=== PATIENT | male | born 1935 | race Caucasian/White ===

== ENCOUNTER → 2016-07-06 | Outpatient (CLI) | payer BC ==
[~2016-07-06] MED LIST: ANT25 PO; ASCA500 PO; ASCO500T16 PO; ASPEC81 PO; ASPI81TA28 PO; BUME1TAB PO; BUME2TAB3 PO; CALC-354 PO; CHOL400C7 PO; CHOL400T PO; CHOLTAB3 PO; CLTP PO; Cholecalciferol PO; FRS/40 PO; FURO40TA3 PO; GLUCTAB18 PO; ISOS30TA3 PO; LSX40 PO; MCRK20 PO; METO5TAB25 PO; NTRGSL/4 UT; OXYC1TAB3 PO; POTA10CA28 PO; REDCAP2 PO; TELM40TA11 PO; TRIA0.1C20 TOP; WARF-283 PO; WARF4TAB PO; WARF5TAB7 PO; WARF5TAB90 PO
[2016-07-06 10:19] LABS: BASO % 0.9 %; BASO ABS # 0.05 K/uL (0-0.2); COMPLETE YES; EOS % 4.7 %; HEMATOCRIT 38.6 % (42-52); IG% 0.2 %; LYMPH % 16.2 %; MEAN CELL VOLUME 91.9 fL (80-100); MEAN CORPUSCULAR HEMOGLOBIN 31.4 pg (25-34); MEAN CORPUSCULAR HGB CONC 34.2 g/dl (32-36); MEAN PLATELET VOLUME 10.9 fL (7.4-10.4); MONO % 15.5 %; NEUT % 62.5 %; PLATELET COUNT 141 K/uL (130-400); WHITE BLOOD COUNT 5.55 K/uL (4.8-10.8)
[2016-07-06 10:39] LABS: ESTIMATED AVERAGE GLUCOSE 131 mg/dl; HA1C FLAG Normal (Normal)
[2016-07-06 10:46] LABS: ALT/SGPT 30 U/L (12-78); BLOOD UREA NITROGEN 30 mg/dl (7-18); BUN/CREATININE RATIO 26.9 (10-20); CALCIUM 9.2 mg/dl (8.5-10.1); CARBON DIOXIDE 30 mmol/L (21-32); CHLORIDE 102 mmol/L (98-107); CHOLESTEROL 187 mg/dl (0-200); GLUCOSE 104 mg/dl (70-99); SODIUM 141 mmol/L (136-145)
[2016-07-06 10:49] LABS: ALKALINE PHOSPHATASE 152 U/L (45-117); AST/SGOT 33 U/L (15-37); CHOLESTEROL/HDL RATIO 1.9; HDL CHOLESTEROL 99 mg/dl; LDL CHOLESTEROL CALCULATED 78 mg/dl; TRIGLYCERIDES 49 mg/dl (0-150); VERY LOW DENSITY LIPOPROT CALC 10 mg/dl
== END | disposition home or self-care (01) ==
LOC: C.LAB 09:08
PROVIDERS: ATTEND Internal Medicine
DX: E11.9 Type 2 diabetes mellitus without complications (principal); Z51.81 Encounter for therapeutic drug level monitoring; Z79.01 Long term (current) use of anticoagulants; Z95.2 Presence of prosthetic heart valve

== ENCOUNTER 2016-09-27 09:58 | Inpatient (IN) | payer BC, OTHER ==
[~2016-09-27] VITALS: Ht 180.3 cm; Wt 91.7 kg
[~2016-09-27 09:58] MED LIST changes: -ASCO500T16 PO; -ASPI81TA28 PO; -BUME1TAB PO; -CALC-354 PO; -CHOL400C7 PO; -CHOL400T PO; -Cholecalciferol PO; -FRS/40 PO; -FURO40TA3 PO; -LSX40 PO; -MCRK20 PO; -OXYC1TAB3 PO; -POTA10CA28 PO; -WARF-283 PO; -WARF5TAB7 PO
[2016-09-27] MEDS ORDERED: ASPI81TA28 PO (10:37)
[2016-09-27] MEDS ORDERED: ASCO500T16 PO (10:37)
[2016-09-27] MEDS ORDERED: CALC-354 PO (10:39)
[2016-09-27] MEDS ORDERED: CHOL400T PO (10:39)
[2016-09-27 10:42] LABS: BASO % 0.5 %; BASO ABS # 0.04 K/uL (0-0.2); COMPLETE YES; EOS % 2.5 %; HEMATOCRIT 35.8 % (42-52); IG% 0.1 %; LYMPH % 12.9 %; LYMPH ABS # 0.98 K/uL (1.2-3.4); MEAN CORPUSCULAR HEMOGLOBIN 31.2 pg (25-34); MEAN CORPUSCULAR HGB CONC 33.5 g/dl (32-36); MEAN PLATELET VOLUME 10.1 fL (7.4-10.4); MONO % 14.8 %; NEUT % 69.2 %; PLATELET COUNT 189 K/uL (130-400); RED BLOOD COUNT 3.85 M/uL (4.7-6.1); WHITE BLOOD COUNT 7.61 K/uL (4.8-10.8)
[2016-09-27 10:44] LABS: POINT OF CARE TROPONIN I 0.04 ng/ml (0-0.045)
--- NOTE | 2016-09-27 10:46 | DIAGNOSTIC IMAGING REPORT ---
CHEST ONE VIEW PORTABLE CLINICAL HISTORY: shortness of breath, edema COMPARISON STUDY: 04/21/2015 FINDINGS: There are postsurgical changes of a midline sternotomy. The heart remains enlarged. There is a left subclavian single chamber central venous pacemaker. There is no overt failure. There are no pleural effusions. There is mild interstitial thickening. No definite Aurelio B lines are evident.[ IMPRESSION: 1. Persistent cardiomegaly. No evidence of focal pulmonary consolidation. No evidence of overt edema. Electronically signed by: Godwin Masters M.D. 09/27/2016 10:45 AM Dictated Date/Time: 09/27/2016 10:44 AM
[2016-09-27 10:50] LABS: INR 2.1 (0.9-1.1); PARTIAL THROMBOPLASTIN RATIO 1.5; PROTHROMBIN TIME (PATIENT) 23.1 SECONDS (9.0-12.0)
[2016-09-27 11:02] LABS: CALCIUM 9.7 mg/dl (8.5-10.1)
[2016-09-27 11:04] LABS: BUN/CREATININE RATIO 24.2 (10-20); CREATININE 1.9 mg/dl (0.60-1.40); POTASSIUM 3.4 mmol/L (3.5-5.1)
[2016-09-27 11:07] LABS: ALB/GLOB RATIO 0.9 (0.9-2)
[2016-09-27 12:00] VITALS: O2SAT 96; Ht 180.3 cm; Wt 91.7 kg
[2016-09-27] MEDS ORDERED: FUROSEMIDE 40 MG/4 ML VIAL IV STA (12:23)
--- NOTE | 2016-09-27 12:25 | History and Physical ---
History & Physical Date & Time of Service: September 27, 2016 at 12:14 Chief Complaint: Referral For Cardiac Issue Primary Care Physician: Rafita Arguello M.D. History of Present Illness Source: patient, clinic records, hospital records This patient is a pleasant 81-year-old male that presents emergency department complaining of an approximately 25 pound weight gain over the last several days and dyspnea with exertion. The patient has a history of CHF, A. fib status post a mechanical AVR and pacemaker. Initially, the patient was treated with Lasix. He says that this no longer works well for him. He was then started on Bumex 4 mg daily, which did control his symptoms for some time. He went back to the traffic investigator earlier this month. His Bumex was increased to 4 mg daily. He was also started on Metolazone twice weekly. He still is unfortunately gaining weight. He denies any anginal symptoms such as chest pain or pressure. No dizziness. Denies any nausea or clamminess. He is otherwise been healthy recently. Past Medical/Surgical History Medical Problems: (1) Atrial fibrillation Status: Chronic (2) CAD (coronary artery disease) Status: Chronic (3) Colon cancer Status: Chronic (4) DM2 (diabetes mellitus, type 2) Status: Chronic (5) Dyslipidemia Status: Chronic (6) Mitral stenosis Status: Chronic (7) Pacemaker Status: Chronic (8) Prostate cancer Status: Chronic (9) Pulmonary hypertension Status: Chronic History of rheumatic fever History of colon cancer status post resection in 2012 Surgical Problems: (1) Aortic valve replaced Status: Resolved (2) Hx of CABG Status: Resolved Family History Cancer Diabetes mellitus Social History Smoking Status: Former Smoker Alcohol Use: none Drug Use: none Marital Status: Housing status: lives alone Occupational Status: retired Immunizations History of Influenza Vaccine: Yes History of Tetanus Vaccine?: Yes History of Pneumococcal: Yes History of Hepatitis B Vaccine: No Multi-Drug Resistant Organisms History of MDRO: No Allergies Coded Allergies: SUSAN Inhibitors (Verified Adverse Reaction, Intermediate, cough, 02/11/16) Statins (Verified Adverse Reaction, Intermediate, myalgia, 02/11/16) Home Medications Scheduled Ascorbic Acid (Ascorbic Acid), 500 MG PO DAILY Aspirin (Aspirin Ec), 81 MG PO DAILY Bumetanide (Bumex), 3 MG PO DAILY Calcium Carbonate-Cholecalcife (Caltrate 600+D), 1 TAB PO BID Cholecalciferol (Vitamin D), 1 TAB PO DAILY Glucosamine-Chondroitin (Osteo Bi-Flex Regular Str), 1 TAB PO QAM Isosorbide Mononitrate Ext Rel (Imdur Ext Rel), 30 MG PO QAM Nitroglycerin (Nitrostat), 0.4 MG UT PRN Red Yeast Rice Extract (Red Yeast Rice), 1,200 MG PO QAM Telmisartan (Micardis), 40 MG PO QPM Warfarin Sodium (Coumadin), 4 MG PO 4XWK Warfarin Sodium (Coumadin), 5 MG PO 3XWK Scheduled PRN Meclizine HCl (Meclizine HCl), 25 MG PO TID PRN for Dizziness or Vertigo Metolazone (Zaroxolyn), 5 MG PO UD PRN for edema Review of Systems 10 system review performed and negative unless noted in HPI or below Physical Exam Vital Signs Date Time Temp Pulse Resp B/P Pulse Ox O2 Delivery O2 Flow Rate FiO2 09/27/16 10:32 64 09/27/16 10:15 96 Room Air 09/27/16 10:15 99 Room Air 09/27/16 10:12 96 Room Air 09/27/16 10:08 36.6 73 18 119/68 96 Room Air General Appearance: no apparent distress Head: normocephalic Eyes: EOMI Neck: no JVD Respiratory/Chest: lungs clear Cardiovascular: regular rate, rhythm, + systolic murmur Abdomen/GI: normal bowel sounds, non tender, soft, + pertinent finding ( slightly distended.) Extremities/Musculoskelatal: + pertinent finding (+2 pitting edema in the lower extremities without any erythema, tenderness or warmth appreciated bilaterally.) Neurologic/Psych: no motor/sensory deficits, oriented x 3 Skin: warm/dry Diagnostics Laboratory Results Results Past 24 Hours Test 09/27/16 10:18 09/27/16 10:24 Range/Units White Blood Count 7.61 4.8-10.8 K/uL Red Blood Count 3.85 4.7-6.1 M/uL Hemoglobin 12.0 14.0-18.0 g/dL Hematocrit 35.8 42-52 % Mean Corpuscular Volume 93.0 80-100 fL Mean Corpuscular Hemoglobin 31.2 25-34 pg Mean Corpuscular Hemoglobin Concent 33.5 32-36 g/dl Platelet Count 189 130-400 K/uL Mean Platelet Volume 10.1 7.4-10.4 fL Neutrophils (%) (Auto) 69.2 % Lymphocytes (%) (Auto) 12.9 % Monocytes (%) (Auto) 14.8 % Eosinophils (%) (Auto) 2.5 % Basophils (%) (Auto) 0.5 % Neutrophils # (Auto) 5.26 1.4-6.5 K/uL Lymphocytes # (Auto) 0.98 1.2-3.4 K/uL Monocytes # (Auto) 1.13 0.11-0.59 K/uL Eosinophils # (Auto) 0.19 0-0.5 K/uL Basophils # (Auto) 0.04 0-0.2 K/uL RDW Standard Deviation 53.6 36.4-46.3 fL RDW Coefficient of Variation 15.9 11.5-14.5 % Immature Granulocyte % (Auto) 0.1 % Immature Granulocyte # (Auto) 0.01 0.00-0.02 K/uL Prothrombin Time 23.1 9.0-12.0 SECONDS Prothromb Time International Ratio 2.1 0.9-1.1 Activated Partial Thromboplast Time 39.6 21.0-31.0 SECONDS Partial Thromboplastin Ratio 1.5 Sodium Level 138 136-145 mmol/L Potassium Level 3.4 3.5-5.1 mmol/L Chloride Level 98 98-107 mmol/L Carbon Dioxide Level 32 21-32 mmol/L Anion Gap 8.0 3-11 mmol/L Blood Urea Nitrogen 46 7-18 mg/dl Creatinine 1.90 0.60-1.40 mg/dl Est Creatinine Clear Calc Drug Dose 37.7 ml/min Estimated GFR () 37.7 Estimated GFR (Non- 32.6 BUN/Creatinine Ratio 24.2 10-20 Random Glucose 97 70-99 mg/dl Calcium Level 9.7 8.5-10.1 mg/dl Total Bilirubin 2.1 0.2-1 mg/dl Aspartate Amino Transf (AST/SGOT) 45 15-37 U/L Alanine Aminotransferase (ALT/SGPT) 33 12-78 U/L Alkaline Phosphatase 163 45-117 U/L Total Protein 7.2 6.4-8.2 gm/dl Albumin 3.4 3.4-5.0 gm/dl Globulin 3.8 2.5-4.0 gm/dl Albumin/Globulin Ratio 0.9 0.9-2 Bedside Troponin I 0.040 0-0.045 ng/ml NI-Zmp-[id number]-Type Natriuretic Peptide 1508 0-1800 pg/ml Diagnostic Radiology Patient: NICK RUSSELL Address1: [address] [place] [address] Rec: [id number] Address2: [facility] [address] Acct ID: [id number] [facility] Zip: [place] [address] Date: 1935 Sex: M Room/Bed: Ref Phy: Rafita Arguello M.D. SC: DANIELLE Att Phy: Report #: [id number] [place] Phy: Rafita Arguello M.D. Test: [id number] Admit Phy: Thread Pulling Machine Attendant: JOHAN Interpreting Phy: Godwin Masters M.D. Diagnosis: REFERRAL FOR CARDIAC ISSUE Ordering Phy: ED, PROTOCOL Service Date: 09/27/16 Admit Date: 09/27/16 MNE: [id number] CONF: DICTATED BY: Godwin Masters M.D.]] CC: ED,PROTOCOL Rafita Arguello M.D. No Doctor, Assigned Endcc: [~ rep ct add3]] CHEST ONE VIEW PORTABLE CLINICAL HISTORY: shortness of breath, edema COMPARISON STUDY: 04/21/2015 FINDINGS: There are postsurgical changes of a midline sternotomy. The heart remains enlarged. There is a left subclavian single chamber central venous pacemaker. There is no overt failure. There are no pleural effusions. There is mild interstitial thickening. No definite Aurelio B lines are evident.[ IMPRESSION: 1. Persistent cardiomegaly. No evidence of focal pulmonary consolidation. No evidence of overt edema. Electronically signed by: Godwin Masters M.D. 09/27/2016 10:45 AM Dictated Date/Time: 09/27/2016 10:44 AM The status of this report is Signed. Draft = Not yet reviewed or approved by Radiologist. Signed = Reviewed and approved by Radiologist. <AttendingPhy></AttendingPhy> <FamilyPhy>Rafita Arguello M.D.</FamilyPhy> < PrimaryPhy>Rafita Arguello M.D.</PrimaryPhy> <UnitNumber>[id number]</UnitNumber> <V EKG Ventricular paced rhythm 87 bpm Impression Assessment and Plan 81-year-old male with a history of coronary artery disease, A. fib, CABG, AVR and pacemaker placement presents to the emergency department with a 25 pound weight gain over the last several days and lower extremity edema. Failed outpatient therapy with oral diuretics Acute congestive heart failure -Admit to telemetry -Begin Lasix 80 mg IV BID -Hold Bumex (home dose 4 mg daily) -Hold metolazone for now -Check echo -Strict I's and O's -Daily weights with standing scale -Cardiology consult Acute renal failure-Baseline creatinine~0.9-1.2. Today creatinine is elevated at 1.9 likely secondary to diuretics -Unfortunately, the patient does need aggressive diuresis. Avoid nephrotoxic agents. -Holding metolazone History of A. fib/AVR with a mechanical valve -Continue Coumadin 5 mg Tuesday, Tuesday, Tuesday and 4 mg on Tuesday, , Tuesday and Tuesday -Daily INR History of coronary artery disease status post CABG -Continue aspirin 81 mg daily, Imdur extended release 30 mg daily, telmisartan 40 mg daily diabetes mellitus -not on meds at home? diet controlled -follow BSGs AC, HS and with meals -insulin sliding scale -check HgbA1C DVT prophylaxis -Coumadin -Teds, SCDs CODE STATUS -LEVEL I FULL CODE i personally examined pt and verified all arguelles points w A Urban PAC despite increasing and altering doses of diuretics - ongoing worsening swelling , weight gain, KESSLER. ros otherwise negative except for as above o: vitals noted, see EMR. questionable faint basilar rales no rhonchi no wheeze, ~3-4+ edema b/l LE no erythema no tenderness CHF - appearing acute on chronic valvular. main ddx is L sided w mitral stenosis vs R sided w TR and ?pulm HTN as "[place]" ---IV diuretics - poor response or poor response and worsening Cr would plead towards R sided pathology ---repeat echo ---cardiology input anticoagulation for DVT proph Level of Care Telemetry Resuscitation Status FULL RESUSCITATION VTE Prophylaxis VTE Risk Assessment Done? Y/N: Yes Risk Level: Low Given or contraindicated: Warfarin (Coumadin), T.EVin Campos, SCD's
[2016-09-27] MEDS ORDERED: ACETAMINOPHEN 325 MG TAB PO PRN (12:30)
[2016-09-27] MEDS ORDERED: ALUMINUM/MAGNESIUM/SIMETH (MAALOX MAX) 30 ML UDC PO PRN (12:30)
[2016-09-27] MEDS ORDERED: POLYETHYLENE (MIRALAX) 17 GM PACK PO PRN (12:30)
[2016-09-27] MEDS ORDERED: ONDANSETRON INJ 2 MG/ML 2 ML VIAL IV PRN (12:30)
[2016-09-27] MEDS ORDERED: MAGNESIUM HYDROXIDE SUSP 30 ML UDC PO PRN (12:30)
--- NOTE | 2016-09-27 12:56 | EMERGENCY ROOM VISIT NOTE ---
History Report prepared by Kayla: Nathan Collins Under the Supervision of: Dr. Randy Moura D.O. First contact with patient: 11:11 Chief Complaint: CARDIAC ASSESSMENT Stated Complaint: REFERRAL FOR CARDIAC ISSUE Nursing Triage Summary: Patient reports history of congestive heart failure, valve replacment, pateint also has pacemaker. Patient has been retaining fluid for the past few days and feeling increasingly short of breath. History of Present Illness The patient is a 81 year old male who presents to the Emergency Room with complaints of persistent urinary retention starting a few days ago. He has not been urinating as frequently as normal. The patient has gained at least 6 pounds in a day. He also reports abdominal distention and worse than normal bilateral lower extremity swelling. He has been taking a diuretic as prescribed without relief. The patient was referred to the Emergency Room by Dr. Samaniego's office. The patient has a history of congestive heart failure, and aortic valve replacement. The patient has a pacemaker in place. The patient denies chest pain , shortness of breath, abdominal pain, or any other complaints. Source of History: patient Onset: a few days ago Position: other (global) Quality: other (urinary retention) Timing: other (persistent) Modifying Factors (Relieving): other (diuretic as prescribed without relief) Associated Symptoms: No SOB, No abdominal pain, No chest pain Review of Systems See HPI for pertinent positives & negatives. A total of 10 systems reviewed and were otherwise negative. Past Medical & Surgical Medical Problems: (1) Atrial fibrillation (2) CAD (coronary artery disease) (3) CHF (congestive heart failure) (4) Colon cancer (5) DM2 (diabetes mellitus, type 2) (6) Dyslipidemia (7) Mitral stenosis (8) Pacemaker (9) Prostate cancer (10) Pulmonary hypertension Surgical Problems: (1) Aortic valve replaced (2) Hx of CABG Family History Cancer Diabetes mellitus Social History Smoking Status: Former Smoker Alcohol Use: other Drug Use: none Marital Status: Occupation Status: retired Current/Historical Medications Scheduled Ascorbic Acid (Ascorbic Acid), 500 MG PO DAILY Aspirin (Aspirin Ec), 81 MG PO DAILY Bumetanide (Bumex), 3 MG PO DAILY Calcium Carbonate-Cholecalcife (Caltrate 600+D), 1 TAB PO BID Cholecalciferol (Vitamin D), 1 TAB PO DAILY Glucosamine-Chondroitin (Osteo Bi-Flex Regular Str), 1 TAB PO QAM Isosorbide Mononitrate Ext Rel (Imdur Ext Rel), 30 MG PO QAM Nitroglycerin (Nitrostat), 0.4 MG UT PRN Red Yeast Rice Extract (Red Yeast Rice), 1,200 MG PO QAM Telmisartan (Micardis), 40 MG PO QPM Warfarin Sodium (Coumadin), 4 MG PO 4XWK Warfarin Sodium (Coumadin), 5 MG PO 3XWK Scheduled PRN Meclizine HCl (Meclizine HCl), 25 MG PO TID PRN for Dizziness or Vertigo Metolazone (Zaroxolyn), 5 MG PO UD PRN for edema Allergies Coded Allergies: SUSAN Inhibitors (Verified Adverse Reaction, Intermediate, cough, 02/11/16) Statins (Verified Adverse Reaction, Intermediate, myalgia, 02/11/16) Physical Exam Vital Signs Date Time Temp Pulse Resp B/P Pulse Ox O2 Delivery O2 Flow Rate FiO2 09/27/16 12:40 77 09/27/16 12:26 72 16 115/72 97 Room Air 09/27/16 12:00 96 Room Air 09/27/16 10:32 64 09/27/16 10:15 96 Room Air 09/27/16 10:15 99 Room Air 09/27/16 10:12 96 Room Air 09/27/16 10:08 36.6 73 18 119/68 96 Room Air Physical Exam CONSTITUTIONAL/VITAL SIGNS: Reviewed / noted above. GENERAL: Non-toxic in appearance. INTEGUMENTARY: Warm, dry, and [place]. HEAD: Normocephalic. EYES: without scleral icterus or trauma. ENT/OROPHARYNX: clear and moist. LYMPHADENOPATHY/NECK: Is supple without lymphadenopathy or meningismus. RESPIRATORY: Lungs clear and equal. CARDIOVASCULAR: Regular rate and rhythm. TANNA. GI/ABDOMEN: Soft and nontender. No organomegaly or pulsatile mass. No rebound or guarding. Normal bowel sounds. Distended abdomen. EXTREMITIES: Warm. Bilateral lower extremity edema. BACK: No CVA tenderness. NEUROLOGICAL: Intact without focal deficits. PSYCHIATRIC: normal affect. MUSCULOSKELETAL: Normally developed with good muscle tone. Medical Decision & Procedures ER Provider Diagnostic Interpretation: X ray results and stated below per my interpretation and radiology interpretation. CHEST ONE VIEW PORTABLE CLINICAL HISTORY: shortness of breath, edema COMPARISON STUDY: 04/21/2015 FINDINGS: There are postsurgical changes of a midline sternotomy. The heart remains enlarged. There is a left subclavian single chamber central venous pacemaker. There is no overt failure. There are no pleural effusions. There is mild interstitial thickening. No definite Aurelio B lines are evident.[ IMPRESSION: 1. Persistent cardiomegaly. No evidence of focal pulmonary consolidation. No evidence of overt edema. Electronically signed by: Godwin Masters M.D. 09/27/2016 10:45 AM Dictated Date/Time: 09/27/2016 10:44 AM Laboratory Results 09/27/16 10:18 Red Blood Count 3.85, Mean Corpuscular Volume 93.0, Mean Corpuscular Hemoglobin 31.2, Mean Corpuscular Hemoglobin Concent 33.5, Mean Platelet Volume 10.1, Neutrophils (%) (Auto) 69.2, Lymphocytes (%) (Auto) 12.9, Monocytes (%) (Auto) 14.8, Eosinophils (%) (Auto) 2.5, Basophils (%) (Auto) 0.5, Neutrophils # (Auto ) 5.26, Lymphocytes # (Auto) 0.98, Monocytes # (Auto) 1.13, Eosinophils # (Auto ) 0.19, Basophils # (Auto) 0.04 09/27/16 10:18 Test 09/27/16 10:18 09/27/16 10:24 White Blood Count 7.61 K/uL (4.8-10.8) Red Blood Count 3.85 M/uL (4.7-6.1) Hemoglobin 12.0 g/dL (14.0-18.0) Hematocrit 35.8 % (42-52) Mean Corpuscular Volume 93.0 fL (80-100) Mean Corpuscular Hemoglobin 31.2 pg (25-34) Mean Corpuscular Hemoglobin Concent 33.5 g/dl (32-36) Platelet Count 189 K/uL (130-400) Mean Platelet Volume 10.1 fL (7.4-10.4) Neutrophils (%) (Auto) 69.2 % Lymphocytes (%) (Auto) 12.9 % Monocytes (%) (Auto) 14.8 % Eosinophils (%) (Auto) 2.5 % Basophils (%) (Auto) 0.5 % Neutrophils # (Auto) 5.26 K/uL (1.4-6.5) Lymphocytes # (Auto) 0.98 K/uL (1.2-3.4) Monocytes # (Auto) 1.13 K/uL (0.11-0.59) Eosinophils # (Auto) 0.19 K/uL (0-0.5) Basophils # (Auto) 0.04 K/uL (0-0.2) RDW Standard Deviation 53.6 fL (36.4-46.3) RDW Coefficient of Variation 15.9 % (11.5-14.5) Immature Granulocyte % (Auto) 0.1 % Immature Granulocyte # (Auto) 0.01 K/uL (0.00-0.02) Prothrombin Time 23.1 SECONDS (9.0-12.0) Prothromb Time International Ratio 2.1 (0.9-1.1) Activated Partial Thromboplast Time 39.6 SECONDS (21.0-31.0) Partial Thromboplastin Ratio 1.5 Anion Gap 8.0 mmol/L (3-11) Est Creatinine Clear Calc Drug Dose 37.7 ml/min Estimated GFR () 37.7 Estimated GFR (Non- 32.6 BUN/Creatinine Ratio 24.2 (10-20) Calcium Level 9.7 mg/dl (8.5-10.1) Total Bilirubin 2.1 mg/dl (0.2-1) Aspartate Amino Transf (AST/SGOT) 45 U/L (15-37) Alanine Aminotransferase (ALT/SGPT) 33 U/L (12-78) Alkaline Phosphatase 163 U/L (45-117) Total Protein 7.2 gm/dl (6.4-8.2) Albumin 3.4 gm/dl (3.4-5.0) Globulin 3.8 gm/dl (2.5-4.0) Albumin/Globulin Ratio 0.9 (0.9-2) Bedside Troponin I 0.040 ng/ml (0-0.045) KR-Bre-V-Type Natriuretic Peptide 1508 pg/ml (0-1800) Laboratory results as stated above per my review. ECG Indication: other (Urinary retention; lower extremity edema) Rate (beats per minute): 87 Rhythm: other (Ventricular paced rhythm ) Findings: PVC, no acute ischemic change ED Course 1111: Previous medical records were reviewed. The patient was evaluated in room C10. A complete history and physical examination was performed. 1133: On reevaluation, the patient is resting comfortably. I discussed the results and findings with him. He verbalized agreement of the treatment plan. I spoke with Dr. Blunt of the [facility]. The patient will be evaluated for further management and care. Medical Decision Differential includes acute coronary syndrome, myocardial infarction, CVA, TIA, anemia, infection, pneumonia, UTI, pyelonephritis, poor nutrition, dehydration, electrolyte disturbance,hypoglycemia. This is an 81-year-old male who presents to the ED with a chief complaint that he was sent here by his longitudinal float operator for inpatient IV therapy for weight gain and edema that has not responded to outpatient therapies. The patient states that he has gained 6 pounds over the last few days and he has had some abdominal distention. He states that he does not seem to be diuresing. His vital signs are stable. He is in no distress. His exam reveals lower extremity edema that is symmetric and pitting. He also has some abdominal wall edema and abdominal distention. Lungs are mostly clear. Systolic ejection murmur and mechanical heart valve auscultated on exam. After speaking with the patient, he states that he is supposed to be admitted for couple of days of IV therapy. Test results include a chest x-ray that was negative for acute disease. CBC was unremarkable. The patient's INR is 2.1, he is on Coumadin. BUN is 46 and creatinine is 1.9. This creatinine is higher than his typical 1.2 from previous visits. Bilirubin is slightly elevated at 2.1. Troponin was negative. BNP is normal for his age. I spoke with the hospitalist, who will see the patient for further inpatient evaluation/treatment as per cardiology. Consults Time Called: 1130 Consulting Physician: Dr. Blunt of the [facility] Returned Call: [phone] Blunt of the [facility]. Impression Primary Impression: Acute renal insufficiency Additional Impression: CHF (congestive heart failure) Scribe Attestation The scribe's documentation has been prepared under my direction and personally reviewed by me in its entirety. I confirm that the note above accurately reflects all work, treatment, procedures, and medical decision making performed by me. Departure Information Dispostion Being Evaluated By Hospitalist Referrals Rafita Arguello M.D. (PCP) Patient Instructions My [facility] Problem Qualifiers
[2016-09-27 16:00] VITALS: O2SAT 97
--- NOTE | 2016-09-27 16:10 | ECHOCARDIOGRAM REPORT ---
*NOTICE TO RECEIVING CONSTITUTION PARTY AGENCY This information is strictly Confidential and protected under [place] law. [place] law prohibits you from making any further disclosure of this information unless further disclosure is expressly permitted by the written consent of the person to whom it pertains or is authorized by law. A general authorization for the release of medical or other information is not sufficient for this purpose. Hospital accepts no responsibility if the information is made available to any other person, INCLUDING THE PATIENT. Interpretation Summary * Name: NICK RUSSELL Study Date: 09/27/2016 01:40 PM BP: 115/72 mmHg * Patient Location: [facility] HR: 87 * : 1935 (M/d/yyyy) Gender: Male Height: 70 in * Age: 81 yrs Ethnicity: [place] Weight: 224 lb * Ordering Physician: Christine Crump * Referring Physician: Isidro Samaniego * Performed By: Daina Mclaughlin, physician/internist, and Ricarda Alvarez RDCS * * Reason For Study: Congestive heart failure * BSA: 2.2 m2 * -- Conclusions -- * Left ventricular systolic function is normal. * No regional wall motion abnormalities noted. * Ejection Fraction = 65-70%. * There is moderate mitral stenosis. * The left atrium is severely dilated. * Elevated doppler velocities across the bioprosthetic aortic valve. Procedure Details * A complete two-dimensional transthoracic echocardiogram was performed (2D, M-mode, Doppler and color flow Doppler). Left Ventricle * The left ventricular cavity is small. * There is mild concentric left ventricular hypertrophy. * Left ventricular systolic function is normal. * Ejection Fraction = 65-70%. * No regional wall motion abnormalities noted. * Flattened septum is consistent with RV volume overload. Right Ventricle * The right ventricular cavity size is enlarged (proximal parasternal long axis right ventricular outflow tract dimension >3.3 cm). * Right ventricular function cannot be assessed due to poor image quality. Atria * The left atrium is severely dilated. * The right atrium is moderately dilated. * There is no evidence of atrial septal defect, but resolution does not allow assessment for a patent foramen ovale. Mitral Valve * The mitral valve is not well visualized. * There is moderate mitral stenosis. * Mitral valve orifice area determined by pressure half-time measurement is 1.1 cm\S\2 * Significant mitral regurgitation is absent. Tricuspid Valve * The tricuspid valve is not well visualized, but is grossly normal. * There is mild tricuspid regurgitation. Aortic Valve * The prosthetic aortic valve is not well visualized. * The gradient is abnormal for this prosthetic aortic valve. Pulmonic Valve * The pulmonary valve is not well seen, but the Doppler examination is normal without significant regurgitation or stenosis. Great Vessels * The aortic root is normal size. * The pulmonary is not well visualized. Pericardium/Pleural * There is no pericardial effusion. Great Vessels * Dilated inferior vena cava with reduced collapsability with sniff indicates an elevated right atrial pressure of 15 mmHg MMode 2D Measurements and Calculations IVSd 1.8 cm IVSs 2.4 cm LVIDd 4.1 cm LVIDs 2.6 cm LVPWd 2.4 cm LVPWs 2.6 cm IVS/LVPW 0.77 FS 36.3 % EDV(Teich) 73.6 ml ESV(Teich) 24.6 ml EF(Teich) 66.5 % EDV(cubed) 68.2 ml ESV(cubed) 17.6 ml EF(cubed) 74.2 % % IVS thick 32.9 % % LVPW thick 9.7 % LV mass(C)d 413.4 grams LV mass(C)dI 188.7 grams/m\S\2 LV mass(C)s 352.1 grams LV mass(C)sI 160.8 grams/m\S\2 CO(Teich) 2.9 l/min CI(Teich) 1.3 l/min/m\S\2 SV(Teich) 49.0 ml SI(Teich) 22.4 ml/m\S\2 CO(cubed) 3.0 l/min CI(cubed) 1.4 l/min/m\S\2 SV(cubed) 50.6 ml SI(cubed) 23.1 ml/m\S\2 LA dimension 5.9 cm asc Aorta Diam 3.8 cm LVAd ap4 28.4 cm\S\2 LVLd ap4 8.0 cm EDV(MOD-sp4) 83.0 ml LVAs ap4 14.2 cm\S\2 LVLs ap4 6.4 cm ESV(MOD-sp4) 28.0 ml EF(MOD-sp4) 66.3 % LVAd ap2 32.9 cm\S\2 LVLd ap2 7.7 cm EDV(MOD-sp2) 116.0 ml LVAs ap2 16.7 cm\S\2 LVLs ap2 6.1 cm ESV(MOD-sp2) 38.0 ml EF(MOD-sp2) 67.2 % CO(MOD-sp4) 3.3 l/min CI(MOD-sp4) 1.5 l/min/m\S\2 SV(MOD-sp4) 55.0 ml SI(MOD-sp4) 25.1 ml/m\S\2 CO(MOD-sp2) 4.7 l/min CI(MOD-sp2) 2.1 l/min/m\S\2 SV(MOD-sp2) 78.0 ml SI(MOD-sp2) 35.6 ml/m\S\2 Doppler Measurements and Calculations MV E max jeri 235.0 cm/sec MV P1/2t max jeri 230.8 cm/sec MV P1/2t 191.5 msec MVA(P1/2t) 1.1 cm\S\2 MV dec slope 353.0 cm/sec\S\2 MV dec time 0.60 sec Ao V2 max 280.1 cm/sec Ao max PG 31.8 mmHg Ao max PG (full) 2.6 mmHg Ao V2 mean 175.0 cm/sec Ao mean PG 15.1 mmHg Ao V2 VTI 66.6 cm LV V1 max PG 29.2 mmHg LV V1 max 270.1 cm/sec PA V2 max 97.6 cm/sec PA max PG 3.8 mmHg PI max jeri 212.8 cm/sec PI max PG 18.1 mmHg PI dec slope 253.3 cm/sec\S\2 PI P1/2t 246.1 msec TR max jeri 233.3 cm/sec
[2016-09-27] MEDS: WARFARIN SOD 5 MG TAB PO SCH (16:45)
[2016-09-27 20:00] VITALS: O2SAT 97
[2016-09-27 20:25] VITALS: BP 125/66; PULSE 67; TEMP 36.5; O2SAT 97
[2016-09-27] MEDS: INSULIN ASPART 100 UNITS/ML 3 ML PEN SC SCH (21:00)
[2016-09-27] MEDS: FUROSEMIDE INJ 80 MG in SYRINGE 0 ML IV SCH (21:43)
[2016-09-27] MEDS: TELMISARTAN 40 MG TAB PO SCH (21:44)
[2016-09-27 23:42] VITALS: BP 116/70; PULSE 56; TEMP 36.7; O2SAT 96
[2016-09-28] VITALS (10 sets, daily range): BP systolic 92–116; BP diastolic 49–77; PULSE 59–105; TEMP 36.5–38.2; O2SAT 91–97
[2016-09-28 06:30] LABS: INR 2.2 (0.9-1.1)
[2016-09-28 06:58] LABS: BUN/CREATININE RATIO 24.6 (10-20); CREATININE 1.7 mg/dl (0.60-1.40); MAGNESIUM 2.3 mg/dl (1.8-2.4); POTASSIUM 3.3 mmol/L (3.5-5.1)
[2016-09-28] MEDS: INSULIN ASPART 100 UNITS/ML 3 ML PEN SC SCH ×4 (07:58→20:38)
[2016-09-28] MEDS: ISOSORBIDE MONONITRATE 30 MG TABCR PO SCH (08:00)
[2016-09-28] MEDS: ASPIRIN 81 MG ECTAB PO SCH (08:00)
[2016-09-28] MEDS: FUROSEMIDE INJ 80 MG in SYRINGE 0 ML IV SCH ×2 (08:00→17:33)
[2016-09-28] MEDS ORDERED: FUROSEMIDE INJ 40 MG in SYRINGE 0 ML IV SCH (09:00)
[2016-09-28] MEDS ORDERED: BUMETANIDE 1 MG TAB PO SCH (09:00)
--- NOTE | 2016-09-28 13:18 | Clinical Documentation Query ---
QUERY 1 OF [address] ABREU, In your clinical opinion is this patient being managed for: ( X ) Acute on chronic valvular heart failure with preserved EF ( ) Other explanation of clinical findings (Please Explain) ( ) Unable to determine (Please Define) ( ) Need to Discuss ( ) Not Agree The medical record reflects the following clinical findings, treatment, and risk factors. Clinical Indicators:81 yo male presenting with acute on chronic valvular CHF. ECHO performed showed EF 65-70%. Treatment: IV lasix, tele monitoring, I/O, daily wts, cardiology consult pending Risk Factors: age, CAD, A fib, DM, CKD QUERY 2 OF 2 In your clinical opinion is this patient being managed for: (X ) Chronic kidney disease, stage 2-3 ( ) Other explanation of clinical findings (Please Explain) ( ) Unable to determine (Please Define) ( ) Need to Discuss ( ) Not Agree The medical record reflects the following clinical findings, treatment, and risk factors. Clinical Indicators: Review of historical GFR showed range of 51.9-72.1 over the past year when not with SUPRIYA Treatment: monitor PRP's, avoid nephrotoxic agents, currently metolazone and bumex on hold Risk Factors: acute diastolic CHF with need for diuresis, CAD, DM, A fib Please clarify and document your clinical opinion in the progress notes and discharge summary. Terms such as "probable", "suspected", "likely", "questionable", "possible", or "still to be ruled out" are acceptable. IF IN AGREEMENT, YOU MUST DOCUMENT ABOVE DIAGNOSTIC STATEMENT IN DAILY PROGRESS NOTES AND DISCHARGE SUMMARY. This document is not part of the patient's record. Thank You, Harika Shetty, RN [phone]
--- NOTE | 2016-09-28 13:58 | Progress Note ---
Subjective Date of Service: September 28, 2016. Subjective Pt evaluation today including: conversation w/ patient, physical exam, chart review, lab review, review of studies, review of inpatient medication list Resting comfortably in bed Still states significant swelling in both legs No worsening shortness of breath No acute incidents overnight Problem List Medical Problems: (1) Acute renal insufficiency Status: Acute Review of Systems Constitutional: No chills, No fever Respiratory: No cough, No dyspnea on exertion, No shortness of breath, No sputum, No wheezing Cardiac: + edema, No chest pain, No orthopnea Abdomen: No constipation, No diarrhea, No nausea, No pain, No vomiting Musculoskeletal: No joint pain, No muscle pain Male : No dysuria, No urinary frequency Psychiatric: No anxiety, No depression symptoms Objective Vital Signs Date Time Temp Pulse Resp B/P Pulse Ox O2 Delivery O2 Flow Rate FiO2 09/28/16 12:00 Room Air 09/28/16 11:10 36.8 65 18 101/62 97 Room Air 09/28/16 08:00 Room Air 09/28/16 07:57 36.6 67 18 116/69 94 Room Air 09/28/16 05:15 36.6 69 16 108/62 09/28/16 05:06 38.2 105 18 94/59 93 09/28/16 04:00 Room Air 09/28/16 00:00 Room Air 09/27/16 23:42 36.7 56 20 116/70 96 Room Air 09/27/16 20:25 36.5 67 18 125/66 97 Room Air 09/27/16 20:00 97 Room Air 09/27/16 16:00 97 Room Air Physical Exam General Appearance: WD/WN, no apparent distress Eyes: normal inspection, EOMI Neck: supple, no adenopathy Respiratory/Chest: chest non-tender, normal breath sounds Cardiovascular: regular rate, rhythm, no gallop Abdomen: non tender, soft Extremities: non-tender, + pedal edema Neurologic/Psychiatric: alert, oriented x 3 Laboratory Results Last 24 Hours Test 09/27/16 16:14 09/27/16 20:52 09/28/16 05:30 09/28/16 07:46 Bedside Glucose 134 mg/dl 160 mg/dl 104 mg/dl Prothrombin Time 24.0 SECONDS Prothromb Time International Ratio 2.2 Sodium Level 140 mmol/L Potassium Level 3.3 mmol/L Chloride Level 99 mmol/L Carbon Dioxide Level 35 mmol/L Anion Gap 6.0 mmol/L Blood Urea Nitrogen 42 mg/dl Creatinine 1.70 mg/dl Est Creatinine Clear Calc Drug Dose 41.4 ml/min Estimated GFR () 43.2 Estimated GFR (Non- 37.3 BUN/Creatinine Ratio 24.6 Random Glucose 105 mg/dl Calcium Level 9.0 mg/dl Magnesium Level 2.3 mg/dl Test 09/28/16 11:27 Bedside Glucose 117 mg/dl Assessment and Plan 81-year-old male with a history of coronary artery disease, A. fib, CABG, AVR and pacemaker placement presents to the emergency department with a 25 pound weight gain over the last several days and lower extremity edema. Failed outpatient therapy with oral diuretics Acute on chronic valvular congestive heart failure -Admit to telemetry -Cont Lasix 80 mg IV BID -Hold Bumex (home dose 4 mg daily) -Hold metolazone for now -Check echo -Strict I's and O's -Daily weights with standing scale -Cardiology consulted Acute renal failure on CKD stage 2-3 -Baseline creatinine~0.9-1.2. Avoid nephrotoxic agents. -Holding metolazone History of A. fib/AVR with a mechanical valve -Continue Coumadin 5 mg Tuesday, Tuesday, Tuesday and 4 mg on Tuesday, , Tuesday and Tuesday -Daily INR History of coronary artery disease status post CABG -Continue aspirin 81 mg daily, Imdur extended release 30 mg daily, telmisartan 40 mg daily diabetes mellitus -not on meds at home? diet controlled -follow BSGs AC, HS and with meals -insulin sliding scale -check HgbA1C DVT prophylaxis -Coumadin -Teds, SCDs CODE STATUS -LEVEL I FULL CODE
[2016-09-28] MEDS: WARFARIN SOD 4 MG TAB PO SCH (15:59)
--- NOTE | 2016-09-28 16:39 | Cardiology Consultation ---
Cardiology Consultation Date of Consultation: September 28, 2016. Requesting Physician: Dr. Crump Reason for Consultation: Edema Pt evaluation today including: conversation w/ patient, physical exam, lab review, review of studies, review of inpatient medication list History of Present Illness This is a 80-year-old gentleman who is status post CABG and aortic valve replacement 1991. He has permanent atrial fibrillation and is on warfarin. He subsequently required single-chamber pacemaker placement in 2008. He had been followed for many years by Dr. Acuna at [facility], but more recently has established cardiology care locally. He has been having a lot of difficulty with fluid retention. An echocardiogram done 11/01/2014 showed normal left ventricular size and function with an ejection fraction of 50-55% and moderate LVH. He had a bioprosthetic aortic valve functioning normally, moderate mitral stenosis and mild mitral regurgitation. He also had severe pulmonary hypertension with a right ventricular systolic pressure 60 mmHg. There were findings of volume and pressure overload of the right ventricle at the time. He has been adjusting his diuretic to try to maintain a steady weight. That was working fairly well until recently when his weight began to steadily increase and increases in diuretic did not result in bringing his weight down. His Lasix therapy was switched to Bumex and subsequently that dose was increased and then Zaroxolyn was added. Despite this his edema continued. At the time of my evaluation he has been diuresed somewhat, he feels better but notes that he still has significant peripheral edema. He has not been having a lot of difficulty with shortness of breath, his fluid retention appears confined to his lower extremities. He is a little bit short of breath when he lays flat but not with exertion. He has no chest discomfort. Past Medical/Surgical History (1) DM2 (diabetes mellitus, type 2) (2) CAD (coronary artery disease) (3) Colon cancer (4) Prostate cancer (5) Dyslipidemia (6) Mitral stenosis (7) Atrial fibrillation (8) Pacemaker (9) Pulmonary hypertension Family History Cancer Diabetes mellitus Social History Smoking Status: Former Smoker History of Alcohol Use: Yes (WINE A GLASS A DAY) Review of Systems Constitutional: No fever, No weakness, No weight loss Respiratory: No cough, No dyspnea on exertion, No shortness of breath, No sputum, No wheezing Cardiac: + edema, + see HPI, No chest pain, No orthopnea Abdomen: No GI bleeding, No diarrhea, No nausea, No pain, No vomiting Male : No nocturia more than once/night, No sexual dysfunction, No slowing stream, No urinary frequency Neurologic: No balance problems, No numbness/tingling, No paralysis, No weakness Heme: No abnormal bleeding/bruising, No clotting problems Endo: No fatigue Skin: No problem reported All Other Systems: Reviewed and Negative Allergies Coded Allergies: SUSAN Inhibitors (Verified Adverse Reaction, Intermediate, cough, 02/11/16) Statins (Verified Adverse Reaction, Intermediate, myalgia, 02/11/16) Medications Current Inpatient Medications Medications (Trade) Dose Ordered Sig/Juanjo Route Start Time Stop Time Status Last Admin Dose Admin Acetaminophen (Tylenol Tab) 650 mg Q4H PRN PO 09/27/16 12:30 10/27/16 12:29 Al Hydrox/Mg Hydrox/Simethicone (Maalox Max Susp) 15 ml Q4H PRN PO 09/27/16 12:30 10/27/16 12:29 Magnesium Hydroxide (Milk Of Magnesia Susp) 30 ml Q12H PRN PO 09/27/16 12:30 10/27/16 12:29 Ondansetron HCl (Zofran Inj) 4 mg Q6H PRN IV 09/27/16 12:30 10/27/16 12:29 Polyethylene (Miralax Powder Packet) 17 gm DAILY PRN PO 09/27/16 12:30 10/27/16 12:29 Aspirin (Ecotrin Tab) 81 mg DAILY PO 09/28/16 09:00 10/28/16 08:59 09/28/16 08:00 81 MG Isosorbide Mononitrate (Imdur Ext Rel Tab) 30 mg QAM PO 09/28/16 09:00 10/28/16 08:59 09/28/16 08:00 30 MG Telmisartan (Micardis Tab) 40 mg QPM PO 09/27/16 21:00 10/27/16 20:59 09/27/16 21:44 40 MG Warfarin Sodium (Coumadin Tab) 4 mg SuTuThSa@1600 PO 09/28/16 16:00 10/28/16 15:59 09/28/16 15:59 4 MG Warfarin Sodium 5 mg 5 mg MoWeFr@1600 PO 09/27/16 16:00 10/27/16 15:59 5/1/17 16:45 5 MG Furosemide/Syringe (Lasix Inj/ Syringe) 8 ml @ 4 mls/min BID17 IV 09/27/16 21:00 10/27/16 20:59 09/28/16 08:00 4 MLS/MIN Insulin Aspart (novoLOG ASPART) SLIDING SCALE G... ACHS SC 09/27/16 21:00 10/27/16 20:59 Physical Exam Vital Signs Past 12 Hours Date Time Temp Pulse Resp B/P Pulse Ox O2 Delivery O2 Flow Rate FiO2 09/28/16 15:52 36.5 79 16 103/49 95 Room Air 09/28/16 12:00 Room Air 09/28/16 11:10 36.8 65 18 101/62 97 Room Air 09/28/16 08:00 Room Air 09/28/16 07:57 36.6 67 18 116/69 94 Room Air 09/28/16 05:15 36.6 69 16 108/62 09/28/16 05:06 38.2 105 18 94/59 93 Constitutional: General Apperance: heathly-appearing Level of Distress: NAD Psychiatric: Mental Status: active & alert Head: normocephalic Eyes: EOM: EOMI ENMT: normal ENT inspection, hearing grossly normal Neck: supple, no masses Lungs: Respiratory effort: no dyspnea, good air movement Auscultation: breath sounds normal, no wheezing Cardiovascular: Heart Auscultation: no murmurs, no rubs, no gallops, irregular rate rhythm Peripheral Pulses: Bruits: none appreciated Abdomen: Bowel Sounds: normal Inspection & Palpation: soft, no tenderness, guarding & rebound, no masses Musculoskeletal: normal strength (5/5 throughout) Extremities: edema (+3 bilateral pretibial and pedal) Neurologic: Cranial Nerves: grossly intact Sensation: grossly intact Data Laboratory Results: Last 24 Hours Test 09/27/16 20:52 09/28/16 05:30 09/28/16 07:46 09/28/16 11:27 Bedside Glucose 160 mg/dl 104 mg/dl 117 mg/dl Prothrombin Time 24.0 SECONDS Prothromb Time International Ratio 2.2 Sodium Level 140 mmol/L Potassium Level 3.3 mmol/L Chloride Level 99 mmol/L Carbon Dioxide Level 35 mmol/L Anion Gap 6.0 mmol/L Blood Urea Nitrogen 42 mg/dl Creatinine 1.70 mg/dl Est Creatinine Clear Calc Drug Dose 41.4 ml/min Estimated GFR () 43.2 Estimated GFR (Non- 37.3 BUN/Creatinine Ratio 24.6 Random Glucose 105 mg/dl Calcium Level 9.0 mg/dl Magnesium Level 2.3 mg/dl Test 09/28/16 16:09 Bedside Glucose 114 mg/dl Imaging: An echocardiogram done 09/27/2016 shows normal left ventricular systolic function with ejection fraction of 65-70%, moderate mitral stenosis and right ventricular enlargement. EKG: Underlying atrial fibrillation with predominantly ventricular pacing with a very wide complex, occasional conducted beats Telemetry reviewed: Underlying atrial fibrillation with intermittent ventricular pacing and intrinsic conduction appropriately. Assessment & Plan #1. Peripheral edema: Clearly fluid overloaded, secondary to right heart failure. His left ventricular ejection fraction is not reduced and he does not seem to be in left-sided congestive heart failure. #2. Right heart failure: He has long-standing elevated pulmonary pressures, he has had difficulty with fluid retention but is generally able to control it with diuretics and fluid restriction. Some of his right heart failure might be due to mitral stenosis although it is graded as moderate and further evaluation has been discussed with him and he prefers not. At this point I don't think there is much else we can do other than diuresis and continue fluid restriction. Hopefully we will able to maintain renal perfusion with further diuresis. #3. Aortic valve replacement: His aortic valve appears to be functioning well with no significant gradient. #4. Permanent atrial fibrillation: He is in permanent atrial fibrillation and is maintained on warfarin. This should be continued. #5. Single-chamber pacemaker: Working well clinically, intermittent pacing. No need for further evaluation at this time. Thank you for allowing me to participate in his care.
[2016-09-28] MEDS: TELMISARTAN 40 MG TAB PO SCH (21:35)
[2016-09-29 04:00] VITALS: O2SAT 95
[2016-09-29 05:26] VITALS: BP 100/61; PULSE 61; TEMP 36.5; O2SAT 93
[2016-09-29 06:12] LABS: INR 2.4 (0.9-1.1); PROTHROMBIN TIME (PATIENT) 26.5 SECONDS (9.0-12.0)
[2016-09-29 06:36] LABS: BUN/CREATININE RATIO 26.4 (10-20); CREATININE 1.5 mg/dl (0.60-1.40); POTASSIUM 3.4 mmol/L (3.5-5.1)
[2016-09-29 07:21] VITALS: BP 110/68; PULSE 79; TEMP 36.7; O2SAT 96
[2016-09-29] MEDS: INSULIN ASPART 100 UNITS/ML 3 ML PEN SC SCH ×4 (08:10→20:19)
[2016-09-29] MEDS: ASPIRIN 81 MG ECTAB PO SCH (08:11)
[2016-09-29] MEDS: FUROSEMIDE INJ 80 MG in SYRINGE 0 ML IV SCH ×2 (08:11→16:59)
[2016-09-29] MEDS: ISOSORBIDE MONONITRATE 30 MG TABCR PO SCH (08:12)
[2016-09-29] MEDS ORDERED: DEXTROSE 50% 50 ML SYR IV PRN (09:45)
[2016-09-29] MEDS ORDERED: GLUCAGON FOR INJ 1 MG VIAL SQ PRN (09:45)
[2016-09-29] MEDS ORDERED: GLUCOSE 40% GEL 15 GM TUBE PO PRN (09:45)
[2016-09-29] MEDS ORDERED: GLUCOSE 10 TABS/TUBE PO PRN (09:45)
[2016-09-29 12:16] VITALS: BP 103/62; PULSE 96; TEMP 36.5; O2SAT 93
--- NOTE | 2016-09-29 15:25 | Progress Note ---
Subjective Date of Service: September 29, 2016. Subjective Pt evaluation today including: conversation w/ patient, physical exam, chart review, lab review, review of studies, review of inpatient medication list Pt resting comfortably in bed No worsening cough, sob, or leg swelling Problem List Medical Problems: (1) Acute renal insufficiency Status: Acute Review of Systems Constitutional: No chills, No fever Respiratory: No cough, No dyspnea on exertion, No shortness of breath, No sputum, No wheezing Cardiac: + edema, No chest pain, No orthopnea Abdomen: No nausea, No pain Musculoskeletal: No joint pain, No muscle pain Male : No dysuria, No urinary frequency Objective Vital Signs Date Time Temp Pulse Resp B/P Pulse Ox O2 Delivery O2 Flow Rate FiO2 09/29/16 12:16 36.5 96 18 103/62 93 09/29/16 11:58 Room Air 09/29/16 08:00 Room Air 09/29/16 07:21 36.7 79 16 110/68 96 Room Air 09/29/16 05:26 36.5 61 20 100/61 93 Room Air 09/29/16 04:00 95 Room Air 09/28/16 23:59 Room Air 09/28/16 23:12 37.0 59 16 92/51 91 Room Air 09/28/16 20:00 95 Room Air 09/28/16 19:49 37.1 90 16 113/77 97 Room Air 09/28/16 17:35 64 107/59 09/28/16 16:00 95 Room Air 09/28/16 15:52 36.5 79 16 103/49 95 Room Air Physical Exam General Appearance: WD/WN, no apparent distress Neck: supple, no adenopathy Respiratory/Chest: lungs clear, normal breath sounds Cardiovascular: regular rate, rhythm, no gallop Abdomen: non tender, soft Extremities: non-tender, + pedal edema Neurologic/Psychiatric: alert, oriented x 3 Laboratory Results Last 24 Hours Test 09/28/16 16:09 09/28/16 20:04 09/29/16 05:43 09/29/16 07:34 Bedside Glucose 114 mg/dl 132 mg/dl 102 mg/dl Prothrombin Time 26.5 SECONDS Prothromb Time International Ratio 2.4 Sodium Level 140 mmol/L Potassium Level 3.4 mmol/L Chloride Level 98 mmol/L Carbon Dioxide Level 35 mmol/L Anion Gap 7.0 mmol/L Blood Urea Nitrogen 40 mg/dl Creatinine 1.50 mg/dl Est Creatinine Clear Calc Drug Dose 46.9 ml/min Estimated GFR () 50.2 Estimated GFR (Non- 43.3 BUN/Creatinine Ratio 26.4 Random Glucose 101 mg/dl Calcium Level 9.0 mg/dl Test 09/29/16 11:37 Bedside Glucose 123 mg/dl Assessment and Plan 81-year-old male with a history of coronary artery disease, A. fib, CABG, AVR and pacemaker placement presents to the emergency department with a 25 pound weight gain over the last several days and lower extremity edema. Failed outpatient therapy with oral diuretics Acute on chronic valvular congestive heart failure with preserved EF -Admit to telemetry -Cont Lasix 80 mg IV BID -Hold Bumex (home dose 4 mg daily) -Hold metolazone for now -Check echo - * Left ventricular systolic function is normal. * No regional wall motion abnormalities noted. * Ejection Fraction = 65-70%. -Strict I's and O's -Daily weights with standing scale -Cardiology consulted, appreciates recs on whether to switch back to lasix or resume on bumex Acute renal failure on CKD stage 2-3 -Baseline creatinine~0.9-1.2. Avoid nephrotoxic agents. -Holding metolazone History of A. fib/AVR with a mechanical valve -Continue Coumadin 5 mg Tuesday, Tuesday, Tuesday and 4 mg on Tuesday, , Tuesday and Tuesday -Daily INR History of coronary artery disease status post CABG -Continue aspirin 81 mg daily, Imdur extended release 30 mg daily, telmisartan 40 mg daily diabetes mellitus -not on meds at home? diet controlled -follow BSGs AC, HS and with meals -insulin sliding scale -check HgbA1C DVT prophylaxis -Coumadin -Teds, SCDs CODE STATUS -LEVEL I FULL CODE
[2016-09-29] MEDS: WARFARIN SOD 5 MG TAB PO SCH (15:47)
[2016-09-29 15:53] VITALS: BP 105/65; PULSE 60; TEMP 36.4; O2SAT 95
[2016-09-29 19:33] VITALS: BP 100/64; PULSE 61; TEMP 36.8; O2SAT 96
[2016-09-29] MEDS: TELMISARTAN 40 MG TAB PO SCH (20:21)
[2016-09-30] VITALS (8 sets, daily range): BP systolic 105–132; BP diastolic 58–82; PULSE 65–87; TEMP 36.4–36.9; O2SAT 90–97
[2016-09-30 06:18] LABS: INR 2.5 (0.9-1.1)
[2016-09-30] MEDS: INSULIN ASPART 100 UNITS/ML 3 ML PEN SC SCH ×4 (06:30→21:00)
[2016-09-30] MEDS: ASPIRIN 81 MG ECTAB PO SCH (08:05)
[2016-09-30] MEDS: FUROSEMIDE 80 MG TAB PO SCH ×2 (08:05→16:36)
[2016-09-30] MEDS: ISOSORBIDE MONONITRATE 30 MG TABCR PO SCH (08:06)
--- NOTE | 2016-09-30 10:10 | Cardiology Follow-Up ---
Subjective Date of Service: September 30, 2016. Pt evaluation today including: conversation w/ patient, physical exam, lab review, review of studies, review of inpatient medication list History of Present Illness Feels well today, considerable improvement in his peripheral edema. He notes however that it is still present. No other complaints, no palpitations and no chest discomfort or shortness of breath. Social History Smoking Status: Former Smoker History of Alcohol Use: Yes (WINE A GLASS A DAY) Review of Systems Respiratory: No cough, No dyspnea on exertion, No shortness of breath, No sputum, No wheezing Cardiac: + edema, No chest pain, No orthopnea Medications Cardiovascular: Item Value Date Time Furosemide 80 mg 09/30/16 0900 (Lasix Tab) BID17/PO 09/30/16 0805 Warfarin Sodium 4 mg 09/28/16 1600 (Coumadin Tab) SuTuThSa@1600/PO 09/28/16 1559 Aspirin 81 mg 09/28/16 0900 (Ecotrin Tab) DAILY/PO 09/30/16 0805 Isosorbide 30 mg 09/28/16 0900 Mononitrate QAM/PO 09/30/16 0806 (Imdur Ext Rel Tab) Telmisartan 40 mg 09/27/16 2100 (Micardis Tab) QPM/PO 09/29/16 2021 Warfarin Sodium 5 mg 09/27/16 1600 (Coumadin Tab) MoWeFr@1600/PO 09/29/16 1547 Objective Vital Signs Past 12 Hours Date Time Temp Pulse Resp B/P Pulse Ox O2 Delivery O2 Flow Rate FiO2 09/30/16 08:00 Room Air 09/30/16 07:02 36.8 72 20 107/62 93 Room Air 09/30/16 04:24 36.8 73 18 108/66 90 Room Air 09/30/16 04:00 Room Air 09/30/16 00:21 36.9 66 20 114/64 94 Room Air 09/29/16 23:59 Room Air Last Recorded Weight-Kilograms: 93.800 Intake & Output 8-Hour Column 09/29/16 09/30/16 09/30/16 16:00 00:00 08:00 Intake Total 885 ml 275 ml 120 ml Output Total 750 ml 1475 ml 950 ml Balance 135 ml -1200 ml -830 ml 24-Hour Column 09/30/16 08:00 Intake Total 1280 ml Output Total 3175 ml Balance -1895 ml Physical Exam Constitutional: Level of Distress: NAD Lungs: Auscultation: breath sounds normal Cardiovascular: Heart Auscultation: irregular rate rhythm Extremities: edema (+2 bilateral pedal and pretibial) Data Laboratory Results: Last 24 Hours Test 09/29/16 11:37 09/29/16 16:34 09/29/16 20:04 09/30/16 05:49 Bedside Glucose 123 mg/dl 103 mg/dl 119 mg/dl Prothrombin Time 28.0 SECONDS Prothromb Time International Ratio 2.5 Test 09/30/16 07:35 Bedside Glucose 101 mg/dl Telemetry reviewed: Atrial fibrillation with both AV conduction and ventricular pacing, appropriate function. One brief run of a wide complex rhythm several beats in duration overnight. Assessment and Plan #1. Peripheral edema: He has been diuresing well but he continues to have fluid overload, secondary to right heart failure. His left ventricular ejection fraction is not reduced and he does not seem to be in left-sided congestive heart failure. He has responded well to diuresis but still has fluid in his legs. His creatinine has not increased (as of yesterday) and has actually improved. I would like to see him close to euhydrated before he goes home to minimize the risk of readmission. #2. Right heart failure: He has long-standing elevated pulmonary pressures, he has had difficulty with fluid retention but is generally able to control it with diuretics and fluid restriction. Some of his right heart failure might be due to mitral stenosis although it is graded as moderate and further evaluation has been discussed with him and he prefers not. At this point I don't think there is much else we can do other than diuresis and continue fluid restriction. Hopefully we will able to maintain renal perfusion with further diuresis. His renal function has improved somewhat with diuresis consistent with cardiorenal syndrome and he may do well at home with the same fluid and diuretic management as he had before, once he is euhydrated. It may be prudent to do an echocardiogram when he is at baseline, his pulmonary pressures may be improved at that point. Thank you for allowing me to participate in his care.
--- NOTE | 2016-09-30 10:44 | Progress Note ---
Subjective Date of Service: September 30, 2016. Subjective Pt evaluation today including: conversation w/ patient, physical exam, chart review, lab review, review of studies, review of inpatient medication list Patient resting comfortably in bed Still leg swelling but reduced from initial presentation No shortness of breath noted No other complaints Problem List Medical Problems: (1) Acute renal insufficiency Status: Acute Review of Systems Constitutional: No chills, No fever Respiratory: No cough, No dyspnea on exertion, No sputum, No wheezing Cardiac: + edema, No chest pain, No orthopnea Abdomen: No diarrhea, No nausea, No pain, No vomiting Musculoskeletal: No joint pain, No muscle pain Male : No dysuria, No urinary frequency Neurologic: No memory loss, No paralysis Objective Vital Signs Date Time Temp Pulse Resp B/P Pulse Ox O2 Delivery O2 Flow Rate FiO2 09/30/16 08:00 Room Air 09/30/16 07:02 36.8 72 20 107/62 93 Room Air 09/30/16 04:24 36.8 73 18 108/66 90 Room Air 09/30/16 04:00 Room Air 09/30/16 00:21 36.9 66 20 114/64 94 Room Air 09/29/16 23:59 Room Air 09/29/16 21:00 Room Air 09/29/16 19:33 36.8 61 20 100/64 96 Room Air 09/29/16 16:10 Room Air 09/29/16 15:53 36.4 60 16 105/65 95 Room Air 09/29/16 12:16 36.5 96 18 103/62 93 09/29/16 11:58 Room Air Physical Exam General Appearance: WD/WN, no apparent distress Neck: supple, no adenopathy Respiratory/Chest: lungs clear, normal breath sounds Cardiovascular: regular rate, rhythm, no gallop Abdomen: non tender, soft Neurologic/Psychiatric: alert, oriented x 3 Laboratory Results Last 24 Hours Test 09/29/16 11:37 09/29/16 16:34 09/29/16 20:04 09/30/16 05:49 Bedside Glucose 123 mg/dl 103 mg/dl 119 mg/dl Prothrombin Time 28.0 SECONDS Prothromb Time International Ratio 2.5 Test 09/30/16 07:35 Bedside Glucose 101 mg/dl Assessment and Plan 81-year-old male with a history of coronary artery disease, A. fib, CABG, AVR and pacemaker placement presents to the emergency department with a 25 pound weight gain over the last several days and lower extremity edema. 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 * No regional wall motion abnormalities noted. * Ejection Fraction = 65-70%. 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 Avoid nephrotoxic agents. -Holding metolazone History of A. fib/AVR with a mechanical valve -Continue Coumadin 5 mg Tuesday, Tuesday, Tuesday and 4 mg on Tuesday, , Tuesday and Tuesday -Daily INR History of coronary artery disease status post CABG -Continue aspirin 81 mg daily, Imdur extended release 30 mg daily, telmisartan 40 mg daily diabetes mellitus -not on meds at home? diet controlled -follow BSGs AC, HS and with meals -insulin sliding scale -check HgbA1C DVT prophylaxis -Coumadin -Teds, SCDs CODE STATUS -LEVEL I FULL CODE
[2016-09-30] MEDS: WARFARIN SOD 4 MG TAB PO SCH (16:36)
[2016-09-30] MEDS: TELMISARTAN 40 MG TAB PO SCH (22:02)
[2016-10-01] VITALS (9 sets, daily range): BP systolic 85–121; BP diastolic 49–74; PULSE 59–80; TEMP 36–36.7; O2SAT 93–99
[2016-10-01] MEDS: INSULIN ASPART 100 UNITS/ML 3 ML PEN SC SCH ×4 (06:30→21:00)
[2016-10-01] MEDS: ISOSORBIDE MONONITRATE 30 MG TABCR PO SCH (07:58)
[2016-10-01] MEDS: FUROSEMIDE 80 MG TAB PO SCH (07:58)
[2016-10-01] MEDS: ASPIRIN 81 MG ECTAB PO SCH (07:59)
[2016-10-01 09:16] LABS: BUN/CREATININE RATIO 23.5 (10-20); CALCIUM 9.4 mg/dl (8.5-10.1); CREATININE 1.6 mg/dl (0.60-1.40); POTASSIUM 3.5 mmol/L (3.5-5.1)
--- NOTE | 2016-10-01 14:05 | Progress Note ---
Subjective Date of Service: October 01, 2016. Subjective Pt evaluation today including: conversation w/ patient, physical exam, chart review, lab review, review of studies, review of inpatient medication list Pt resting comfortably in bed Tolerating lasix States swelling reduced No shortness of breath Problem List Medical Problems: (1) Acute renal insufficiency Status: Acute Review of Systems Constitutional: No chills, No fever Respiratory: No cough, No dyspnea on exertion, No shortness of breath, No sputum, No wheezing Cardiac: + edema, No chest pain, No orthopnea Abdomen: No constipation, No diarrhea, No nausea, No pain, No vomiting Musculoskeletal: No joint pain, No muscle pain Male : No dysuria, No urinary frequency Objective Vital Signs Date Time Temp Pulse Resp B/P Pulse Ox O2 Delivery O2 Flow Rate FiO2 10/01/16 11:45 36.0 60 18 115/66 99 10/01/16 07:07 36.5 59 20 121/74 97 10/01/16 04:00 Room Air 10/01/16 03:35 36.4 80 18 103/58 93 Room Air 10/01/16 00:00 Room Air 09/30/16 23:05 36.9 71 20 107/61 94 Room Air 09/30/16 20:00 Room Air 09/30/16 19:20 36.5 65 18 105/64 96 Room Air 09/30/16 16:00 96 Room Air 09/30/16 15:17 36.4 87 18 132/82 96 Room Air Physical Exam General Appearance: WD/WN, no apparent distress Neck: supple, no adenopathy Respiratory/Chest: lungs clear, normal breath sounds Cardiovascular: no edema, no gallop, no JVD Abdomen: non tender, soft Extremities: non-tender, + pedal edema Neurologic/Psychiatric: alert, oriented x 3 Laboratory Results Last 24 Hours Test 09/30/16 16:27 09/30/16 20:31 10/01/16 07:30 10/01/16 08:35 Bedside Glucose 95 mg/dl 116 mg/dl 95 mg/dl Sodium Level 140 mmol/L Potassium Level 3.5 mmol/L Chloride Level 98 mmol/L Carbon Dioxide Level 36 mmol/L Anion Gap 6.0 mmol/L Blood Urea Nitrogen 38 mg/dl Creatinine 1.60 mg/dl Est Creatinine Clear Calc Drug Dose 42.9 ml/min Estimated GFR () 46.5 Estimated GFR (Non- 40.1 BUN/Creatinine Ratio 23.5 Random Glucose 108 mg/dl Calcium Level 9.4 mg/dl Test 10/01/16 11:04 Bedside Glucose 137 mg/dl Assessment and Plan 81-year-old male with a history of coronary artery disease, A. fib, CABG, AVR and pacemaker placement presents to the emergency department with a 25 pound weight gain over the last several days and lower extremity edema. 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 * No regional wall motion abnormalities noted. * Ejection Fraction = 65-70%. 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 Avoid nephrotoxic agents. -Holding metolazone History of A. fib/AVR with a mechanical valve -Continue Coumadin 5 mg Tuesday, Tuesday, Tuesday and 4 mg on Tuesday, , Tuesday and Tuesday -Daily INR therapeutic History of coronary artery disease status post CABG -Continue aspirin 81 mg daily, Imdur extended release 30 mg daily, telmisartan 40 mg daily diabetes mellitus -not on meds at home? diet controlled -follow BSGs AC, HS and with meals -insulin sliding scale -check HgbA1C DVT prophylaxis -Coumadin -Teds, SCDs CODE STATUS -LEVEL I FULL CODE
[2016-10-01] MEDS: WARFARIN SOD 5 MG TAB PO SCH (16:59)
[2016-10-01] MEDS: FUROSEMIDE 20 MG TAB PO SCH (17:00)
[2016-10-01] MEDS: TELMISARTAN 40 MG TAB PO SCH (21:51)
[2016-10-02 05:06] VITALS: BP 115/71; PULSE 71; TEMP 36.6; O2SAT 96
[2016-10-02 06:10] LABS: INR 2.7 (0.9-1.1); PROTHROMBIN TIME (PATIENT) 29.8 SECONDS (9.0-12.0)
[2016-10-02 07:45] VITALS: BP 114/82; PULSE 65; TEMP 36.4; O2SAT 97
[2016-10-02 08:00] VITALS: O2SAT 97
[2016-10-02] MEDS: ASPIRIN 81 MG ECTAB PO SCH (08:35)
[2016-10-02] MEDS: FUROSEMIDE 20 MG TAB PO SCH (08:36)
[2016-10-02] MEDS: INSULIN ASPART 100 UNITS/ML 3 ML PEN SC SCH (08:36)
[2016-10-02] MEDS: ISOSORBIDE MONONITRATE 30 MG TABCR PO SCH (08:39)
[2016-10-02] MEDS ORDERED: FURO40TA3 PO (11:31)
[2016-10-02] MEDS ORDERED: FRS/40 PO (11:34)
--- NOTE | 2016-10-02 11:35 | Discharge Instructions ---
Discharge Instructions Date of Service October 02, 2016. Admission Reason for Admission: Congestive Heart Failure Discharge Discharge Diagnosis / Problem: Acute chf exacerbation Discharge Goals Goal(s): Decrease discomfort, Improve function, Increase independence, Improve disease control, Learn about illness, Diagnostic testing, Therapeutic intervention, Prevent Disease Progression Activity Recommendations Activity Limitations: resume your previous activity Lifting Limitations: none . Instructions / Follow-Up Instructions / Follow-Up Patient to be discharged home Please stop taking bumex Prescription sent to pharmacy for lasix 40 mg tablet twice daily Please remember to check daily weights Can also take metalozone as needed once daily if weight gain of 2-3 pounds in one day Please follow up with Dr Arguello in 1-2 weeks Current Hospital Diet Patient's current hospital diet: Low Sodium Diet (2gm Na), Diabetes Type 2 Diet , AHA Diet (Heart Healthy) Discharge Diet Recommended Diet: AHA Diet (Heart Healthy), Low Sodium Diet (2gm Na), Diabetes Type 2 Diet Fluid Restriction: 1500 ml (6 cups) Pending Studies Studies pending at discharge: no Laboratory Results Hemoglobin A1c Test 07/06/16 09:25 Range/Units Estimated Average Glucose 131 mg/dl Hemoglobin A1c 6.2 H 4.5-5.6 % Lipid Panel Test 07/06/16 09:25 Range/Units Triglycerides Level 49 0-150 mg/dl Cholesterol Level 187 0-200 mg/dl HDL Cholesterol 99 mg/dl Cholesterol/HDL Ratio 1.9 LDL Cholesterol, Calculated 78 mg/dl Medical Emergencies . Who to Call and When: Medical Emergencies: If at any time you feel your situation is an emergency, please call 911 immediately. . Non-Emergent Contact Non-Emergency issues call your: Primary Care Provider Call Non-Emergent contact if: you have a fever, your pain is worsening . . "Provider Documentation" section prepared by Peter Adhikari. . VTE Core Measure Inpt VTE Proph given/why not?: Warfarin (Coumadin), THugh Campos, SCD's
[2016-10-02 11:42] VITALS: BP 114/82; PULSE 65; TEMP 36.4; O2SAT 97
--- NOTE | 2016-10-02 13:10 | Discharge Summary ---
Discharge Summary Date of Service October 02, 2016. Discharge Summary Admission Date: September 27, 2016 at 12:32 Discharge Date: October 02, 2016 Discharge Disposition: Home Principal Diagnosis: CHF exacerbation Immunizations: Have You Had Influenza Vaccine: Yes History of Tetanus Vaccine?: Yes History of Pneumococcal: Yes History of Hepatitis B Vaccine: No Consultations: Cardiology Medication Reconciliation New Medications: Furosemide (Lasix) 40 Mg Tab 40 MG PO BID for 90 Days, #180 TAB Continued Medications: Ascorbic Acid (Ascorbic Acid) 500 Mg Tab 500 MG PO DAILY Aspirin (Aspirin Ec) 81 Mg Tab 81 MG PO DAILY Calcium Carbonate-Cholecalcife (Caltrate 600+D) 1 Tab Tab 1 TAB PO BID Cholecalciferol (Vitamin D) Unknown Strength Tab 1 TAB PO DAILY Glucosamine-Chondroitin (Osteo Bi-Flex Regular Str) 1 Tab Tab 1 TAB PO QAM Isosorbide Mononitrate Ext Rel (Imdur Ext Rel) 30 Mg Ertab 30 MG PO QAM, TAB Meclizine HCl (Meclizine HCl) 25 Mg Tab 25 MG PO TID PRN for Dizziness or Vertigo Metolazone (Zaroxolyn) 5 Mg Tab 5 MG PO UD PRN for edema takes ~1 hour before Bumex, no more than 1x/wk Nitroglycerin (Nitrostat) 0.4 Mg Tab 0.4 MG UT PRN, 0 Refills Red Yeast Rice Extract (Red Yeast Rice) 600 Mg Cap 1200 MG PO QAM Telmisartan (Micardis) 40 Mg Tab 40 MG PO QPM, 0 Refills Warfarin Sodium (Coumadin) 4 Mg Tab 4 MG PO 4XWK, TAB Warfarin Sodium (Coumadin) 5 Mg Tab 5 MG PO 3XWK, TAB m/w/f Discontinued Medications: Bumetanide (Bumex) 2 Mg Tab 3 MG PO DAILY, TAB Discharge Exam Review of Systems: Constitutional: No chills, No fever Respiratory: No cough, No sputum Cardiovascular: No chest pain, No orthopnea Abdomen: No diarrhea, No nausea, No pain, No vomiting Musculoskeletal: No joint pain, No muscle pain Genitourinary - Male: No dysuria, No hematuria Physical Exam: General Appearance: WD/WN, no apparent distress Neck: supple, no adenopathy Cardiovascular: no edema, no gallop Abdomen / GI: non tender, soft Neurologic/Psychiatric: alert, oriented x 3 Hospital Course 81-year-old male with a history of coronary artery disease, A. fib, CABG, AVR and pacemaker placement presents to the emergency department with a 25 pound weight gain over the last several days and lower extremity edema. Failed outpatient therapy with oral diuretics Acute on chronic valvular congestive heart failure with preserved EF -Admit to telemetry -Improved with Lasix 80 mg IV BID, converted to PO on 10/01/15 -Hold Bumex (home dose 4 mg daily) -Cont metolazone on discharge -Echo - * Left ventricular systolic function is normal. * No regional wall motion abnormalities noted. * Ejection Fraction = 65-70%. 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 Avoid nephrotoxic agents. -Holding metolazone History of A. fib/AVR with a mechanical valve -Continue Coumadin 5 mg Tuesday, Tuesday, Tuesday and 4 mg on Tuesday, , Tuesday and Tuesday -Daily INR therapeutic History of coronary artery disease status post CABG -Continue aspirin 81 mg daily, Imdur extended release 30 mg daily, telmisartan 40 mg daily diabetes mellitus -not on meds at home? diet controlled -follow BSGs AC, HS and with meals -insulin sliding scale -check HgbA1C DVT prophylaxis -Coumadin -Teds, SCDs CODE STATUS -LEVEL I FULL CODE Total Time Spent: Greater than 30 minutes This includes examination of the patient, discharge planning, medication reconciliation, and communication with other providers. Discharge Instructions Please refer to the electronic Patient Visit Report (Discharge Instructions) for additional information. Additional Copies To Rafita Arguello M.D.
[2016-10-04] MEDS ORDERED: FRS/40 PO (08:22)
[2016-12-20] MEDS ORDERED: WARF5TAB7 PO (11:32)
[2017-01-17] MEDS ORDERED: Cholecalciferol PO (11:46)
[2017-01-17] MEDS ORDERED: CHOL400C7 PO (11:49)
[2017-02-03] MEDS ORDERED: MCRK20 PO (08:43)
[2017-02-03] MEDS ORDERED: METO5TAB25 PO (08:43)
[2017-02-04] MEDS ORDERED: POTA10CA28 PO (13:47)
[2017-02-04] MEDS ORDERED: METO5TAB25 PO (13:47)
[2017-03-07] MEDS ORDERED: FERR1TAB13 PO (09:27)
== END 2016-10-02 12:20 | disposition home or self-care (01) | DRG 292 ==
LOC: ENRESERVDT → ENRESERVTM → C.EDB 09:59 → C.MED 12:32
PROVIDERS: ADMIT Family Medicine; ATTEND Hospitalist
DX: I50.33 Acute on chronic diastolic (congestive) heart failure (principal); N17.9 Acute kidney failure, unspecified; I27.0 Primary pulmonary hypertension; N18.3 Chronic kidney disease, stage 3 (moderate); I48.2 Chronic atrial fibrillation; I25.10 Atherosclerotic heart disease of native coronary artery without angina pectoris; I08.1 Rheumatic disorders of both mitral and tricuspid valves; E11.22 Type 2 diabetes mellitus with diabetic chronic kidney disease; Z87.891 Personal history of nicotine dependence; Z95.0 Presence of cardiac pacemaker; Z95.2 Presence of prosthetic heart valve; Z95.1 Presence of aortocoronary bypass graft; Z85.038 Personal history of other malignant neoplasm of large intestine; Z85.46 Personal history of malignant neoplasm of prostate; Z79.82 Long term (current) use of aspirin; Z79.01 Long term (current) use of anticoagulants; Z79.899 Other long term (current) drug therapy; Z51.81 Encounter for therapeutic drug level monitoring

== ENCOUNTER → 2016-10-07 | Outpatient (CLI) | payer BC ==
[~2016-10-07] MED LIST changes: -ASCA500 PO; +ASCO500T16 PO; -ASPEC81 PO; +ASPI81TA28 PO; -BUME2TAB3 PO; +CALC-354 PO; +CHOL400C7 PO; +CHOL400T PO; -CHOLTAB3 PO; -CLTP PO; +Cholecalciferol PO; +FERR1TAB13 PO; +FRS/40 PO; +LSX40 PO; +MCRK20 PO; +OXYC1TAB3 PO; +POTA10CA28 PO; -TRIA0.1C20 TOP; +WARF-283 PO; +WARF5TAB7 PO
[2016-10-07 10:22] LABS: BASO % 0.8 %; BASO ABS # 0.06 K/uL (0-0.2); COMPLETE YES; EOS % 4.1 %; HEMATOCRIT 35.2 % (42-52); IG% 0.3 %; LYMPH % 14.1 %; LYMPH ABS # 1.03 K/uL (1.2-3.4); MEAN CELL VOLUME 93.1 fL (80-100); MEAN CORPUSCULAR HEMOGLOBIN 31.2 pg (25-34); MEAN CORPUSCULAR HGB CONC 33.5 g/dl (32-36); MEAN PLATELET VOLUME 10.6 fL (7.4-10.4); MONO % 13.3 %; NEUT % 67.4 %; PLATELET COUNT 168 K/uL (130-400); RED BLOOD COUNT 3.78 M/uL (4.7-6.1)
[2016-10-07 10:59] LABS: ALT/SGPT 28 U/L (12-78); AST/SGOT 31 U/L (15-37); BLOOD UREA NITROGEN 38 mg/dl (7-18); CALCIUM 9.3 mg/dl (8.5-10.1); CARBON DIOXIDE 33 mmol/L (21-32); CHLORIDE 100 mmol/L (98-107); GLUCOSE 159 mg/dl (70-99); POTASSIUM 3.9 mmol/L (3.5-5.1); SODIUM 138 mmol/L (136-145)
[2016-10-07 11:02] LABS: ALB/GLOB RATIO 0.9 (0.9-2); ALKALINE PHOSPHATASE 155 U/L (45-117); TOTAL IRON BINDING CAPACITY 439 mcg/dl (250-450)
== END | disposition home or self-care (01) ==
LOC: C.LAB 09:49
PROVIDERS: ATTEND Internal Medicine
DX: D64.9 Anemia, unspecified (principal)

== ENCOUNTER → 2016-10-11 | Outpatient (CLI) | payer BC ==
[2016-10-11 11:45] LABS: BASO % 0.8 %; BASO ABS # 0.06 K/uL (0-0.2); COMPLETE YES; EOS % 3.3 %; HEMATOCRIT 36.3 % (42-52); IG% 0.1 %; LYMPH % 15.3 %; LYMPH ABS # 1.12 K/uL (1.2-3.4); MEAN CELL VOLUME 93.8 fL (80-100); MEAN CORPUSCULAR HEMOGLOBIN 30.5 pg (25-34); MEAN CORPUSCULAR HGB CONC 32.5 g/dl (32-36); MEAN PLATELET VOLUME 10.6 fL (7.4-10.4); MONO % 13.1 %; NEUT % 67.4 %; PLATELET COUNT 193 K/uL (130-400); RED BLOOD COUNT 3.87 M/uL (4.7-6.1); WHITE BLOOD COUNT 7.34 K/uL (4.8-10.8)
[2016-10-11 12:17] LABS: BLOOD UREA NITROGEN 33 mg/dl (7-18); BUN/CREATININE RATIO 22.3 (10-20); CARBON DIOXIDE 32 mmol/L (21-32); CHLORIDE 103 mmol/L (98-107); GLUCOSE 149 mg/dl (70-99); POTASSIUM 4.4 mmol/L (3.5-5.1); SODIUM 140 mmol/L (136-145)
[2016-10-11 12:21] LABS: CALCIUM 9.5 mg/dl (8.5-10.1)
== END | disposition home or self-care (01) ==
LOC: C.LAB 10:54
PROVIDERS: ATTEND Internal Medicine
DX: E87.70 Fluid overload, unspecified (principal)

== ENCOUNTER → 2016-10-28 | Outpatient (CLI) | payer BC ==
[2016-10-28 13:00] LABS: BLOOD UREA NITROGEN 49 mg/dl (7-18); BUN/CREATININE RATIO 23.5 (10-20); CALCIUM 9.1 mg/dl (8.5-10.1); CARBON DIOXIDE 28 mmol/L (21-32); CHLORIDE 99 mmol/L (98-107); GLUCOSE 107 mg/dl (70-99); POTASSIUM 4.4 mmol/L (3.5-5.1); SODIUM 139 mmol/L (136-145)
== END | disposition home or self-care (01) ==
LOC: C.LAB 10:19
PROVIDERS: ATTEND Internal Medicine
DX: Z00.00 Encounter for general adult medical examination without abnormal findings (principal)

== ENCOUNTER → 2016-11-04 | Outpatient (CLI) | payer BC ==
[2016-11-04 17:00] LABS: BLOOD UREA NITROGEN 46 mg/dl (7-18); BUN/CREATININE RATIO 25.4 (10-20); CALCIUM 9.3 mg/dl (8.5-10.1); CARBON DIOXIDE 33 mmol/L (21-32); CHLORIDE 99 mmol/L (98-107); GLUCOSE 116 mg/dl (70-99); POTASSIUM 4.2 mmol/L (3.5-5.1); SODIUM 139 mmol/L (136-145)
== END | disposition home or self-care (01) ==
LOC: C.LABBC 13:00
PROVIDERS: ATTEND Internal Medicine
DX: N18.3 Chronic kidney disease, stage 3 (moderate) (principal)

== ENCOUNTER 2016-12-08 08:58 | Emergency (ER) | payer BC ==
[~2016-12-08] VITALS: Ht 180.3 cm; Wt 97.1 kg
[~2016-12-08 08:58] MED LIST changes: -CHOL400C7 PO; -Cholecalciferol PO; -FERR1TAB13 PO; -LSX40 PO; -MCRK20 PO; -OXYC1TAB3 PO; -POTA10CA28 PO; -WARF-283 PO; -WARF5TAB7 PO
[2016-12-08 09:07] VITALS: TEMP 36.5
[2016-12-08 09:20] VITALS: O2SAT 98
--- NOTE | 2016-12-08 09:37 | EMERGENCY ROOM VISIT NOTE ---
History Report prepared by Kayla: Delmar Hoyos Under the Supervision of: Dr. Elias Styles M.D. First contact with patient: 09:11 Chief Complaint: SHOULDER PAIN Stated Complaint: PAIN IN SHOULDER History of Present Illness The patient is a 81 year old male who presents to the Emergency Room with complaints of worsening right shoulder pain that started a week ago. He rates his pain as a 9/10 in severity. He reports that the pain radiates from the base of his skull down to 2 inches of upper arm. The patient states that his pain had gotten better until last night when he felt pain in his shoulder blades. He reports that the pain lasted 2-3 hours and he was concerned that it had to do with his heart, which caused him to take nitroglycerin. The patient reports that the nitroglycerin helped alleviate some pain. He also reports that he experienced shortness of breath yesterday into last night, but admits to chronic shortness of breath. The patient admits that he had injured his right shoulder in the past. He also admits to a history of cancer, a pacemaker, mechanical valve repair, and a bacterial infection in his heart. The patient states that he also has a history of edema in his lower extremities that he typically takes medication and elevates his lower extremities for. He states that he usually visits his family doctor, Dr. Arguello. The patient denies any chest pain, fevers, chills, or taking Coumadin. Source of History: patient Onset: a week ago Position: shoulder (right) Symptom Intensity: 9/10 Timing: worsening Associated Symptoms: + SOB, No fevers, No chills, No chest pain Review of Systems See HPI for pertinent positives & negatives. A total of 10 systems reviewed and were otherwise negative. Past Medical & Surgical Medical Problems: (1) Atrial fibrillation (2) CAD (coronary artery disease) (3) CHF (congestive heart failure) (4) Colon cancer (5) DM2 (diabetes mellitus, type 2) (6) DM2 (diabetes mellitus, type 2) (7) Dyslipidemia (8) Mitral stenosis (9) Pacemaker (10) Prostate cancer (11) Pulmonary hypertension Surgical Problems: (1) Aortic valve replaced (2) Hx of CABG Old medical records were reviewed. Nurse's notes were reviewed and I agree with. Family History Cancer Diabetes mellitus Social History Smoking Status: Never Smoker Alcohol Use: other Drug Use: none Marital Status: Occupation Status: retired Current/Historical Medications Scheduled Ascorbic Acid (Ascorbic Acid), 500 MG PO DAILY Aspirin (Aspirin Ec), 81 MG PO Q2D Calcium Carbonate-Cholecalcife (Caltrate 600+D), 1 TAB PO BID Cholecalciferol (Vitamin D), 1 TAB PO DAILY Furosemide (Furosemide), 1 TAB PO BID Glucosamine-Chondroitin (Osteo Bi-Flex Regular Str), 1 TAB PO QAM Isosorbide Mononitrate Ext Rel (Imdur Ext Rel), 30 MG PO QAM Nitroglycerin (Nitrostat), 0.4 MG UT PRN Red Yeast Rice Extract (Red Yeast Rice), 1,200 MG PO QAM Telmisartan (Micardis), 40 MG PO QPM Warfarin Sodium (Warfarin Sodium), 1 TAB PO QPM Scheduled PRN Meclizine HCl (Meclizine HCl), 25 MG PO TID PRN for Dizziness or Vertigo Metolazone (Zaroxolyn), 5 MG PO UD PRN for edema Oxycodone Immediate Rel Tab (Roxicodone Ir), 1 TAB PO Q6 PRN for Severe Pain Allergies Coded Allergies: SUSAN Inhibitors (Verified Adverse Reaction, Intermediate, cough, 12/08/16) Statins (Verified Adverse Reaction, Intermediate, myalgia, 12/08/16) Physical Exam Vital Signs Date Time Temp Pulse Resp B/P (MAP) Pulse Ox O2 Delivery O2 Flow Rate FiO2 12/08/16 14:04 63 20 126/74 93 Room Air 12/08/16 13:23 69 12/08/16 12:17 79 16 133/72 98 Room Air 12/08/16 11:47 99 Room Air 12/08/16 11:02 64 18 121/66 99 Room Air 12/08/16 09:20 98 Room Air 12/08/16 09:19 63 12/08/16 09:07 36.5 69 20 104/63 98 Room Air Physical Exam General: Well developed well nourished non ill appearing older male in no acute distress, breathing comfortably on room air. Normal speech HEENT: Normal cephalic atraumatic. Pupils are equal round and reactive to light. Extraocular movements are intact. Oropharynx is pink with moist mucous membranes. No swelling of the mouth lips or tongue. Neck: Supple with a midline trachea. No meningeal signs or stiffness, no JVD or bruits. No Stridor. Chest: Scar from previous thoracotomy. Clear to auscultation bilaterally. No wheezes or rhonchi. No increased work of breathing. Heart: regular rate and rhythm. Abdomen: Soft nontender, nondistended without rebound guarding or rigidity. Extremities: Shoulder pain exacerbated with right lateral neck movement to right shoulder. Not red or warm only mildly tender. 1+ lower edema to bilateral lower extremities. No cyanosis. No calf tenderness or assymetry Spine/Back. Non tender to palpation. No CVA tenderness Skin: Good turgor without rashes. Neurologic exam: Cranial nerves two through 12 are intact. Motor and sensation are intact and symmetrical throughout. Medical Decision & Procedures ER Provider Diagnostic Interpretation: Radiology results as stated below per my review and radiologist interpretation: RIGHT SHOULDER 3 VIEWS CLINICAL HISTORY: Right shoulder pain. No reported history of trauma. FINDINGS: 3 views of the right shoulder are compared to study dated 07/27/2006. The skeletal structures are osteopenic. There is chronic posttraumatic deformity of the right humeral neck. No acute fracture is seen. Mild degenerative change is seen at the acromioclavicular joint. The glenohumeral articulation is preserved. The overlying soft tissues are within normal limits. The visualized right lung parenchyma appears clear. The heart is enlarged and midline sternotomy wires are noted. IMPRESSION: 1. No acute fracture or dislocation is seen in the right shoulder. 2. Osteopenia with chronic posttraumatic deformity of the right humeral neck. Electronically signed by: Devante Haddad M.D. 12/08/2016 10:46 AM Dictated Date/Time: 12/08/2016 10:45 AM CHEST ONE VIEW PORTABLE HISTORY:81 yearsMaleCHEST PAIN COMPARISON: 09/27/2016. TECHNIQUE: Portable upright AP view of the chest. FINDINGS: Cardiac silhouette is again enlarged. Prior median sternotomy with surgical clips in the mediastinum. There is atherosclerosis of the aorta. Single lead left pectoral pacer appears unchanged with lead intact. There is no pneumothorax. Mild pulmonary edema pattern has slightly progressed from comparison. There is mild blunting of the costophrenic angles with hazy bibasilar opacities suggesting atelectasis. The bones are grossly intact. IMPRESSION: Cardiomegaly with mild pulmonary edema pattern, trace pleural effusions and bibasilar atelectasis. The above report was generated using voice recognition software. It may contain grammatical, syntax or spelling errors. Electronically signed by: Mak Brice M.D. 12/08/2016 10:44 AM Dictated Date/Time: 12/08/2016 10:[address] SCAN OF THE CERVICAL SPINE CLINICAL HISTORY: Neck pain radiating into the right arm. COMPARISON STUDY: No priors. TECHNIQUE: CT scan of the cervical spine is performed from the skull base to the upper thoracic spine. Images are reviewed in the axial, sagittal, and coronal planes. IV contrast was not administered for this examination. CT DOSE: 486.53 mGycm FINDINGS: Skeletal structures: The skeletal structures are osteopenic. There is no evidence of fracture or subluxation involving the cervical spine. Vertebral body height and alignment are maintained. The odontoid process and lateral masses are intact. The atlantoaxial articulation is preserved noting mild productive degenerative change. The spinous processes appear intact. Small anterior osteophytes are seen throughout. There is mild multilevel cervical spondylosis. Facet arthropathy seen at several levels. Bilateral neural foraminal stenosis is seen at C3-C4, C4-C5, an C5-C6. Intervertebral discs: Moderate disc space narrowing is seen at C3-C4, C4-C5, and C5-C6. Central canal: Small posterior disc osteophyte complexes at C3-C4, C4-C5, and C5-C6 may contribute to minimal acquired compromise of the central canal. Soft tissues: The prevertebral and paraspinous soft tissues are within normal limits. There is atherosclerotic calcification of the carotid bulbs. Pacemaker leads are noted in the left axilla. Calvarium: The visualized calvarium at the skull base appears intact. Brain parenchyma: Partially visualized brain parenchyma the skull base is within normal limits noting age-related involutional change. Sinuses and mastoids: The visualized paranasal sinuses are clear. The mastoid air cells are well pneumatized. Lung apices: Clear as visualized. IMPRESSION: 1. There is no evidence of fracture or subluxation involving the cervical spine. 2. Osteopenia and cervical spondylosis as above. Electronically signed by: Devante Haddad M.D. 12/08/2016 10:08 AM Dictated Date/Time: 12/08/2016 10:05 AM Laboratory Results 12/08/16 09:20 Red Blood Count 3.65, Mean Corpuscular Volume 89.9, Mean Corpuscular Hemoglobin 30.1, Mean Corpuscular Hemoglobin Concent 33.5, Mean Platelet Volume 10.3, Neutrophils (%) (Auto) 64.5, Lymphocytes (%) (Auto) 16.0, Monocytes (%) (Auto) 15.2, Eosinophils (%) (Auto) 3.2, Basophils (%) (Auto) 1.0, Neutrophils # (Auto ) 4.67, Lymphocytes # (Auto) 1.16, Monocytes # (Auto) 1.10, Eosinophils # (Auto ) 0.23, Basophils # (Auto) 0.07 12/08/16 09:20 Test 12/08/16 09:20 12/08/16 09:31 White Blood Count 7.24 K/uL (4.8-10.8) Red Blood Count 3.65 M/uL (4.7-6.1) Hemoglobin 11.0 g/dL (14.0-18.0) Hematocrit 32.8 % (42-52) Mean Corpuscular Volume 89.9 fL (80-100) Mean Corpuscular Hemoglobin 30.1 pg (25-34) Mean Corpuscular Hemoglobin Concent 33.5 g/dl (32-36) Platelet Count 178 K/uL (130-400) Mean Platelet Volume 10.3 fL (7.4-10.4) Neutrophils (%) (Auto) 64.5 % Lymphocytes (%) (Auto) 16.0 % Monocytes (%) (Auto) 15.2 % Eosinophils (%) (Auto) 3.2 % Basophils (%) (Auto) 1.0 % Neutrophils # (Auto) 4.67 K/uL (1.4-6.5) Lymphocytes # (Auto) 1.16 K/uL (1.2-3.4) Monocytes # (Auto) 1.10 K/uL (0.11-0.59) Eosinophils # (Auto) 0.23 K/uL (0-0.5) Basophils # (Auto) 0.07 K/uL (0-0.2) RDW Standard Deviation 56.2 fL (36.4-46.3) RDW Coefficient of Variation 17.1 % (11.5-14.5) Immature Granulocyte % (Auto) 0.1 % Immature Granulocyte # (Auto) 0.01 K/uL (0.00-0.02) Erythrocyte Sedimentation Rate 23 mm/hr (0-14) Prothrombin Time 34.7 SECONDS (9.0-12.0) Prothromb Time International Ratio 3.1 (0.9-1.1) Activated Partial Thromboplast Time 46.2 SECONDS (21.0-31.0) Partial Thromboplastin Ratio 1.8 Anion Gap 7.0 mmol/L (3-11) Est Creatinine Clear Calc Drug Dose 38.9 ml/min Estimated GFR () 40.3 Estimated GFR (Non- 34.8 BUN/Creatinine Ratio 25.1 (10-20) Calcium Level 9.1 mg/dl (8.5-10.1) Total Bilirubin 1.7 mg/dl (0.2-1) Direct Bilirubin 0.7 mg/dl (0-0.2) Aspartate Amino Transf (AST/SGOT) 35 U/L (15-37) Alanine Aminotransferase (ALT/SGPT) 28 U/L (12-78) Alkaline Phosphatase 158 U/L (45-117) Total Creatine Kinase 228 U/L (39-308) Creatine Kinase MB 2.4 ng/ml (0.5-3.6) Creatine Kinase MB Ratio 1.1 (0-3.0) Pro-B-Type Natriuretic Peptide 1190 pg/ml (0-1800) Total Protein 6.9 gm/dl (6.4-8.2) Albumin 3.3 gm/dl (3.4-5.0) Lipase 195 U/L (73-393) Bedside Troponin I < 0.030 ng/ml (0-0.045) Laboratory studies as stated above per my review. Medications Administered Medications (Trade) Dose Ordered Sig/Juanjo Route Start Time Stop Time Status Last Admin Dose Admin Prednisone (PredniSONE TAB) 60 mg NOW STAT PO 12/08/16 13:26 12/08/16 13:28 DC 12/08/16 14:11 60 MG ED Course 0920: Past medical records reviewed. The patient was evaluated in room A09, and a complete history and physical examination were performed. 1030: I reevaluated the patient and he is resting comfortably. I discussed his results and treatment plan. He agrees to admission. The patient will be further evaluated. 1100: I discussed the patient's case with Dr. Cesar, [facility] Hospitalist. He understands the patient's condition and agrees to accept the patient. The patient will be further evaluated. 1115: I will try to rule out a cardiac event. 1320: I discussed the patients case with Dr. Cesar. He feels the patient is stable and able to go home. I reevaluated the patient and he is resting comfortably. He understands the treatment plan and results. The patient was discharged home. Medical Decision Differentials include, but are not limited to; acute coronary syndrome, arrhythmia, cervical disc disease, arthritis, infection, electrolyte abnormality , metabolic abnormality. Medication Reconciliation: I attest that I have personally reviewed the patient' s current medication list. Blood pressure Screening: Patient was found to have normal blood pressure on screening and does not require follow-up. This patient comes in as described above. He has right shoulder pain. He had no chest pain. It was pretty severe last night and it seems to be worse when he turns his neck to the right. He does have a history cardiac disease and other medical problems. EKG does not show any definite ischemic changes. Initial troponin is negative. I did a CAT scan of his neck as well as a chest x -ray and multiple blood testing. He is also on Coumadin. His cardiac enzymes are within normal limits. Chest x-ray does suggest some mild CHF however he has no shortness of breath. He does have some lower extremity edema, he did not take his Lasix last night as he did not feel well. His symptoms are definitely appreciable with movement. I did have Dr. Kline see him who feels he can go home. He wanted me to add a sedimentation rate which I ordered and start him on prednisone for a week. He was given prednisone 60 mg here as well as a taper over the next 6 days. The patient does desire to go home. He was given a small prescription for OxyIR 5 mg that he can take every 6 hours if needed and was warned that this could make him drowsy do not take before drinking, driving, working. He was also told to take his Lasix when he gets home and then take it in the evening is again. He should return if: Worsening of symptoms, fever chills, chest pain, any new problems or concerns. Consults Time Called: 1100 Consulting Physician: Dr. Cesar, [facility] Hospitalist Returned Call: 1100 I discussed the patient's case with Dr. Cesar [facility] Hospitalist. HE understands the patient's condition and agrees to accept the patient. The patient will be further evaluated. Impression Primary Impression: Neck pain on right side Additional Impression: Right shoulder pain Scribe Attestation The scribe's documentation has been prepared under my direction and personally reviewed by me in its entirety. I confirm that the note above accurately reflects all work, treatment, procedures, and medical decision making performed by me. Departure Information Dispostion Home / Self-Care Prescriptions Oxycodone Immediate Rel Tab (ROXICODONE IR) 5 Mg Tab 1 TAB PO Q6 Y for Severe Pain, #10 TAB Prov: Elias Styles M.D. 12/08/16 Referrals Rafita Arguello M.D. (PCP) Forms HOME CARE DOCUMENTATION FORM, IMPORTANT VISIT INFORMATION Patient Instructions My [facility] Additional Instructions Rest. Drink plenty of fluids. Use prednisone taper as directed 60 mg once a day for 2 days then 40 mg once a day for 2 days and 20 mg once a day for 2 days and stop May use Tylenol/Acetaminophen a maximum of 650 mg every 6 hours. Do not take with any other medications that contain acetaminophen/Tylenol For more severe pain may use OxyIR 5 mg, 1 pill every 6 hours as needed OxyIR may make you drowsy do not take before drinking, driving, working Take your evening Lasix dose that you missed when you get home and take your dose again this evening so he have 1 extra dose today Follow-up with your doctor in 1-2 days recheck Return if: Worsening symptoms, shortness of breath, chest pain, any new problems or concerns Problem Qualifiers
[2016-12-08 09:54] LABS: BASO ABS # 0.07 K/uL (0-0.2); COMPLETE YES; EOS % 3.2 %; HEMATOCRIT 32.8 % (42-52); IG% 0.1 %; LYMPH ABS # 1.16 K/uL (1.2-3.4); MEAN CELL VOLUME 89.9 fL (80-100); MEAN CORPUSCULAR HEMOGLOBIN 30.1 pg (25-34); MEAN CORPUSCULAR HGB CONC 33.5 g/dl (32-36); MEAN PLATELET VOLUME 10.3 fL (7.4-10.4); MONO % 15.2 %; NEUT % 64.5 %; PLATELET COUNT 178 K/uL (130-400); RED BLOOD COUNT 3.65 M/uL (4.7-6.1); WHITE BLOOD COUNT 7.24 K/uL (4.8-10.8)
[2016-12-08 10:10] LABS: INR 3.1 (0.9-1.1); PARTIAL THROMBOPLASTIN RATIO 1.8; PROTHROMBIN TIME (PATIENT) 34.7 SECONDS (9.0-12.0)
--- NOTE | 2016-12-08 10:14 | DIAGNOSTIC IMAGING REPORT ---
CT SCAN OF THE CERVICAL SPINE CLINICAL HISTORY: Neck pain radiating into the right arm. COMPARISON STUDY: No priors. TECHNIQUE: CT scan of the cervical spine is performed from the skull base to the upper thoracic spine. Images are reviewed in the axial, sagittal, and coronal planes. IV contrast was not administered for this examination. CT DOSE: 486.53 mGycm FINDINGS: Skeletal structures: The skeletal structures are osteopenic. There is no evidence of fracture or subluxation involving the cervical spine. Vertebral body height and alignment are maintained. The odontoid process and lateral masses are intact. The atlantoaxial articulation is preserved noting mild productive degenerative change. The spinous processes appear intact. Small anterior osteophytes are seen throughout. There is mild multilevel cervical spondylosis. Facet arthropathy seen at several levels. Bilateral neural foraminal stenosis is seen at C3-C4, C4-C5, an C5-C6. Intervertebral discs: Moderate disc space narrowing is seen at C3-C4, C4-C5, and C5-C6. Central canal: Small posterior disc osteophyte complexes at C3-C4, C4-C5, and C5-C6 may contribute to minimal acquired compromise of the central canal. Soft tissues: The prevertebral and paraspinous soft tissues are within normal limits. There is atherosclerotic calcification of the carotid bulbs. Pacemaker leads are noted in the left axilla. Calvarium: The visualized calvarium at the skull base appears intact. Brain parenchyma: Partially visualized brain parenchyma the skull base is within normal limits noting age-related involutional change. Sinuses and mastoids: The visualized paranasal sinuses are clear. The mastoid air cells are well pneumatized. Lung apices: Clear as visualized. IMPRESSION: 1. There is no evidence of fracture or subluxation involving the cervical spine. 2. Osteopenia and cervical spondylosis as above. Electronically signed by: Devante Haddad M.D. 12/08/2016 10:08 AM Dictated Date/Time: 12/08/2016 10:05 AM
[2016-12-08 10:20] LABS: BUN/CREATININE RATIO 25.1 (10-20); CALCIUM 9.1 mg/dl (8.5-10.1); CREATININE 1.8 mg/dl (0.60-1.40); POTASSIUM 4.1 mmol/L (3.5-5.1)
[2016-12-08 10:31] LABS: CKMB/CK RATIO 1.1 (0-3.0)
[2016-12-08] MEDS ORDERED: LSX40 PO (10:33)
[2016-12-08] MEDS ORDERED: WARF-283 PO (10:43)
--- NOTE | 2016-12-08 10:45 | DIAGNOSTIC IMAGING REPORT ---
CHEST ONE VIEW PORTABLE HISTORY:81 yearsMaleCHEST PAIN COMPARISON: 09/27/2016. TECHNIQUE: Portable upright AP view of the chest. FINDINGS: Cardiac silhouette is again enlarged. Prior median sternotomy with surgical clips in the mediastinum. There is atherosclerosis of the aorta. Single lead left pectoral pacer appears unchanged with lead intact. There is no pneumothorax. Mild pulmonary edema pattern has slightly progressed from comparison. There is mild blunting of the costophrenic angles with hazy bibasilar opacities suggesting atelectasis. The bones are grossly intact. IMPRESSION: Cardiomegaly with mild pulmonary edema pattern, trace pleural effusions and bibasilar atelectasis. The above report was generated using voice recognition software. It may contain grammatical, syntax or spelling errors. Electronically signed by: Mak Brice M.D. 12/08/2016 10:44 AM Dictated Date/Time: 12/08/2016 10:43 AM
--- NOTE | 2016-12-08 10:47 | DIAGNOSTIC IMAGING REPORT ---
RIGHT SHOULDER 3 VIEWS CLINICAL HISTORY: Right shoulder pain. No reported history of trauma. FINDINGS: 3 views of the right shoulder are compared to study dated 07/27/2006. The skeletal structures are osteopenic. There is chronic posttraumatic deformity of the right humeral neck. No acute fracture is seen. Mild degenerative change is seen at the acromioclavicular joint. The glenohumeral articulation is preserved. The overlying soft tissues are within normal limits. The visualized right lung parenchyma appears clear. The heart is enlarged and midline sternotomy wires are noted. IMPRESSION: 1. No acute fracture or dislocation is seen in the right shoulder. 2. Osteopenia with chronic posttraumatic deformity of the right humeral neck. Electronically signed by: Devante Haddad M.D. 12/08/2016 10:46 AM Dictated Date/Time: 12/08/2016 10:45 AM
[2016-12-08 11:47] VITALS: O2SAT 99; Ht 180.3 cm; Wt 97.1 kg
--- NOTE | 2016-12-08 13:11 | History and Physical ---
History & Physical Date & Time of Service: Dec 08, 2016 at 12:59 Chief Complaint: Pain In Shoulder Primary Care Physician: Rafita Arguello M.D. History of Present Illness Source: patient 81 y/o M Hx PAF, CAD, R CHF, CKD 3, mechanical aortic valve - presenting with R shoulder/neck pain which he thought might be an anginal equivalent. The pain has persisted since the prior evening and was slightly relieved by a dose of NTG. He denies SOB above baseline, denies N/V, diaphoresis, chest pain or light -headedness. He has full ROM of his R arm. Rotation of his neck elicits pain in both the arm and neck. Past Medical/Surgical History (1) Atrial fibrillation - on Coumadin (2) CAD (3) CHF - R heart - preserved EF - echo 10/13 (4) Colon cancer (6) Pulmonary hypertension (5) DM2 (7) Dyslipidemia (8) Mitral stenosis (9) Pacemaker (10) Prostate cancer (11) CKD 3 - baseline creatinine 1.7-2.0 Surgical Problems: (1) Aortic valve replaced - mechanical (2) Hx of CABG Family History Cancer Diabetes mellitus Social History Smoking Status: Former Smoker Drug Use: none Marital Status: Housing status: lives alone Occupational Status: retired Immunizations History of Influenza Vaccine: Yes History of Tetanus Vaccine?: Yes History of Pneumococcal: Yes History of Hepatitis B Vaccine: No Multi-Drug Resistant Organisms History of MDRO: No Allergies Coded Allergies: SUSAN Inhibitors (Verified Adverse Reaction, Intermediate, cough, 12/08/16) Statins (Verified Adverse Reaction, Intermediate, myalgia, 12/08/16) Home Medications Scheduled Ascorbic Acid (Ascorbic Acid), 500 MG PO DAILY Aspirin (Aspirin Ec), 81 MG PO Q2D Calcium Carbonate-Cholecalcife (Caltrate 600+D), 1 TAB PO BID Cholecalciferol (Vitamin D), 1 TAB PO DAILY Furosemide (Furosemide), 1 TAB PO BID Glucosamine-Chondroitin (Osteo Bi-Flex Regular Str), 1 TAB PO QAM Isosorbide Mononitrate Ext Rel (Imdur Ext Rel), 30 MG PO QAM Nitroglycerin (Nitrostat), 0.4 MG UT PRN Red Yeast Rice Extract (Red Yeast Rice), 1,200 MG PO QAM Telmisartan (Micardis), 40 MG PO QPM Warfarin Sodium (Warfarin Sodium), 1 TAB PO QPM Scheduled PRN Meclizine HCl (Meclizine HCl), 25 MG PO TID PRN for Dizziness or Vertigo Metolazone (Zaroxolyn), 5 MG PO UD PRN for edema Review of Systems Constitutional: No fever, No chills, No sweats Eyes: No worsening of vision ENT: No hearing loss, No unusual epistaxis, No nasal symptoms Respiratory: No cough, No sputum, No wheezing Cardiovascular: No chest pain, No orthopnea, No PND Abdomen: No pain, No nausea, No vomiting Musculoskeletal: + joint pain (R shoulder and neck as above), + muscle pain Genitourinary - Male: No hematuria, No dysuria Neurologic: No memory loss, No paralysis, No weakness Psychiatric: No depression symptoms Endocrine: No fatigue Hematologic / Lymphatic: No abnormal bleeding/bruising Integumentary: No rash Allergic / Immunologic: No environmental allergies Physical Exam Vital Signs Date Time Temp Pulse Resp B/P (MAP) Pulse Ox O2 Delivery O2 Flow Rate FiO2 12/08/16 12:17 79 16 133/72 98 Room Air 12/08/16 11:47 99 Room Air 12/08/16 11:02 64 18 121/66 99 Room Air 12/08/16 09:20 98 Room Air 12/08/16 09:19 63 12/08/16 09:07 36.5 69 20 104/63 98 Room Air General Appearance: WD/WN, no apparent distress Head: normocephalic ENT: normal ENT inspection, pharynx normal Neck: supple, thyroid normal Respiratory/Chest: chest non-tender, lungs clear, normal breath sounds Cardiovascular: regular rate, rhythm, no edema, no gallop Abdomen/GI: normal bowel sounds, non tender, soft Back: normal inspection, no CVA tenderness, no muscle spasm, normal range of motion Extremities/Musculoskelatal: normal inspection, no calf tenderness, normal capillary refill 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, no motor/sensory deficits, alert, normal mood/affect, normal reflexes, oriented x 3 Skin: normal color, warm/dry, no rash Diagnostics Laboratory Results Results Past 24 Hours Test 12/08/16 09:20 12/08/16 09:31 Range/Units White Blood Count 7.24 4.8-10.8 K/uL Red Blood Count 3.65 4.7-6.1 M/uL Hemoglobin 11.0 14.0-18.0 g/dL Hematocrit 32.8 42-52 % Mean Corpuscular Volume 89.9 80-100 fL Mean Corpuscular Hemoglobin 30.1 25-34 pg Mean Corpuscular Hemoglobin Concent 33.5 32-36 g/dl Platelet Count 178 130-400 K/uL Mean Platelet Volume 10.3 7.4-10.4 fL Neutrophils (%) (Auto) 64.5 % Lymphocytes (%) (Auto) 16.0 % Monocytes (%) (Auto) 15.2 % Eosinophils (%) (Auto) 3.2 % Basophils (%) (Auto) 1.0 % Neutrophils # (Auto) 4.67 1.4-6.5 K/uL Lymphocytes # (Auto) 1.16 1.2-3.4 K/uL Monocytes # (Auto) 1.10 0.11-0.59 K/uL Eosinophils # (Auto) 0.23 0-0.5 K/uL Basophils # (Auto) 0.07 0-0.2 K/uL RDW Standard Deviation 56.2 36.4-46.3 fL RDW Coefficient of Variation 17.1 11.5-14.5 % Immature Granulocyte % (Auto) 0.1 % Immature Granulocyte # (Auto) 0.01 0.00-0.02 K/uL Prothrombin Time 34.7 9.0-12.0 SECONDS Prothromb Time International Ratio 3.1 0.9-1.1 Activated Partial Thromboplast Time 46.2 21.0-31.0 SECONDS Partial Thromboplastin Ratio 1.8 Sodium Level 138 136-145 mmol/L Potassium Level 4.1 3.5-5.1 mmol/L Chloride Level 101 98-107 mmol/L Carbon Dioxide Level 30 21-32 mmol/L Anion Gap 7.0 3-11 mmol/L Blood Urea Nitrogen 45 7-18 mg/dl Creatinine 1.80 0.60-1.40 mg/dl Est Creatinine Clear Calc Drug Dose 38.9 ml/min Estimated GFR () 40.3 Estimated GFR (Non- 34.8 BUN/Creatinine Ratio 25.1 10-20 Random Glucose 80 70-99 mg/dl Calcium Level 9.1 8.5-10.1 mg/dl Total Bilirubin 1.7 0.2-1 mg/dl Direct Bilirubin 0.7 0-0.2 mg/dl Aspartate Amino Transf (AST/SGOT) 35 15-37 U/L Alanine Aminotransferase (ALT/SGPT) 28 12-78 U/L Alkaline Phosphatase 158 45-117 U/L Total Creatine Kinase 228 39-308 U/L Creatine Kinase MB 2.4 0.5-3.6 ng/ml Creatine Kinase MB Ratio 1.1 0-3.0 Pro-B-Type Natriuretic Peptide 1190 0-1800 pg/ml Total Protein 6.9 6.4-8.2 gm/dl Albumin 3.3 3.4-5.0 gm/dl Lipase 195 73-393 U/L Bedside Troponin I < 0.030 0-0.045 ng/ml Diagnostic Radiology CT cervical spine 1. There is no evidence of fracture or subluxation involving the cervical spine. 2. Osteopenia and cervical spondylosis are present. EKG Nondiagnostic - vetricular pacing Impression Assessment and Plan 81 y/o M Hx PAF, CAD, R CHF, CKD 3, mechanical aortic valve - presenting with R shoulder/neck pain which he thought might be an anginal equivalent. The pain has persisted since the prior evening and was slightly relieved by a dose of NTG. He denies SOB above baseline, denies N/V, diaphoresis, chest pain or light -headedness. He has full ROM of his R arm. Rotation of his neck elicits pain in both the arm and neck. 1) Neck / arm pain - I do not believe this is cardiac in nature - there is no troponin elevation despite persistence of the pain for over 12 hours. We will recommend an ESR and then a steroid taper as an anti-inflammatory since the pt has CKD 3. We would recommend a follow-up MRI if the pain does not resolve. 2) CAD - again we do not believe the issue is related - the pt is fully anticoagulated with Coumadin - cont Imdur, ASA 3) CHF - euvolemic at time of evaluation - Cont Lasix/Metolazone 4) CKD - renal function at baseline 5) Pt is anemic - this is chronic but may be gradually worsening - should f/u with his primary 6) PAF, mechanical aortic valve - paced rhythm - INR is therapeutic on Coumadin Above discussed with pt and ER attending - total time for this consult including review of labs, meds, EKG, previous records - 34 min Above billed as a consult - pt D/Cd from ER Advanced Directives Existing Living Will: Yes Existing Power of Support Services Tech: Yes (NANDO SON) Resuscitation Status FULL RESUSCITATION VTE Prophylaxis Given or contraindicated: Warfarin (Coumadin)
[2016-12-08] MEDS ORDERED: OXYC1TAB3 PO (13:34)
[2016-12-08 14:04] VITALS: BP 126/74; PULSE 63; O2SAT 93
[2016-12-20] MEDS ORDERED: WARF5TAB7 PO (11:32)
[2017-01-17] MEDS ORDERED: Cholecalciferol PO (11:46)
[2017-01-17] MEDS ORDERED: CHOL400C7 PO (11:49)
[2017-02-03] MEDS ORDERED: METO5TAB25 PO (08:43)
[2017-02-03] MEDS ORDERED: MCRK20 PO (08:43)
[2017-02-04] MEDS ORDERED: POTA10CA28 PO (13:47)
[2017-02-04] MEDS ORDERED: METO5TAB25 PO (13:47)
[2017-03-07] MEDS ORDERED: FERR1TAB13 PO (09:27)
== END 2016-12-08 14:20 | disposition home or self-care (01) ==
LOC: C.EDB 08:58 → C.EDA 14:20
DX: M25.511 Pain in right shoulder (principal); M54.2 Cervicalgia; Z85.038 Personal history of other malignant neoplasm of large intestine; I27.0 Primary pulmonary hypertension; I48.2 Chronic atrial fibrillation; I25.10 Atherosclerotic heart disease of native coronary artery without angina pectoris; Z95.0 Presence of cardiac pacemaker; Z95.2 Presence of prosthetic heart valve; Z95.1 Presence of aortocoronary bypass graft; Z85.46 Personal history of malignant neoplasm of prostate; Z79.82 Long term (current) use of aspirin; Z79.01 Long term (current) use of anticoagulants; Z79.899 Other long term (current) drug therapy; E78.5 Hyperlipidemia, unspecified; I05.0 Rheumatic mitral stenosis; Z80.9 Family history of malignant neoplasm, unspecified; Z83.3 Family history of diabetes mellitus; N18.3 Chronic kidney disease, stage 3 (moderate); Z87.891 Personal history of nicotine dependence; D64.9 Anemia, unspecified; I50.9 Heart failure, unspecified

== ENCOUNTER 2016-12-24 00:58 | Emergency (ER) | payer BC ==
[~2016-12-24] VITALS: Ht 180.3 cm; Wt 97.3 kg
[~2016-12-24 00:58] MED LIST changes: -FRS/40 PO; +LSX40 PO; +WARF-283 PO; -WARF4TAB PO; +WARF5TAB7 PO; -WARF5TAB90 PO
[2016-12-24 01:12] VITALS: TEMP 36.6
[2016-12-24 01:36] VITALS: Ht 180.3 cm; Wt 97.3 kg
[2016-12-24 02:12] LABS: MANUAL MICROSCOPIC REQUIRED? NO; REVIEW REQ? NO; URINE APPEARANCE CLEAR (CLEAR); URINE BILIRUBIN NEG (NEG); URINE COLOR YELLOW; URINE NITRITE NEG (NEG); URINE PH 5.5 (4.5-7.5); URINE SPECIFIC GRAVITY 1.016 (1.000-1.030); UROBILINOGEN NEG (NEG)
[2016-12-24 02:17] LABS: BASO % 0.6 %; BASO ABS # 0.05 K/uL (0-0.2); COMPLETE YES; EOS % 1.9 %; HEMATOCRIT 30.7 % (42-52); IG% 0.2 %; LYMPH % 12.7 %; MEAN CORPUSCULAR HEMOGLOBIN 30.1 pg (25-34); MEAN CORPUSCULAR HGB CONC 34.2 g/dl (32-36); MONO % 11.9 %; NEUT % 72.7 %; PLATELET COUNT 202 K/uL (130-400); RED BLOOD COUNT 3.49 M/uL (4.7-6.1); WHITE BLOOD COUNT 8.63 K/uL (4.8-10.8)
[2016-12-24 02:21] LABS: POINT OF CARE PRO-BNP 1286 pg/ml (0-1800); POINT OF CARE TROPONIN I < 0.030 ng/ml (0-0.045)
[2016-12-24 02:26] LABS: INR 2.5 (0.9-1.1); PROTHROMBIN TIME (PATIENT) 28.3 SECONDS (9.0-12.0)
[2016-12-24 02:37] LABS: BUN/CREATININE RATIO 25.4 (10-20); CREATININE 1.8 mg/dl (0.60-1.40); POTASSIUM 4.4 mmol/L (3.5-5.1)
[2016-12-24 02:40] LABS: ALB/GLOB RATIO 0.9 (0.9-2)
[2016-12-24 03:01] VITALS: BP 109/70
--- NOTE | 2016-12-24 03:05 | EMERGENCY ROOM VISIT NOTE ---
History Report prepared by Sherylibnayeli: Xavi Matthews Under the Supervision of: Leticia CooperO. First contact with patient: 01:19 Chief Complaint: URINARY SYMPTOMS Stated Complaint: BLOCKED BLADDER History of Present Illness The patient is a 81 year old male who presents to the Emergency Room with complaints of worsening abdominal and bilateral leg swelling beginning two days ago. He states that he has not urinated in over two days. He states that he has been having problems with fluid retention recently. The patient states" I have at least 8 pounds of fluid in me". He also complains of shortness of breath. Source of History: patient Onset: Two days ago Position: abdomen, leg (bilateral) Quality: other (swelling) Timing: worsening Associated Symptoms: + SOB, + urinary symptoms (inability to urinate for two days) Review of Systems See HPI for pertinent positives and negatives. A total of ten systems were reviewed and were otherwise negative. Past Medical & Surgical Medical Problems: (1) Atrial fibrillation (2) CAD (coronary artery disease) (3) CHF (congestive heart failure) (4) Colon cancer (5) DM2 (diabetes mellitus, type 2) (6) DM2 (diabetes mellitus, type 2) (7) Dyslipidemia (8) Mitral stenosis (9) Pacemaker (10) Prostate cancer (11) Pulmonary hypertension Surgical Problems: (1) Aortic valve replaced (2) Hx of CABG Family History Cancer Diabetes mellitus Social History Smoking Status: Former Smoker Alcohol Use: other Drug Use: none Marital Status: Occupation Status: retired Current/Historical Medications Scheduled Ascorbic Acid (Ascorbic Acid), 500 MG PO DAILY Aspirin (Aspirin Ec), 81 MG PO Q2D Calcium Carbonate-Cholecalcife (Caltrate 600+D), 1 TAB PO BID Cholecalciferol (Vitamin D), 1 TAB PO DAILY Furosemide (Furosemide), 1 TAB PO BID Glucosamine-Chondroitin (Osteo Bi-Flex Regular Str), 1 TAB PO QAM Isosorbide Mononitrate Ext Rel (Imdur Ext Rel), 30 MG PO QAM Nitroglycerin (Nitrostat), 0.4 MG UT PRN Red Yeast Rice Extract (Red Yeast Rice), 1,200 MG PO QAM Telmisartan (Micardis), 40 MG PO QPM Warfarin Sod (Jantoven), 5 MG PO WK Warfarin Sodium (Warfarin Sodium), 4 MG PO [id number] Scheduled PRN Meclizine HCl (Meclizine HCl), 25 MG PO TID PRN for Dizziness or Vertigo Metolazone (Zaroxolyn), 5 MG PO UD PRN for edema Allergies Coded Allergies: SUSAN Inhibitors (Verified Adverse Reaction, Intermediate, cough, 12/24/16) Statins (Verified Adverse Reaction, Intermediate, myalgia, 12/24/16) Physical Exam Vital Signs Date Time Temp Pulse Resp B/P (MAP) Pulse Ox O2 Delivery O2 Flow Rate FiO2 12/24/16 01:51 66 12/24/16 01:12 36.6 71 18 102/63 97 Room Air Physical Exam GENERAL: Awake, alert, well-appearing, in no distress HENT: Normocephalic, atraumatic. Oropharynx unremarkable. EYES: Normal conjunctiva. Sclera non-icteric. NECK: Supple. No nuchal rigidity. FROM. No JVD. RESPIRATORY: Clear to auscultation. CARDIAC: Regular rate, normal rhythm. AV valve click noted. Extremities warm and well perfused. Pulses equal. ABDOMEN: Soft, non-distended. No tenderness to palpation. No rebound or guarding. No masses. RECTAL: Deferred. MUSCULOSKELETAL: Chest examination reveals no tenderness. The back is symmetrical on inspection without obvious abnormality. There is no CVA tenderness to palpation. No joint edema. LOWER EXTREMITIES: Pitting edema bilaterally. NEURO: Normal sensorium. No sensory or motor deficits noted. SKIN: No rash or jaundice noted. Medical Decision & Procedures ER Provider Diagnostic Interpretation: One View Chest X-ray interpreted by me: cardiomegaly. Pacemaker in place. Slight increased pulmonary markings. Laboratory Results 12/24/16 01:50 Red Blood Count 3.49, Mean Corpuscular Volume 88.0, Mean Corpuscular Hemoglobin 30.1, Mean Corpuscular Hemoglobin Concent 34.2, Mean Platelet Volume 10.0, Neutrophils (%) (Auto) 72.7, Lymphocytes (%) (Auto) 12.7, Monocytes (%) (Auto) 11.9, Eosinophils (%) (Auto) 1.9, Basophils (%) (Auto) 0.6, Neutrophils # (Auto ) 6.27, Lymphocytes # (Auto) 1.10, Monocytes # (Auto) 1.03, Eosinophils # (Auto ) 0.16, Basophils # (Auto) 0.05 12/24/16 01:50 Test 12/24/16 01:42 12/24/16 01:50 12/24/16 02:02 Urine Color YELLOW Urine Appearance CLEAR (CLEAR) Urine pH 5.5 (4.5-7.5) Urine Specific [place] 1.016 (1.000-1.030) Urine Protein 2+ (NEG) Urine Glucose (UA) NEG (NEG) Urine Ketones NEG (NEG) Urine Occult Blood NEG (NEG) Urine Nitrite NEG (NEG) Urine Bilirubin NEG (NEG) Urine Urobilinogen NEG (NEG) Urine Leukocyte Esterase NEG (NEG) Urine WBC (Auto) 1-5 /hpf (0-5) Urine RBC (Auto) 0-4 /hpf (0-4) Urine Hyaline Casts (Auto) 1-5 /lpf (0-5) Urine Epithelial Cells (Auto) 10-20 /lpf (0-5) Urine Bacteria (Auto) NEG (NEG) White Blood Count 8.63 K/uL (4.8-10.8) Red Blood Count 3.49 M/uL (4.7-6.1) Hemoglobin 10.5 g/dL (14.0-18.0) Hematocrit 30.7 % (42-52) Mean Corpuscular Volume 88.0 fL (80-100) Mean Corpuscular Hemoglobin 30.1 pg (25-34) Mean Corpuscular Hemoglobin Concent 34.2 g/dl (32-36) Platelet Count 202 K/uL (130-400) Mean Platelet Volume 10.0 fL (7.4-10.4) Neutrophils (%) (Auto) 72.7 % Lymphocytes (%) (Auto) 12.7 % Monocytes (%) (Auto) 11.9 % Eosinophils (%) (Auto) 1.9 % Basophils (%) (Auto) 0.6 % Neutrophils # (Auto) 6.27 K/uL (1.4-6.5) Lymphocytes # (Auto) 1.10 K/uL (1.2-3.4) Monocytes # (Auto) 1.03 K/uL (0.11-0.59) Eosinophils # (Auto) 0.16 K/uL (0-0.5) Basophils # (Auto) 0.05 K/uL (0-0.2) RDW Standard Deviation 57.8 fL (36.4-46.3) RDW Coefficient of Variation 18.0 % (11.5-14.5) Immature Granulocyte % (Auto) 0.2 % Immature Granulocyte # (Auto) 0.02 K/uL (0.00-0.02) Prothrombin Time 28.3 SECONDS (9.0-12.0) Prothromb Time International Ratio 2.5 (0.9-1.1) Anion Gap 7.0 mmol/L (3-11) Est Creatinine Clear Calc Drug Dose 38.9 ml/min Estimated GFR () 40.3 Estimated GFR (Non- 34.8 BUN/Creatinine Ratio 25.4 (10-20) Calcium Level 9.0 mg/dl (8.5-10.1) Total Bilirubin 2.0 mg/dl (0.2-1) Aspartate Amino Transf (AST/SGOT) 34 U/L (15-37) Alanine Aminotransferase (ALT/SGPT) 31 U/L (12-78) Alkaline Phosphatase 193 U/L (45-117) Total Protein 6.9 gm/dl (6.4-8.2) Albumin 3.3 gm/dl (3.4-5.0) Globulin 3.6 gm/dl (2.5-4.0) Albumin/Globulin Ratio 0.9 (0.9-2) Bedside Troponin I < 0.030 ng/ml (0-0.045) [id number]-Type Natriuretic Peptide 1286 pg/ml (0-1800) Laboratory results reviewed by me ECG Indication: SOB/dyspnea Rate (beats per minute): 89 Rhythm: other (paced rhythm) ED Course 0127: The patient was evaluated in room B7. A complete history and physical exam was performed. Bladder scan reveals 247 cc of urine. 0305: I reevaluated the patient. Discussed results and discharge instructions: he verbalized understanding and agreement. The patient is ready for discharge. Medical Decision Differential diagnoses include but are not limited to; CHF, renal failure, metabolic derangement, and urinary retention. Patient felt much better after a Guzman catheter was placed. Patient only had 250 ML's of urine. I do not suspect urinary retention. Patient has no current evidence of congestive heart failure and is in no distress on reexamination. Patient is to follow-up with his primary care physician and continue his Lasix and to return for any worsening symptoms Impression Primary Impression: Bilateral lower extremity edema Additional Impression: Dysuria Scribe Attestation The scribe's documentation has been prepared under my direction and personally reviewed by me in its entirety. I confirm that the note above accurately reflects all work, treatment, procedures, and medical decision making performed by me. Departure Information Dispostion Home / Self-Care Referrals Rafita Arguello M.D. (PCP) Patient Instructions ED Leg Swelling Bilateral, ED Retention Urinary Male, My [facility] Problem Qualifiers
[2016-12-24 03:06] VITALS: PULSE 66; O2SAT 96
--- NOTE | 2016-12-24 07:05 | DIAGNOSTIC IMAGING REPORT ---
CHEST ONE VIEW PORTABLE CLINICAL HISTORY: Shortness of breath. COMPARISON STUDY: Chest radiograph December 08, 2016. FINDINGS: A left subclavian pacemaker, median sternotomy wires and mediastinal surgical clips are noted. There is no pneumothorax or pleural effusion. Cardiomegaly is unchanged. There is mitral annular calcification. Pulmonary edema has improved since exam of December 08, 2016. Linear right basilar opacity is suggestive of atelectasis or scarring. IMPRESSION: 1. Interval resolution of pulmonary edema since prior exam. 2. Stable cardiomegaly. 3. No consolidation to suggest pneumonia. Electronically signed by: Monico Zuniga M.D. 12/24/2016 7:03 AM Dictated Date/Time: 12/24/2016 7:02 AM
[2017-01-17] MEDS ORDERED: Cholecalciferol PO (11:46)
[2017-01-17] MEDS ORDERED: CHOL400C7 PO (11:49)
[2017-02-03] MEDS ORDERED: METO5TAB25 PO (08:43)
[2017-02-03] MEDS ORDERED: MCRK20 PO (08:43)
[2017-02-04] MEDS ORDERED: POTA10CA28 PO (13:47)
[2017-02-04] MEDS ORDERED: METO5TAB25 PO (13:47)
[2017-03-07] MEDS ORDERED: FERR1TAB13 PO (09:27)
== END 2016-12-24 03:20 | disposition home or self-care (01) ==
LOC: C.EDB 00:59
DX: R60.0 Localized edema (principal); R30.0 Dysuria; R34 Anuria and oliguria; R06.02 Shortness of breath; I48.91 Unspecified atrial fibrillation; I25.10 Atherosclerotic heart disease of native coronary artery without angina pectoris; I50.9 Heart failure, unspecified; E11.9 Type 2 diabetes mellitus without complications; E78.5 Hyperlipidemia, unspecified; I05.0 Rheumatic mitral stenosis; I51.7 Cardiomegaly; I27.2 Other secondary pulmonary hypertension; Z95.0 Presence of cardiac pacemaker; Z79.82 Long term (current) use of aspirin; Z79.01 Long term (current) use of anticoagulants; Z87.891 Personal history of nicotine dependence; Z85.038 Personal history of other malignant neoplasm of large intestine; Z85.46 Personal history of malignant neoplasm of prostate; Z95.2 Presence of prosthetic heart valve; Z95.1 Presence of aortocoronary bypass graft; Z83.3 Family history of diabetes mellitus

== ENCOUNTER → 2017-01-19 | Outpatient (CLI) | payer BC ==
[~2017-01-19] MED LIST changes: +CHOL400C7 PO; -CHOL400T PO; +FERR1TAB13 PO; +MCRK20 PO; +POTA10CA28 PO
[2017-01-19 17:27] LABS: URINE APPEARANCE CLEAR (CLEAR); URINE BILIRUBIN NEG (NEG); URINE COLOR YELLOW; URINE EPITHELIAL CELL AUTO 0-5 /lpf (0-5); URINE NITRITE NEG (NEG); URINE PH 5.5 (4.5-7.5); URINE SPECIFIC GRAVITY 1.016 (1.000-1.030); UROBILINOGEN NEG (NEG)
[2017-01-19 17:36] LABS: MANUAL MICROSCOPIC REQUIRED? NO; REVIEW REQ? NO
== END | disposition home or self-care (01) ==
LOC: C.LABBC 13:48
PROVIDERS: ATTEND Internal Medicine
DX: R33.9 Retention of urine, unspecified (principal)

== ENCOUNTER 2017-01-27 15:09 | Inpatient (IN) | payer BC, OTHER ==
[~2017-01-27] VITALS: Ht 180.3 cm; Wt 95.8 kg
[~2017-01-27 15:09] MED LIST changes: -FERR1TAB13 PO; -MCRK20 PO; -POTA10CA28 PO
--- NOTE | 2017-01-27 16:15 | DIAGNOSTIC IMAGING REPORT ---
CHEST ONE VIEW PORTABLE HISTORY: 81 years-old Male CHEST PAIN COMPARISON: Portable chest radiograph 12/24/2016 TECHNIQUE: Portable upright AP view of the chest FINDINGS: Cardiac silhouette is again markedly enlarged. Prior median sternotomy. There is atherosclerosis of the aorta. Left subclavian pacer device is noted with single lead intact. There is no pneumothorax, pleural effusion, focal airspace consolidation or overt pulmonary edema. There is improved aeration of the right lung base from comparison. The bones are mildly demineralized appear grossly intact with degenerative changes present throughout the spine and shoulders. IMPRESSION: Cardiomegaly without acute cardiopulmonary process. The above report was generated using voice recognition software. It may contain grammatical, syntax or spelling errors. Electronically signed by: Mak Brice M.D. 01/27/2017 4:14 PM Dictated Date/Time: 01/27/2017 4:12 PM
[2017-01-27 16:18] LABS: BASO % 0.5 %; BASO ABS # 0.03 K/uL (0-0.2); EOS % 2.3 %; HEMATOCRIT 24.9 % (42-52); IG% 0.2 %; MEAN CELL VOLUME 83.3 fL (80-100); MEAN CORPUSCULAR HEMOGLOBIN 28.4 pg (25-34); MEAN CORPUSCULAR HGB CONC 34.1 g/dl (32-36); MEAN PLATELET VOLUME 9.5 fL (7.4-10.4); PLATELET COUNT 227 K/uL (130-400); RED BLOOD COUNT 2.99 M/uL (4.7-6.1); WHITE BLOOD COUNT 6.45 K/uL (4.8-10.8)
[2017-01-27 16:28] LABS: INR 2.8 (0.9-1.1)
[2017-01-27 16:41] LABS: BUN/CREATININE RATIO 26.6 (10-20); CALCIUM 9.5 mg/dl (8.5-10.1); POTASSIUM 3.5 mmol/L (3.5-5.1)
[2017-01-27 16:47] LABS: COMPLETE YES; SCHISTOCYTES 1+
[2017-01-27] MEDS ORDERED: ACETAMINOPHEN 325 MG TAB PO PRN (17:15)
[2017-01-27] MEDS ORDERED: POLYETHYLENE (MIRALAX) 17 GM PACK PO PRN (17:15)
[2017-01-27] MEDS ORDERED: ALUMINUM/MAGNESIUM/SIMETH (MAALOX MAX) 30 ML UDC PO PRN (17:15)
[2017-01-27] MEDS ORDERED: MAGNESIUM HYDROXIDE SUSP 30 ML UDC PO PRN (17:15)
[2017-01-27] MEDS ORDERED: ONDANSETRON INJ 2 MG/ML 2 ML VIAL IV PRN (17:15)
--- NOTE | 2017-01-27 17:16 | EMERGENCY ROOM VISIT NOTE ---
History Report prepared by Kayla: Jonah Ware Under the Supervision of: Dr. Santiago Beverly M.D. First contact with patient: 15:39 Chief Complaint: SHORTNESS OF BREATH Stated Complaint: FLUID RETENTION, SOB History of Present Illness The patient is a 81 year old male who presents to the Emergency Room with complaints of worsening shortness of breath for the past few weeks. The patient is additionally complaining of fluid retention. He states that he was recently put on pills by his urologist, though he is unsure what they are called. He states that he was allergic to them, so he stopped taking them, and his normal Lasix is not working. He states that his last dose of Lasix was last night, and he takes 8mg once per day. He is currently denying fever, chills, nausea, vomiting, diarrhea, urinary symptoms, and cough. Source of History: patient Onset: past few weeks Position: other (shortness of breath) Quality: other (shortness of breath) Timing: worsening Associated Symptoms: No fevers, No chills, No cough, No nausea, No vomiting , No diarrhea Note: Associated symptoms: Fluid retention Review of Systems See HPI for pertinent positives and negatives. A total of ten systems were reviewed and were otherwise negative. Past Medical & Surgical Medical Problems: (1) Anasarca (2) Atrial fibrillation (3) CAD (coronary artery disease) (4) CHF (congestive heart failure) (5) CHF exacerbation (6) Colon cancer (7) DM2 (diabetes mellitus, type 2) (8) DM2 (diabetes mellitus, type 2) (9) Dyslipidemia (10) Mitral stenosis (11) Pacemaker (12) Prostate cancer (13) Pulmonary hypertension Surgical Problems: (1) Aortic valve replaced (2) Hx of CABG Family History Cancer Diabetes mellitus Social History Smoking Status: Former Smoker Alcohol Use: other Drug Use: none Marital Status: Occupation Status: retired Current/Historical Medications Scheduled Ascorbic Acid (Ascorbic Acid), 500 MG PO QAM Aspirin (Aspirin Ec), 81 MG PO Q2D Calcium Carbonate-Cholecalcife (Caltrate 600+D), 1 TAB PO QAM Cholecalciferol (Vitamin D 400 Iu), 400 INTER.UNIT PO QAM Furosemide (Furosemide), 1 TAB PO BID Glucosamine-Chondroitin (Osteo Bi-Flex Regular Str), 1 TAB PO QAM Isosorbide Mononitrate Ext Rel (Imdur Ext Rel), 30 MG PO QAM Red Yeast Rice Extract (Red Yeast Rice), 1,200 MG PO QAM Telmisartan (Micardis), 40 MG PO QPM Warfarin Sod (Jantoven), 2.5 MG PO 4XWK Warfarin Sodium (Warfarin Sodium), 4 MG PO 3XWK Scheduled PRN Meclizine HCl (Meclizine HCl), 25 MG PO TID PRN for Dizziness or Vertigo Metolazone (Zaroxolyn), 5 MG PO UD PRN for edema Nitroglycerin (Nitrostat), 0.4 MG UT PRN PRN for Chest Pain Allergies Coded Allergies: Alfuzosin (Verified Allergy, Unknown, FLUID RETENTION AND JOINT PAINS, ) SUSAN Inhibitors (Verified Adverse Reaction, Intermediate, cough, 01/27/17) Statins (Verified Adverse Reaction, Intermediate, myalgia, 01/27/17) Physical Exam Vital Signs Date Time Temp Pulse Resp B/P (MAP) Pulse Ox O2 Delivery O2 Flow Rate FiO2 01/27/17 15:49 99 Room Air 01/27/17 15:46 71 01/27/17 15:18 98 Room Air 01/27/17 15:12 36.3 88 20 98/68 97 Physical Exam GENERAL: Awake, alert, well-appearing, in no distress HENT: Dry Mucous membranes. Normocephalic, atraumatic. Oropharynx unremarkable. EYES: Normal conjunctiva. Sclera non-icteric. NECK: Mild JVD. Supple. No nuchal rigidity. FROM. RESPIRATORY: Lung sounds diminished at the bases CARDIAC: Regular rate, normal rhythm. Extremities warm and well perfused. Pulses equal. ABDOMEN: Distended abdomen and soft consistent with ascites. No tenderness to palpation. No rebound or guarding. No masses. RECTAL: Deferred. MUSCULOSKELETAL: Chest examination reveals no tenderness. The back is symmetrical on inspection without obvious abnormality. There is no CVA tenderness to palpation. No joint edema. LOWER EXTREMITIES: 4+ bilateral pitting edema. Calves are equal size bilaterally and non-tender. No discoloration. NEURO: Normal sensorium. No sensory or motor deficits noted. SKIN: No rash or jaundice noted. Medical Decision & Procedures ER Provider Diagnostic Interpretation: Radiology results as stated below per my review and radiologist interpretation: CHEST ONE VIEW PORTABLE HISTORY: 81 years-old Male CHEST PAIN COMPARISON: Portable chest radiograph 12/24/2016 TECHNIQUE: Portable upright AP view of the chest FINDINGS: Cardiac silhouette is again markedly enlarged. Prior median sternotomy. There is atherosclerosis of the aorta. Left subclavian pacer device is noted with single lead intact. There is no pneumothorax, pleural effusion, focal airspace consolidation or overt pulmonary edema. There is improved aeration of the right lung base from comparison. The bones are mildly demineralized appear grossly intact with degenerative changes present throughout the spine and shoulders. IMPRESSION: Cardiomegaly without acute cardiopulmonary process. The above report was generated using voice recognition software. It may contain grammatical, syntax or spelling errors. Electronically signed by: Mak Brice M.D. 01/27/2017 4:14 PM Dictated Date/Time: 01/27/2017 4:12 PM Laboratory Results Test 01/27/17 16:00 Immature Granulocyte % (Auto) 0.2 % White Blood Count 6.45 K/uL (4.8-10.8) Red Blood Count 2.99 M/uL (4.7-6.1) Hemoglobin 8.5 g/dL (14.0-18.0) Hematocrit 24.9 % (42-52) Mean Corpuscular Volume 83.3 fL (80-100) Mean Corpuscular Hemoglobin 28.4 pg (25-34) Mean Corpuscular Hemoglobin Concent 34.1 g/dl (32-36) Platelet Count 227 K/uL (130-400) Mean Platelet Volume 9.5 fL (7.4-10.4) Neutrophils (%) (Auto) 72.0 % Lymphocytes (%) (Auto) 14.0 % Monocytes (%) (Auto) 11.0 % Eosinophils (%) (Auto) 2.3 % Basophils (%) (Auto) 0.5 % Neutrophils # (Auto) 4.65 K/uL (1.4-6.5) Lymphocytes # (Auto) 0.90 K/uL (1.2-3.4) Monocytes # (Auto) 0.71 K/uL (0.11-0.59) Eosinophils # (Auto) 0.15 K/uL (0-0.5) Basophils # (Auto) 0.03 K/uL (0-0.2) Immature Granulocyte # (Auto) 0.01 K/uL (0.00-0.02) Schistocytes 1+ Total Bilirubin 1.8 mg/dl (0.2-1) Direct Bilirubin 0.7 mg/dl (0-0.2) Aspartate Amino Transf (AST/SGOT) 30 U/L (15-37) Alanine Aminotransferase (ALT/SGPT) 24 U/L (12-78) Alkaline Phosphatase 133 U/L (45-117) Troponin I 0.040 ng/ml (0-0.045) Pro-B-Type Natriuretic Peptide 2119 pg/ml (0-1800) Total Protein 6.6 gm/dl (6.4-8.2) Albumin 3.1 gm/dl (3.4-5.0) Laboratory results reviewed by me ECG Indication: SOB/dyspnea Rate (beats per minute): 74 Rhythm: other (Ventricular paced) Findings: no acute ischemic change, paced rhythm, other (Prolonged QTC) Comparison ECG Date: 12/24/16 Change: no significant change ED Course 1539: The patient was evaluated in room A9. A complete history and physical exam was performed. 1616: Discussed the patient's case with Dr. Oliva. The patient will be evaluated for further treatment and disposition. Medical Decision I reviewed the patient's past medical history, medications, and the nursing notes as described above. The patient's presentation and history were concerning for CHF, ACS, renal failure, liver failure. Patient is an 81-year-old gentleman with a past medical history of CHF and hypertension who presents to emergency department with worsening shortness of breath and bilateral lower extremity edema per history of present illness. Arrival the patient is no acute distress, afebrile stable vital signs. Has 4+ bilateral pitting edema in the lower extremities and distended abdomen consistent with anasarca otherwise soft and nontender. Lungs are diminished at the bases but otherwise clear. EKG unremarkable. Troponin negative. BNP elevated from recent. Chest x-ray shows cardiomegaly but no significant venous congestion. Will need admission for diuresis. Given patient's significant Lasix home dose of 80 mg and current soft blood pressures with systolic in the 90s, will defer diuresis regimen to admitting team. Case was discussed with the medicine team who will admit the patient for further management. Medication Reconcilliation Current Medication List: was personally reviewed by me Blood Pressure Screening Patient's blood pressure: Low blood pressure Blood pressure disposition: Elevated BP felt to be situational Consults Time Called: 1609 Consulting Physician: Dr. Oliva Returned Call: 1616 Discussed the patient's case with Dr. Oliva. The patient will be evaluated for further treatment and disposition. Impression Primary Impression: CHF (congestive heart failure) Scribe Attestation The scribe's documentation has been prepared under my direction and personally reviewed by me in its entirety. I confirm that the note above accurately reflects all work, treatment, procedures, and medical decision making performed by me. Departure Information Dispostion Being Evaluated By Hospitalist Referrals Rafita Arguello M.D. (PCP) Patient Instructions My [facility]
[2017-01-27] MEDS ORDERED: MECLIZINE HCL 25 MG TAB PO PRN (17:30)
[2017-01-27] MEDS ORDERED: NITROGLYCERIN 0.4 MG SL PER TAB CHARGE UT PRN (17:30)
--- NOTE | 2017-01-27 17:36 | History and Physical ---
History & Physical Date & Time of Service: Jan 27, 2017 at 17:23 Chief Complaint: Fluid Retention, Sob Primary Care Physician: Rafita Arguello M.D. History of Present Illness Source: patient, family (son at bedside), clinic records, hospital records This is an 81 y/o male with a history of diastolic CHF, HTN, HLD, mechanical AVR , h/o a-fib, sick sinus syndrome, s/p pacemaker, CKD stage III, h/o prostate cancer s/p radiation, and h/o colon cancer s/p partial colectomy who presented to the ED on 01/27 with worsening shortness of breath, weight gain, and swelling. The patient has a history of CHF and states that his goal weight is around 200 pounds. He had been doing well until earlier this month when he went to see urology, who started him on alfuzosin. The patient states that after starting this, his Lasix "stopped working" and he was no longer having good urine output. He states that he is still urinating, but very little. He began to retain fluid despite taking Lasix everyday. He stopped the alfuzosin after 3 days. He states that he gained about 27 pounds a few days after starting alfuzosin. He tried taking his metolazone too without any change. He complains of worsening shortness of breath and dyspnea on exertion. The patient complains of a non-productive cough that he associates more with dryness in his throat. He complains of significant swelling in the legs. The patient denies fevers, chills, sweats, chest pain, palpitations, claudication, wheezing, nausea, vomiting, abdominal pain, dysuria, hematuria, paralysis, weakness, numbness and tingling. Past Medical/Surgical History Medical Problems: (1) Atrial fibrillation Status: Chronic (2) CAD (coronary artery disease) Status: Chronic (3) Colon cancer s/p partial colectomy 2012 Status: Chronic 4) Dyslipidemia Status: Chronic (5) Mitral stenosis Status: Chronic (6) Pacemaker Status: Chronic (7) Prostate cancer s/p radiation 1998 Status: Chronic (8) Pulmonary hypertension Status: Chronic Surgical Problems: (1) Aortic valve replaced, mechanical Status: Resolved (2) Hx of CABG x1 Status: Resolved Family History Cancer Coronary artery disease Diabetes mellitus Social History Smoking Status: Former Smoker (quit in 1966) Smokeless Tobacco Use: No Alcohol Use: socially (wine) Drug Use: none Marital Status: Housing status: lives alone Occupational Status: retired Immunizations History of Influenza Vaccine: Yes History of Tetanus Vaccine?: Yes History of Pneumococcal: Yes History of Hepatitis B Vaccine: No Multi-Drug Resistant Organisms History of MDRO: No Allergies Coded Allergies: Alfuzosin (Verified Allergy, Unknown, FLUID RETENTION AND JOINT PAINS, ) SUSAN Inhibitors (Verified Adverse Reaction, Intermediate, cough, 01/27/17) Statins (Verified Adverse Reaction, Intermediate, myalgia, 01/27/17) Home Medications Scheduled Ascorbic Acid (Ascorbic Acid), 500 MG PO QAM Aspirin (Aspirin Ec), 81 MG PO Q2D Calcium Carbonate-Cholecalcife (Caltrate 600+D), 1 TAB PO QAM Cholecalciferol (Vitamin D 400 Iu), 400 INTER.UNIT PO QAM Furosemide (Furosemide), 1 TAB PO BID Glucosamine-Chondroitin (Osteo Bi-Flex Regular Str), 1 TAB PO QAM Isosorbide Mononitrate Ext Rel (Imdur Ext Rel), 30 MG PO QAM Red Yeast Rice Extract (Red Yeast Rice), 1,200 MG PO QAM Telmisartan (Micardis), 40 MG PO QPM Warfarin Sod (Jantoven), 2.5 MG PO 4XWK Warfarin Sodium (Warfarin Sodium), 4 MG PO 3XWK Scheduled PRN Meclizine HCl (Meclizine HCl), 25 MG PO TID PRN for Dizziness or Vertigo Metolazone (Zaroxolyn), 5 MG PO UD PRN for edema Nitroglycerin (Nitrostat), 0.4 MG UT PRN PRN for Chest Pain Review of Systems Constitutional: No fever, No chills, No sweats Eyes: No worsening of vision, No eye pain, No diplopia ENT: No hearing loss, No sore throat, No trouble swallowing Respiratory: + cough, + shortness of breath, + dyspnea on exertion, No sputum, No wheezing Cardiovascular: No chest pain, No claudication, No palpitations Abdomen: No pain, No nausea, No vomiting Musculoskeletal: + swelling, No joint pain, No muscle pain, No calf pain Genitourinary - Male: + urinary retention, No hematuria, No dysuria Neurologic: No paralysis, No weakness, No numbness/tingling Integumentary: No rash, No itch, No color change Physical Exam Vital Signs Date Time Temp Pulse Resp B/P (MAP) Pulse Ox O2 Delivery O2 Flow Rate FiO2 01/27/17 15:49 99 Room Air 01/27/17 15:46 71 01/27/17 15:18 98 Room Air 01/27/17 15:12 36.3 88 20 98/68 97 General appearance: +Obese. Well-developed, well-nourished, no apparent distress Head: Normocephalic, atraumatic Eyes: Normal inspection, PERRL, EOMI ENT: Normal ENT inspection, hearing grossly normal, pharynx normal Neck: Supple, no JVD, trachea midline Respiratory/Chest: +Slight crackles left base. Diminished breath sounds in bases bilaterally. No respiratory distress Cardiovascular: +Irregular rhythm. Regular rate, no gallop, no murmur Abdomen/GI: Normal bowel sounds, non-tender, soft Extremities/Musculoskeletal: +4+ pitting edema in lower extremities bilaterally. Pitting extends up legs to the abdomen. Unable to palpate pedal pulses due to edema. Normal inspection, no calf tenderness Neurological/Psych: Alert, normal mood/affect, oriented x 3 Skin: Normal color, warm/dry, no rash Diagnostics Laboratory Results Results Past 24 Hours Test 01/27/17 16:00 Range/Units White Blood Count 6.45 4.8-10.8 K/uL Red Blood Count 2.99 4.7-6.1 M/uL Hemoglobin 8.5 14.0-18.0 g/dL Hematocrit 24.9 42-52 % Mean Corpuscular Volume 83.3 80-100 fL Mean Corpuscular Hemoglobin 28.4 25-34 pg Mean Corpuscular Hemoglobin Concent 34.1 32-36 g/dl Platelet Count 227 130-400 K/uL Mean Platelet Volume 9.5 7.4-10.4 fL Neutrophils (%) (Auto) 72.0 % Lymphocytes (%) (Auto) 14.0 % Monocytes (%) (Auto) 11.0 % Eosinophils (%) (Auto) 2.3 % Basophils (%) (Auto) 0.5 % Neutrophils # (Auto) 4.65 1.4-6.5 K/uL Lymphocytes # (Auto) 0.90 1.2-3.4 K/uL Monocytes # (Auto) 0.71 0.11-0.59 K/uL Eosinophils # (Auto) 0.15 0-0.5 K/uL Basophils # (Auto) 0.03 0-0.2 K/uL RDW Standard Deviation 51.3 36.4-46.3 fL RDW Coefficient of Variation 16.8 11.5-14.5 % Immature Granulocyte % (Auto) 0.2 % Immature Granulocyte # (Auto) 0.01 0.00-0.02 K/uL Schistocytes 1+ Prothrombin Time 31.0 9.0-12.0 SECONDS Prothromb Time International Ratio 2.8 0.9-1.1 Sodium Level 137 136-145 mmol/L Potassium Level 3.5 3.5-5.1 mmol/L Chloride Level 97 98-107 mmol/L Carbon Dioxide Level 32 21-32 mmol/L Anion Gap 8.0 3-11 mmol/L Blood Urea Nitrogen 80 7-18 mg/dl Creatinine 3.00 0.60-1.40 mg/dl Est Creatinine Clear Calc Drug Dose 24.0 ml/min Estimated GFR () 21.7 Estimated GFR (Non- 18.8 BUN/Creatinine Ratio 26.6 10-20 Random Glucose 109 70-99 mg/dl Calcium Level 9.5 8.5-10.1 mg/dl Total Bilirubin 1.8 0.2-1 mg/dl Direct Bilirubin 0.7 0-0.2 mg/dl Aspartate Amino Transf (AST/SGOT) 30 15-37 U/L Alanine Aminotransferase (ALT/SGPT) 24 12-78 U/L Alkaline Phosphatase 133 45-117 U/L Troponin I 0.040 0-0.045 ng/ml Pro-B-Type Natriuretic Peptide 2119 0-1800 pg/ml Total Protein 6.6 6.4-8.2 gm/dl Albumin 3.1 3.4-5.0 gm/dl Diagnostic Radiology Reviewed the following studies and agree with interpretation as follows: Patient Name: NICK RUSSELL Unit Number: [id number] Dictated: 01/27/171611 Transcribed: 01/27/171611 LUDIVINA Printed Date/Time: [~ rep prt dt]/[~ rep prt tm] [~ rep ct labl] - [~ rep ct ivnm] [facility] [place] [address] Dictated: 01/27/171611 Transcribed: 01/27/171611 JRB Printed Date/Time: [~ rep prt dt]/[~ rep prt tm] [~ rep ct labl] - [~ rep ct ivnm] Patient: NICK RUSSELL Address1: [address] [place] [address] Rec: [id number] Address2: [place] [address] Acct ID: [id number] [facility] Zip: [place] [address] Date: 1935 Sex: M Room/Bed: Ref Phy: Isidro Samaniego M.D. SC: JENNIE Att Phy: Report #: [id number] [place] Phy: Rafita Arguello M.D. Test: CXR1P Admit Phy: Acting Teacher: SHITAL Interpreting Phy: Adithya Brice D.O. Diagnosis: FLUID RETENTION, SOB Ordering Phy: Santiago Beverly M.D. Service Date: 01/27/17 Admit Date: 01/27/17 MNE: [id number] CONF: DICTATED BY: Adithya Brice D.O.]] CC: Isidro Samaniego M.D. Cross, Roderick E., M.D. Guillard, Paul, M.D. Endcc: [~ rep ct add3]] CHEST ONE VIEW PORTABLE HISTORY: 81 years-old Male CHEST PAIN COMPARISON: Portable chest radiograph 12/24/2016 TECHNIQUE: Portable upright AP view of the chest FINDINGS: Cardiac silhouette is again markedly enlarged. Prior median sternotomy. There is atherosclerosis of the aorta. Left subclavian pacer device is noted with single lead intact. There is no pneumothorax, pleural effusion, focal airspace consolidation or overt pulmonary edema. There is improved aeration of the right lung base from comparison. The bones are mildly demineralized appear grossly intact with degenerative changes present throughout the spine and shoulders. IMPRESSION: Cardiomegaly without acute cardiopulmonary process. The above report was generated using voice recognition software. It may contain grammatical, syntax or spelling errors. Electronically signed by: Mak Brice M.D. 01/27/2017 4:14 PM Dictated Date/Time: 01/27/2017 4:12 PM The status of this report is Signed. Draft = Not yet reviewed or approved by Radiologist. Signed = Reviewed and approved by Radiologist. <AttendingPhy></AttendingPhy> <FamilyPhy>Isidro Samaniego M.D.</FamilyPhy> < PrimaryPhy>Rafita Arguello M.D.</PrimaryPhy> <UnitNumber>[id number]</UnitNumber> <VisitNumber>[id number]</VisitNumber> <PatientName>NICK RUSSELL</PatientName> <DateOfBirth>1935</DateOfBirth> <Location>[facility]</Location> <ServiceDate></ServiceDate> <MNE>ESINDI</MNE> <OrderingPhy>Santiago Beverly M.D.</ OrderingPhy> <OrderingPhyMNE>f rep ord dr engle</OrderingPhyMNE> <DictatingPhyMNE> f rep dict dr engle</DictatingPhyMNE> <CCListMNE>f rep ct kadie</CCListMNE> < AdmittingPhyMNE>f pt admit dr egnle</AdmittingPhyMNE> <AttendingPhyMNE>f pt attend dr engle</AttendingPhyMNE> <ConsultingPhyMNE>f pt consult dr engle</ConsultingPhyMNE> <FamilyPhyMNE>f pt fam dr engle</FamilyPhyMNE> <OtherPhyMNE>f pt other dr engle</OtherPhyMNE> < PrimaryPhyMNE>f pt prim care dr engle</PrimaryPhyMNE> <ReferringPhyMNE>f pt referring dr engle</ReferringPhyMNE> EKG Reviewed EKG and agree with interpretation as follows: 74 bpm, ventricular paced rhythm with occasional AV dual paced complexes and occasional PVCs Impression Assessment and Plan 81 y/o male with a history of diastolic CHF, CAD s/p CABG x1, HTN, HLD, mechanical AVR, h/o a-fib, sick sinus syndrome, s/p pacemaker, CKD stage III, h/ o prostate cancer s/p radiation, and h/o colon cancer s/p partial colectomy who presented to the ED on 01/27 with worsening shortness of breath, weight gain, and swelling. Pt hypotensive on arrival with BP of 98/68, otherwise VSS and afebrile. CXR did not show overt pulmonary edema. EKG shows no ischemic changes. Troponin negative. Hgb 8.5. Creatinine elevated above baseline at 3.00. BNP elevated at 2119. Acute on chronic diastolic CHF, anasarca -Admit to telemetry -Last echo September 2016 showed LVEF of 65-70%, severe dilation of left atrium, and no wall motion abnormalities -Albumin low at 3.1 -Albumin 25% with Lasix 40 mg IV x 1 -Lasix 40 mg IV BID17 -Hold home Lasix and metolazone -Daily weights, low sodium diet -Strict I's & O's SUPRIYA on CKD stage III--baseline creatinine 1.5 -1.8 -Creatinine 3.00 on admission -Hold metolazone and telmisartan -Lasix as above due to significant fluid overload, but monitor renal function carefully Acute on chronic anemia--likely dilutional from fluid overload, pt denies any bernard bleeding -Baseline hemoglobin around 11 -Hgb 8.5 on admission -Recheck at 2200 -Continue to monitor CAD s/p CABG, HTN--stable. Pt hypotensive on arrival but repeat BP improved, WNL -Hold telmisartan due to SPURIYA -Continue Imdur 30 mg PO qd and ASA Mechanical AVR -INR therapeutic at 2.8 on admission -Continue warfarin 2.5 mg PO 4x/week and 4 mg PO 3x/week -Continue to monitor PT/INR DVT prophylaxis -Warfarin therapeutic -SCDs Code Status -Level III, FULL NO MECHANICAL VENTILATION Attending Addendum: I have physically seen and examined this patient, have directed the physician assistants medical activities, and agree with the H&P as noted above with the following exceptions as noted. The patient is awake, alert and oriented 3, normocephalic and atraumatic, grossly with anasarca, lying in bed and in no acute distress. HEENT--PERRL, EOMI, mucous membranes and oropharynx dry. Neck--supple, no JVD or bruits, thyroid normal, trachea midline, no adenopathy. Heart--normal S1 and S2, no extra beats, no murmurs, rubs or gallops. Lungs--decreased breath sounds throughout, few crackles left base, no respiratory distress, no accessory muscle use. Abdomen--normal bowel sounds and soft, nontender and nondistended, no hernias or masses, no organomegaly. Extremities--no cyanosis, clubbing. There is bilaterally pretibial 4+ pitting edema extending to abdomen. Dermatologic--normal skin turgor, normal color, warm and dry, no abnormal lymph nodes, no rash. Neurologic--cranial nerves II through XII grossly intact. Rheumatologic--limited range of motion due to fluid retention. Psychiatric--normal affect. Assessment and Plan: 1. Acute on chronic diastolic CHF/anasarca/acute on chronic kidney disease/CAD/ status post CABG/hypertension/mechanical AVR-- The patient will be admitted to telemetry for serial cardiac enzymes, cardiac rhythm monitoring and a 2-D echocardiogram with Dopplers. Albumin 25 g with Lasix 40 mg IV 1 tonight. Lasix 40 mg IV twice a day starting tomorrow. Hold metolazone and telmisartan. Continue Imdur 30 mg by mouth daily. Continue aspirin 81 mg by mouth daily. Continue current dosing of warfarin. Hemoglobin 8.5 upon admission, with no signs of active bleeding, likely a function of worsening kidney disease. Follow serial CBC with differential, BMP, magnesium and PT/INR. Level of Care Telemetry Advanced Directives Existing Advance Directive: Yes Existing Living Will: Yes Existing Power of Sales Process Manager: Yes Resuscitation Status [facility] Prophylaxis VTE Risk Assessment Done? Y/N: Yes Risk Level: Moderate Given or contraindicated: Warfarin (Coumadin), SCD's
[2017-01-27 18:45] VITALS: BP 109/68; PULSE 83; TEMP 36.4; O2SAT 98; BMI 31.1
[2017-01-27] MEDS ORDERED: ALBUMIN 25% 50 ML with FUROSEMIDE INJ 40 MG IV ONE ×2 (19:30)
[2017-01-27 22:26] LABS: HEMATOCRIT 25.7 % (42-52)
[2017-01-28] VITALS (9 sets, daily range): BP systolic 95–114; BP diastolic 56–68; PULSE 59–79; TEMP 36.5–37; O2SAT 92–98; Ht 180.3 cm; Wt 95.8 kg
[2017-01-28 06:20] LABS: INR 2.5 (0.9-1.1)
[2017-01-28 06:38] LABS: HEMATOCRIT 24.1 % (42-52); MEAN CELL VOLUME 82.8 fL (80-100); MEAN CORPUSCULAR HEMOGLOBIN 27.8 pg (25-34); MEAN CORPUSCULAR HGB CONC 33.6 g/dl (32-36); MEAN PLATELET VOLUME 9.7 fL (7.4-10.4); PLATELET COUNT 212 K/uL (130-400); RED BLOOD COUNT 2.91 M/uL (4.7-6.1); WHITE BLOOD COUNT 6.57 K/uL (4.8-10.8)
[2017-01-28 06:42] LABS: BUN/CREATININE RATIO 27.9 (10-20); CALCIUM 9.2 mg/dl (8.5-10.1); CREATININE 2.9 mg/dl (0.60-1.40); POTASSIUM 3.7 mmol/L (3.5-5.1)
[2017-01-28] MEDS: ASCORBIC ACID 500 MG TAB PO SCH (07:57)
[2017-01-28] MEDS: FUROSEMIDE INJ 40 MG in SYRINGE 0 ML IV SCH ×2 (07:57→18:32)
[2017-01-28] MEDS: ISOSORBIDE MONONITRATE 30 MG TABCR PO SCH (07:57)
[2017-01-28] MEDS: CHOLECALCIFEROL 400 INTER.UNIT TAB PO SCH (07:58)
--- NOTE | 2017-01-28 10:18 | Hospitalist Progress Note ---
Hospitalist Progress Note Date of Service Jan 28, 2017. Subjective Pt evaluation today including: conversation w/ patient, physical exam, chart review, lab review, review of inpatient medication list Pain: None PO Intake: Tolerating PO diet Voiding: no voiding problems Patient reports feeling better. He states that he still feels somewhat short of breath but that this is improved from yesterday. He still complains of dyspnea on exertion and a chronic non-productive cough. He states he has not had any trouble urinating. The patient denies fevers, chills, sweats, chest pain, palpitations, claudication, wheezing, nausea, vomiting, abdominal pain, dysuria, hematuria, urinary retention, paralysis, weakness, numbness and tingling. Additional Comments: See HPI for pertinent positives and negatives. All other systems reviewed and negative. Objective Vital Signs Date Time Temp Pulse Resp B/P (MAP) Pulse Ox O2 Delivery O2 Flow Rate FiO2 01/28/17 07:34 36.5 70 19 106/67 (80) 98 Room Air 01/28/17 04:37 37.0 59 18 96/58 (71) 98 Room Air 01/28/17 04:00 Room Air 01/28/17 00:11 36.6 75 16 97/62 (74) 95 Room Air 01/28/17 00:00 Room Air 01/27/17 18:45 36.4 83 20 109/68 98 Room Air 01/27/17 17:49 74 18 116/65 98 Room Air 01/27/17 15:49 99 Room Air 01/27/17 15:46 71 01/27/17 15:18 98 Room Air 01/27/17 15:12 36.3 88 20 98/68 97 Physical Exam Notes: General appearance: +Obese. Well-developed, well-nourished, no apparent distress Head: Normocephalic, atraumatic Eyes: Normal inspection, PERRL, EOMI ENT: Normal ENT inspection, hearing grossly normal, pharynx normal Neck: Supple, no JVD, trachea midline Respiratory/Chest: +Diminished breath sounds in bases bilaterally. No respiratory distress Cardiovascular: Regular rate & rhythm, no gallop, no murmur Abdomen/GI: Normal bowel sounds, non-tender, soft Extremities/Musculoskeletal: +4+ pitting edema in lower extremities bilaterally. Pitting extends up legs to the abdomen. Unable to palpate pedal pulses due to edema. Normal inspection, no calf tenderness Neurological/Psych: Alert, normal mood/affect, oriented x 3 Skin: Normal color, warm/dry, no rash Laboratory Results Last 24 Hours Test 01/27/17 16:00 01/27/17 22:05 01/28/17 05:49 White Blood Count 6.45 K/uL 6.57 K/uL Red Blood Count 2.99 M/uL 2.91 M/uL Hemoglobin 8.5 g/dL 8.5 g/dL 8.1 g/dL Hematocrit 24.9 % 25.7 % 24.1 % Mean Corpuscular Volume 83.3 fL 82.8 fL Mean Corpuscular Hemoglobin 28.4 pg 27.8 pg Mean Corpuscular Hemoglobin Concent 34.1 g/dl 33.6 g/dl Platelet Count 227 K/uL 212 K/uL Mean Platelet Volume 9.5 fL 9.7 fL Neutrophils (%) (Auto) 72.0 % Lymphocytes (%) (Auto) 14.0 % Monocytes (%) (Auto) 11.0 % Eosinophils (%) (Auto) 2.3 % Basophils (%) (Auto) 0.5 % Neutrophils # (Auto) 4.65 K/uL Lymphocytes # (Auto) 0.90 K/uL Monocytes # (Auto) 0.71 K/uL Eosinophils # (Auto) 0.15 K/uL Basophils # (Auto) 0.03 K/uL RDW Standard Deviation 51.3 fL 50.6 fL RDW Coefficient of Variation 16.8 % 16.7 % Immature Granulocyte % (Auto) 0.2 % Immature Granulocyte # (Auto) 0.01 K/uL Schistocytes 1+ Prothrombin Time 31.0 SECONDS 28.0 SECONDS Prothromb Time International Ratio 2.8 2.5 Sodium Level 137 mmol/L 138 mmol/L Potassium Level 3.5 mmol/L 3.7 mmol/L Chloride Level 97 mmol/L 98 mmol/L Carbon Dioxide Level 32 mmol/L 33 mmol/L Anion Gap 8.0 mmol/L 7.0 mmol/L Blood Urea Nitrogen 80 mg/dl 81 mg/dl Creatinine 3.00 mg/dl 2.90 mg/dl Est Creatinine Clear Calc Drug Dose 24.0 ml/min 24.6 ml/min Estimated GFR () 21.7 22.6 Estimated GFR (Non- 18.8 19.5 BUN/Creatinine Ratio 26.6 27.9 Random Glucose 109 mg/dl 114 mg/dl Calcium Level 9.5 mg/dl 9.2 mg/dl Total Bilirubin 1.8 mg/dl Direct Bilirubin 0.7 mg/dl Aspartate Amino Transf (AST/SGOT) 30 U/L Alanine Aminotransferase (ALT/SGPT) 24 U/L Alkaline Phosphatase 133 U/L Troponin I 0.040 ng/ml Pro-B-Type Natriuretic Peptide 2119 pg/ml Total Protein 6.6 gm/dl Albumin 3.1 gm/dl Assessment and Plan 81 y/o male with a history of diastolic CHF, CAD s/p CABG x1, HTN, HLD, mechanical AVR, h/o a-fib, sick sinus syndrome, s/p pacemaker, CKD stage III, h/ o prostate cancer s/p radiation, and h/o colon cancer s/p partial colectomy who presented to the ED on 01/27 with worsening shortness of breath, weight gain, and swelling. Pt hypotensive on arrival with BP of 98/68, otherwise VSS and afebrile. CXR did not show overt pulmonary edema. EKG shows no ischemic changes. Troponin negative. Hgb 8.5. Creatinine elevated above baseline at 3.00. BNP elevated at 2119. Acute on chronic diastolic CHF, anasarca--improving. SOB improved -Admit to telemetry. No acute events overnight. Pt in paced rhythm with PVCs, HR in 60s-80s -Last echo September 2016 showed LVEF of 65-70%, severe dilation of left atrium, and no wall motion abnormalities -Albumin low at 3.1 -Albumin 25% with Lasix 40 mg IV x 1 on 01/27 -Lasix 40 mg IV BID17 -Pt 101.8 on standing scale today, had been 103.1 prior to arrival per pt report -Hold home Lasix and metolazone -Daily weights, low sodium diet -Strict I's & O's SUPRIYA on CKD stage III--improving -Baseline creatinine 1.5 -1.8 -Creatinine 3.00 on admission -Hold metolazone and telmisartan -Lasix as above due to significant fluid overload, but monitor renal function carefully -Creatinine 2.9 on 01/28 Acute on chronic anemia--likely dilutional from fluid overload, pt denies any bernard bleeding -Baseline hemoglobin around 11 -Hgb 8.5 on admission -Continue to monitor -Hgb 8.1 on 01/28, recheck at 1200 CAD s/p CABG, HTN--stable. Pt remains hypotensive/low normal -Hold telmisartan due to SUPRIYA -Continue Imdur 30 mg PO qd and ASA Mechanical AVR -INR therapeutic at 2.8 on admission -Continue warfarin 2.5 mg PO 4x/week and 4 mg PO 3x/week -INR 2.5 on 01/28 -Continue to monitor PT/INR DVT prophylaxis -Warfarin therapeutic -SCDs Code Status -Level III, FULL NO MECHANICAL VENTILATION Dispo -Pt from home -municipal services manager consulted, pt 81 years old and lives alone -PT/OT evaluate and treat
[2017-01-28 12:50] LABS: HEMATOCRIT 25.7 % (42-52)
[2017-01-28 13:23] LABS: FERRITIN 19.8 ng/ml (8.0-388.0)
[2017-01-28] MEDS: WARFARIN SOD 2.5 MG TAB PO SCH (18:32)
[2017-01-29 03:45] VITALS: BP 105/71; PULSE 59; TEMP 36.7; O2SAT 93
[2017-01-29 06:23] LABS: HEMATOCRIT 25.4 % (42-52); MEAN CELL VOLUME 82.5 fL (80-100); MEAN CORPUSCULAR HEMOGLOBIN 27.3 pg (25-34); MEAN CORPUSCULAR HGB CONC 33.1 g/dl (32-36); MEAN PLATELET VOLUME 9.5 fL (7.4-10.4); PLATELET COUNT 213 K/uL (130-400); RED BLOOD COUNT 3.08 M/uL (4.7-6.1); WHITE BLOOD COUNT 6.48 K/uL (4.8-10.8)
[2017-01-29 06:29] LABS: INR 2.2 (0.9-1.1); PROTHROMBIN TIME (PATIENT) 24.1 SECONDS (9.0-12.0)
[2017-01-29 06:49] LABS: CALCIUM 9.4 mg/dl (8.5-10.1); CREATININE 2.4 mg/dl (0.60-1.40); POTASSIUM 3.4 mmol/L (3.5-5.1)
[2017-01-29 07:17] LABS: MAGNESIUM 2.5 mg/dl (1.8-2.4); THYROID STIMULATING HORMONE 2.16 uIu/ml (0.300-4.500)
[2017-01-29] MEDS: ASCORBIC ACID 500 MG TAB PO SCH (07:49)
[2017-01-29] MEDS: CHOLECALCIFEROL 400 INTER.UNIT TAB PO SCH (07:49)
[2017-01-29] MEDS: ASPIRIN 81 MG ECTAB PO SCH (07:49)
[2017-01-29] MEDS: ISOSORBIDE MONONITRATE 30 MG TABCR PO SCH (07:49)
[2017-01-29] MEDS: FUROSEMIDE INJ 40 MG in SYRINGE 0 ML IV SCH ×2 (08:33→16:33)
[2017-01-29 08:45] VITALS: BP 116/69; PULSE 62; TEMP 36.4; O2SAT 98
[2017-01-29] MEDS ORDERED: NURSING VERBAL MED ORDER ONE (11:30)
[2017-01-29] MEDS ORDERED: POTASSIUM CHLORIDE 20 MEQ TABCR PO ONE (12:00)
[2017-01-29 12:47] VITALS: BP 101/69; PULSE 99; TEMP 36.4; O2SAT 99
[2017-01-29 15:54] VITALS: BP 113/71; PULSE 63; TEMP 36.7; O2SAT 97
[2017-01-29] MEDS: WARFARIN SOD 4 MG TAB PO SCH (16:34)
[2017-01-29] MEDS ORDERED: METOLAZONE 5 MG TAB PO PRN (17:00)
--- NOTE | 2017-01-29 17:03 | Progress Note ---
Subjective Date of Service: Jan 29, 2017. Subjective Pt evaluation today including: conversation w/ patient, conversation w/ family , chart review, lab review, review of studies, conversation w/ client care consultant, review of inpatient medication list Generally feeling better, however billy lower extremity still has 2-3+ edema Problem List Medical Problems: (1) Acute renal insufficiency Status: Acute (2) Bilateral lower extremity edema Status: Acute (3) Dysuria Status: Acute (4) Neck pain on right side Status: Acute (5) Right shoulder pain Status: Acute (6) Shoulder pain Status: Acute Review of Systems Constitutional: + fatigue, No fever, No chills, No sweats, No weight loss, No weakness, No problem reported Eyes: No worsening of vision, No eye pain, No redness, No discharge, No diplopia ENT: No hearing loss, No unusual epistaxis, No nasal symptoms, No sore throat, No tinnitus, No dental problems, No trouble swallowing Respiratory: No cough, No sputum, No wheezing, No shortness of breath, No dyspnea on exertion, No dyspnea at rest, No hemoptysis Cardiac: + edema, No chest pain, No orthopnea, No PND, No claudication, No palpitations Abdomen: No pain, No nausea, No vomiting, No diarrhea, No constipation Musculoskeletal: No joint pain, No muscle pain, No swelling, No calf pain Male : No dysuria, No urinary frequency, No incontinence, No nocturia more than once/night, No slowing stream, No hematuria Neurologic: No memory loss, No paralysis, No weakness, No numbness/tingling, No vertigo, No balance problems Psychiatric: No depression symptoms, No anhedonism, No anxiety, No insomnia, No substance abuse Heme: No abnormal bleeding/bruising, No clotting problems, No swollen lymph nodes, No night sweats Endo: No fatigue, No excessive thirst, No excessive urination Skin: No rash, No itch, No new/changing skin lesions, No color change, No bleeding Objective Vital Signs Date Time Temp Pulse Resp B/P (MAP) Pulse Ox O2 Delivery O2 Flow Rate FiO2 01/29/17 16:00 Room Air 01/29/17 15:54 36.7 63 18 113/71 (85) 97 Room Air 01/29/17 12:47 36.4 99 20 101/69 (80) 99 Room Air 01/29/17 12:00 Room Air 01/29/17 08:45 36.4 62 16 116/69 (85) 98 Room Air 01/29/17 08:00 Room Air 01/29/17 04:00 Room Air 01/29/17 03:45 36.7 59 18 105/71 (82) 93 Room Air 01/28/17 23:59 95 Room Air 01/28/17 23:32 36.9 65 16 112/68 (83) 95 Room Air 01/28/17 20:00 92 Room Air 01/28/17 19:45 36.5 79 18 103/65 (78) 92 Room Air Physical Exam General Appearance: WD/WN, no apparent distress Eyes: normal inspection, PERRL, EOMI, sclerae normal ENT: normal ENT inspection, hearing grossly normal, pharynx normal Neck: supple, no adenopathy, thyroid normal, no JVD, no carotid bruits, trachea midline Respiratory/Chest: chest non-tender, normal breath sounds, no respiratory distress, no accessory muscle use, + decreased breath sounds Cardiovascular: regular rate, rhythm, no gallop, no JVD, no murmur, + pertinent finding (2-3+ edema in lower extremity) Abdomen: normal bowel sounds, non tender, soft, no organomegaly, no pulsatile mass Extremities: normal range of motion, non-tender, normal inspection, no pedal edema, no calf tenderness, normal capillary refill, pelvis stable 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, no motor/sensory deficits, alert, normal mood/affect, oriented x 3 Skin: normal color, warm/dry, no rash Lymphatic: no adenopathy Laboratory Results Last 24 Hours Test 01/29/17 06:01 White Blood Count 6.48 K/uL Red Blood Count 3.08 M/uL Hemoglobin 8.4 g/dL Hematocrit 25.4 % Mean Corpuscular Volume 82.5 fL Mean Corpuscular Hemoglobin 27.3 pg Mean Corpuscular Hemoglobin Concent 33.1 g/dl RDW Standard Deviation 51.0 fL RDW Coefficient of Variation 16.7 % Platelet Count 213 K/uL Mean Platelet Volume 9.5 fL Prothrombin Time 24.1 SECONDS Prothromb Time International Ratio 2.2 Sodium Level 139 mmol/L Potassium Level 3.4 mmol/L Chloride Level 97 mmol/L Carbon Dioxide Level 34 mmol/L Anion Gap 8.0 mmol/L Blood Urea Nitrogen 77 mg/dl Creatinine 2.40 mg/dl Est Creatinine Clear Calc Drug Dose 29.9 ml/min Estimated GFR () 28.5 Estimated GFR (Non- 24.6 BUN/Creatinine Ratio 32.0 Random Glucose 120 mg/dl Calcium Level 9.4 mg/dl Magnesium Level 2.5 mg/dl Folate > 24.00 ng/mL Thyroid Stimulating Hormone (TSH) 2.160 uIu/ml Assessment and Plan 81 y/o male with admitted from ED on 01/27 with worsening shortness of breath, weight gain, and swelling. Past medical history of diastolic CHF, CAD s/p CABG x1, HTN, HLD, mechanical AVR , h/o a-fib, sick sinus syndrome, s/p pacemaker, CKD stage III, h/o prostate cancer s/p radiation, and h/o colon cancer s/p partial colectomy Per report during admission, he was hypotensive on arrival with BP of 98/68, otherwise VSS and afebrile. CXR did not show overt pulmonary edema. EKG shows no ischemic changes. Troponin negative. Hgb 8.5. Creatinine elevated above baseline at 3.00. BNP elevated at 2119. Acute on chronic diastolic CHF, anasarca--improving. Continue stable and improving Patient reported possible one new medication begin with M caused his significant fluid retention, w'll-defined medication with family, this medicine has been discontinued -Last echo September 2016 showed LVEF of 65-70%, severe dilation of left atrium, and no wall motion abnormalities -Albumin low at 3.1 -Albumin 25% with Lasix 40 mg IV x 1 on 01/27 -Continue Lasix 40 mg IV BID17 - Continue monitor weight -Daily weights, low sodium diet, at water restriction -Strict I's & O's Acute kidney failure on CKD stage III-- Which indicates kidney congestion from CHF , continue improve improving -Baseline creatinine 1.5 -1.8 -Creatinine 3.00 on admission -Hold metolazone and telmisartan -Lasix as above due to significant fluid overload, but monitor renal function carefully -Creatinine 2.4 from 2.9 on 01/28 Acute on chronic anemia--likely dilutional from fluid overload, pt denies any bernard bleeding -Baseline hemoglobin around 11 -Hgb 8.5 on admission -Continue to monitor -Hgb 8.1 on 01/28, recheck at 1200 - Patient is on Coumadin need to rule out GI bleeding, stool Hemoccult order, has ordered iron panel and vitamin B12 and folate acid to follow-up CAD s/p CABG, HTN--stable. Pt remains hypotensive/low normal -Hold telmisartan due to SUPRIYA -Continue Imdur 30 mg PO qd and ASA Mechanical AVR -INR therapeutic at 2.8 on admission -Continue warfarin 2.5 mg PO 4x/week and 4 mg PO 3x/week -INR 2.5 on 01/28, today's 2.2, will follow-up -Continue to monitor PT/INR Code Status -Level III, FULL NO MECHANICAL VENTILATION Discussed patient and son about her condition and care plan, answer all questions Continued [facility] stay due to: multiple IV medications needed Discharge planning: home
[2017-01-29 19:44] VITALS: BP 108/68; PULSE 69; TEMP 36.8; O2SAT 99
[2017-01-29 23:37] VITALS: BP 110/69; PULSE 65; TEMP 36.4; O2SAT 96
[2017-01-30 05:02] VITALS: BP 107/69; PULSE 61; TEMP 36.8; O2SAT 93
[2017-01-30 06:50] LABS: HEMATOCRIT 26.3 % (42-52); MEAN CORPUSCULAR HEMOGLOBIN 27.8 pg (25-34); MEAN CORPUSCULAR HGB CONC 33.5 g/dl (32-36); MEAN PLATELET VOLUME 9.8 fL (7.4-10.4); PLATELET COUNT 217 K/uL (130-400); RED BLOOD COUNT 3.17 M/uL (4.7-6.1); WHITE BLOOD COUNT 7.31 K/uL (4.8-10.8)
[2017-01-30 07:03] LABS: PROTHROMBIN TIME (PATIENT) 21.8 SECONDS (9.0-12.0)
[2017-01-30 07:25] LABS: BUN/CREATININE RATIO 31.9 (10-20); CALCIUM 9.5 mg/dl (8.5-10.1); CREATININE 2.1 mg/dl (0.60-1.40); POTASSIUM 3.4 mmol/L (3.5-5.1)
[2017-01-30 07:42] VITALS: BP 109/70; PULSE 73; TEMP 36.4; O2SAT 96
[2017-01-30] MEDS ORDERED: WARFARIN SOD 1 MG TAB PO ONE (08:00)
[2017-01-30] MEDS: FUROSEMIDE INJ 40 MG in SYRINGE 0 ML IV SCH ×2 (08:09→16:46)
[2017-01-30] MEDS: CALCIUM 600MG + VIT D 400 IU TAB PO SCH (08:10)
[2017-01-30] MEDS: CHOLECALCIFEROL 400 INTER.UNIT TAB PO SCH (08:10)
[2017-01-30] MEDS: ASCORBIC ACID 500 MG TAB PO SCH (08:10)
[2017-01-30] MEDS: ISOSORBIDE MONONITRATE 30 MG TABCR PO SCH (08:10)
[2017-01-30] MEDS ORDERED: WARFARIN TAB 1 MG, WARFARIN TAB 0.5 MG PO ONE (08:45)
[2017-01-30] MEDS ORDERED: NON-FORMULARY MEDICATION (Glucosamine-Chondroitin (Osteo Bi-Flex Regular Str) 1 TAB) PO SCH (09:00)
[2017-01-30] MEDS ORDERED: POTASSIUM CHLORIDE 10 MEQ TABCR PO STA (09:23)
--- NOTE | 2017-01-30 09:32 | Progress Note ---
Subjective Date of Service: Jan 30, 2017. Subjective Pt evaluation today including: conversation w/ patient, conversation w/ family , physical exam, chart review, lab review, review of studies, conversation w/ client experience consultant, review of inpatient medication list Continue to have good urine output, generally feeling good, lower extremity swelling continue improving, no other complaint Problem List Medical Problems: (1) Acute renal insufficiency Status: Acute (2) Bilateral lower extremity edema Status: Acute (3) Dysuria Status: Acute (4) Neck pain on right side Status: Acute (5) Right shoulder pain Status: Acute (6) Shoulder pain Status: Acute Review of Systems Constitutional: No fever, No chills, No sweats, No weight loss, No weakness, No fatigue, No problem reported Eyes: No worsening of vision, No eye pain, No redness, No discharge, No diplopia ENT: No hearing loss, No unusual epistaxis, No nasal symptoms, No sore throat, No tinnitus, No dental problems, No trouble swallowing Respiratory: No cough, No sputum, No wheezing, No shortness of breath, No dyspnea on exertion, No dyspnea at rest, No hemoptysis Cardiac: + edema (2-3+, is much better), No chest pain, No orthopnea, No PND, No claudication, No palpitations Abdomen: No pain, No nausea, No vomiting, No diarrhea, No constipation Musculoskeletal: No joint pain, No muscle pain, No swelling, No calf pain Male : No dysuria, No urinary frequency, No incontinence, No nocturia more than once/night, No slowing stream, No hematuria Neurologic: No memory loss, No paralysis, No weakness, No numbness/tingling, No vertigo, No balance problems Psychiatric: No depression symptoms, No anhedonism, No anxiety, No insomnia, No substance abuse Heme: No abnormal bleeding/bruising, No clotting problems, No swollen lymph nodes, No night sweats Endo: No fatigue, No excessive thirst, No excessive urination Skin: No rash, No itch, No new/changing skin lesions, No color change, No bleeding Objective Vital Signs Date Time Temp Pulse Resp B/P (MAP) Pulse Ox O2 Delivery O2 Flow Rate FiO2 01/30/17 07:42 36.4 73 16 109/70 (83) 96 Room Air 01/30/17 05:02 36.8 61 16 107/69 (82) 93 Room Air 01/30/17 04:00 Room Air 01/29/17 23:59 Room Air 01/29/17 23:37 36.4 65 16 110/69 (83) 96 Room Air 01/29/17 20:00 Room Air 01/29/17 19:44 36.8 69 18 108/68 (81) 99 Room Air 01/29/17 16:00 Room Air 01/29/17 15:54 36.7 63 18 113/71 (85) 97 Room Air 01/29/17 12:47 36.4 99 20 101/69 (80) 99 Room Air 01/29/17 12:00 Room Air Physical Exam General Appearance: WD/WN, no apparent distress, + pertinent finding (pleasant conversational) Eyes: normal inspection, PERRL, EOMI, sclerae normal ENT: normal ENT inspection, hearing grossly normal, pharynx normal Neck: supple, no adenopathy, thyroid normal, no JVD, no carotid bruits, trachea midline Respiratory/Chest: chest non-tender, normal breath sounds, no respiratory distress, no accessory muscle use, + decreased breath sounds Cardiovascular: regular rate, rhythm, no gallop, no JVD, no murmur, + pertinent finding (2-3+ edema is better than yesterday) Abdomen: normal bowel sounds, non tender, soft, no organomegaly, no pulsatile mass Extremities: normal range of motion, non-tender, normal inspection, no pedal edema, no calf tenderness, normal capillary refill, pelvis stable 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, no motor/sensory deficits, alert, normal mood/affect, oriented x 3 Skin: normal color, warm/dry, no rash Lymphatic: no adenopathy Laboratory Results Last 24 Hours Test 01/30/17 06:01 White Blood Count 7.31 K/uL Red Blood Count 3.17 M/uL Hemoglobin 8.8 g/dL Hematocrit 26.3 % Mean Corpuscular Volume 83.0 fL Mean Corpuscular Hemoglobin 27.8 pg Mean Corpuscular Hemoglobin Concent 33.5 g/dl RDW Standard Deviation 50.8 fL RDW Coefficient of Variation 16.7 % Platelet Count 217 K/uL Mean Platelet Volume 9.8 fL Prothrombin Time 21.8 SECONDS Prothromb Time International Ratio 2.0 Sodium Level 141 mmol/L Potassium Level 3.4 mmol/L Chloride Level 99 mmol/L Carbon Dioxide Level 33 mmol/L Anion Gap 9.0 mmol/L Blood Urea Nitrogen 67 mg/dl Creatinine 2.10 mg/dl Est Creatinine Clear Calc Drug Dose 34.2 ml/min Estimated GFR () 33.4 Estimated GFR (Non- 28.9 BUN/Creatinine Ratio 31.9 Random Glucose 113 mg/dl Calcium Level 9.5 mg/dl Assessment and Plan 81 y/o male with admitted from ED on 01/27 with worsening shortness of breath, weight gain, and swelling. Past medical history of diastolic CHF, CAD s/p CABG x1, HTN, HLD, mechanical AVR , h/o a-fib, sick sinus syndrome, s/p pacemaker, CKD stage III, h/o prostate cancer s/p radiation, and h/o colon cancer s/p partial colectomy Per report during admission, he was hypotensive on arrival with BP of 98/68, otherwise VSS and afebrile. CXR did not show overt pulmonary edema. EKG shows no ischemic changes. Troponin negative. Hgb 8.5. Creatinine elevated above baseline at 3.00. BNP elevated at 2119. Acute on chronic diastolic CHF, anasarca--improving. Continue stable and improving, fair negative output, and continue improving renal function Patient reported possible one new medication begin with M caused his significant fluid retention, w'll-defined medication with family, this medicine has been discontinued -Last echo September 2016 showed LVEF of 65-70%, severe dilation of left atrium, and no wall motion abnormalities -Albumin low at 3.1 -Albumin 25% with Lasix 40 mg IV x 1 on 01/27 -Continue Lasix 40 mg IV BID17 - Continue monitor weight -Daily weights, low sodium diet, at water restriction 1800 daily -Strict I's & O's, Acute kidney failure on CKD stage III-- Which indicates kidney congestion from CHF , continue improve -Baseline creatinine 1.5 -1.8 -Creatinine 3.00 on admission, today's 2.1 - Continue Hold metolazone and telmisartan, however may restart tomorrow -Lasix as above due to significant fluid overload, but monitor renal function carefully Acute on chronic anemia--likely dilutional from fluid overload, pt denies any bernard bleeding -Baseline hemoglobin around 11 -Hgb 8.5 on admission, today's 8.8 -Continue to monitor - Patient is on Coumadin need to rule out GI bleeding, stool Hemoccult order results is pending , also has ordered iron panel and vitamin B12 and folate acid , which were normal CAD s/p CABG, HTN--stable. Pt remains hypotensive/low normal -Hold telmisartan due to SUPRIYA, will restart soon -Continue Imdur 30 mg PO qd and ASA Mechanical AVR -INR therapeutic at 2.8 on admission -Continue warfarin 2.5 mg PO 4x/week and 4 mg PO 3x/week -INR 2.5 on 01/28, today's 2.0, and additional dose 1.5 mg Coumadin today , will follow-up - Because of patient's complex cardiac condition, has requested cardiology consult Code Status -Level III, FULL NO MECHANICAL VENTILATION Discussed patient and son about her condition and care plan, answer all questions Continued [facility] stay due to: multiple IV medications needed Discharge planning: home
[2017-01-30 12:10] VITALS: BP 110/67; PULSE 66; TEMP 36.3; O2SAT 96
[2017-01-30 16:16] VITALS: BP 123/76; PULSE 96; TEMP 36.4; O2SAT 97
--- NOTE | 2017-01-30 16:40 | CARDIOLOGY CONSULTATION ---
DATE OF CONSULTATION: 01/30/2017 PERTINENT HISTORY: Mr. Bradley is an 81-year-old white male admitted on January 27 with acute on chronic diastolic congestive heart failure. This consultation was ordered to assist in his management. The patient was in his usual state of health until approximately 1 month prior to his presentation. He was started on alfuzosin by his urologist and he immediately noted weight gain and an inability to urinate. The patient took a total of 3 doses of that medication, but continued to have progressive exertional dyspnea, weight gain, and an increase in his usual lower extremity edema. The patient does follow daily weights at home and notes his typical "dry weight" to be 200 pounds. The patient gained up to 227 pounds, then presented to the hospital for further care. On arrival here, the patient was found to have acute on chronic renal failure with a creatinine of 3.0 and anemia with a hemoglobin of 8.5. The patient was started on intravenous diuretics and has lost 3.5 kilograms since admission. The patient has a longstanding cardiac history. He underwent placement of a [employer] Brayden's mechanical aortic valve (23 mm) in 1991. At the same time he had a single-vessel bypass with a saphenous vein graft to an obtuse marginal branch. The patient does have a history of rheumatic heart disease and has moderate mitral stenosis with significant pulmonary hypertension, moderate to severe tricuspid regurgitation, and evidence of cor pulmonale. He chronically has lower extremity edema. The patient has a history of sick sinus syndrome and is now in permanent atrial fibrillation. He had a VVIR pacemaker placed in April 2009 for the tachycardia/bradycardia syndrome. He follows up with Dr. Mcdermott. The patient has noted some improvement in his lower extremity edema and exertional dyspnea since presenting to the hospital. Currently, he is resting comfortably in bed and without complaints. PAST MEDICAL HISTORY: 1. Coronary artery disease. 2. CABG x1 -- SVG to the OM -- 1991. 3. [employer] 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 4. Hypertension. 5. Statin intolerant hypercholesterolemia. 6. Chronic diastolic congestive heart failure. 7. Cor pulmonale. 8. Severe pulmonary hypertension. 9. Moderate to severe tricuspid regurgitation. 10. Moderate mitral stenosis. 11. Chronic lower extremity edema. 12. Permanent atrial fibrillation. 13. Tachycardia/bradycardia syndrome. 14. VVIR pacemaker - April 2009. 15. Chronic renal failure. 16. Diabetes mellitus. 17. Vitamin D deficiency. 18. 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 19. Right hemicolectomy -- February 2013. 20. Prostate carcinoma -- 1997 -- XRT and hormone therapy. 21. Tonsillectomy. 22. Appendectomy. MEDICATIONS: 1. Lasix 40 mg IV b.i.d. 2. Metolazone 5 mg daily p.r.n. edema. 3. Micardis 40 mg daily. 4. Imdur 30 mg per day. 5. Aspirin 81 mg per day. 6. Warfarin 4 mg Tuesday, , Tuesday, 2.5 mg Tuesday, Tuesday, Tuesday, Tuesday. 7. Vitamin C 500 mg daily. 8. Vitamin D 400 international units daily. ADVERSE DRUG REACTIONS: 1. SUSAN INHIBITOR. 2. STATINS. 3. ALFUZOSIN. SOCIAL HISTORY: The patient is a and lives alone. Stopped tobacco use in 1966. Alcohol use is social. FAMILY HISTORY: Noncontributory. REVIEW OF SYSTEMS: A 10-point review of systems was negative except for that described above. PHYSICAL EXAMINATION: GENERAL: This is a well-developed, well-nourished, white male lying supine in bed without complaints. VITAL SIGNS: Blood pressure is 110/70 with a regular pulse of 70. Respiratory rate is 16. The patient is afebrile at 36.4 degrees Celsius. Saturation is 96% on room air. HEENT: Negative. NECK: Supple with full carotid upstrokes. No obvious bruits. Jugular venous pressure is elevated to the angle of the jaw at 90 degrees. There is no thyromegaly. CARDIOVASCULAR: Reveals a regular rhythm with a 2/6 crescendo-decrescendo systolic murmur heard loudest at the bases. [place] mechanical valve sounds noted. No diastolic murmurs. LUNGS: Clear without rales, rhonchi, or wheezes. ABDOMEN: Obese without bruits. BACK: Notes pitting sacral edema. EXTREMITIES: Reveal intact radial artery pulses bilaterally. There is 3-4+ pitting edema of the lower extremities up to the hip bilaterally. DATA: CBC notes hemoglobin of 8.8, hematocrit 36.3, white count 7.3, platelet count 217,000. Electrolytes note a sodium of 141, potassium 3.4, chloride 99, bicarb 33, BUN 67, creatinine 2.1, glucose 113. Magnesium level is normal at 2.5. TSH is normal at 2.16. BNP is mildly elevated at 2119. INR is 2.0. Troponin I level is negative at 0.04. EKG notes ventricular pacing. Chest x-ray notes cardiomegaly but no failure. Echocardiogram performed during hospitalization in September of this year notes normal left ventricular systolic function with an ejection fraction of 65-70%. There is moderate mitral stenosis and severely dilated left atrium. There are elevated velocities across the prosthetic aortic valve and evidence of a dilated IVC. IMPRESSION: Mr. Bradley is admitted with acute on chronic diastolic congestive heart failure. As an outpatient and according to his report, his weight increased from 200 up to 227 pounds. We have discussed the continued use of daily weights and sliding scale diuretics when he is discharged. For now, agree with intravenous furosemide twice daily. The patient does have chronic lower extremity edema from his cor pulmonale and significant pulmonary hypertension. The patient has elevated velocities across his aortic valve prosthesis. This will be followed closely as an outpatient by Dr. Samaniego. PLAN: 1. Agree with intravenous diuretics twice daily. 2. Continue to follow renal function closely as you are. 3. Further recommendations depending on his clinical course.
[2017-01-30] MEDS: WARFARIN SOD 2.5 MG TAB PO SCH (16:46)
[2017-01-30 19:32] VITALS: BP 126/75; PULSE 63; TEMP 36.6; O2SAT 97
[2017-01-30] MEDS: TELMISARTAN 40 MG TAB PO SCH (20:36)
[2017-01-31] VITALS: BP 110/66; PULSE 70; TEMP 37.1; O2SAT 96
[2017-01-31 03:53] VITALS: BP 119/71; PULSE 76; TEMP 37; O2SAT 97
[2017-01-31 07:00] LABS: BASO % 0.6 %; BASO ABS # 0.04 K/uL (0-0.2); EOS % 3.6 %; HEMATOCRIT 24.9 % (42-52); IG% 0.3 %; LYMPH % 11.3 %; LYMPH ABS # 0.76 K/uL (1.2-3.4); MEAN CELL VOLUME 83.3 fL (80-100); MEAN CORPUSCULAR HEMOGLOBIN 26.8 pg (25-34); MEAN CORPUSCULAR HGB CONC 32.1 g/dl (32-36); MEAN PLATELET VOLUME 9.8 fL (7.4-10.4); NEUT % 70.2 %; PLATELET COUNT 208 K/uL (130-400); RED BLOOD COUNT 2.99 M/uL (4.7-6.1); WHITE BLOOD COUNT 6.72 K/uL (4.8-10.8)
[2017-01-31 07:36] LABS: BUN/CREATININE RATIO 29.8 (10-20); CALCIUM 8.9 mg/dl (8.5-10.1); MAGNESIUM 2.4 mg/dl (1.8-2.4); POTASSIUM 3.3 mmol/L (3.5-5.1)
[2017-01-31] MEDS: CALCIUM 600MG + VIT D 400 IU TAB PO SCH (07:55)
[2017-01-31] MEDS: [UNRECOGNIZED DRUG - OTHER] PO SCH (07:55)
[2017-01-31] MEDS: ASCORBIC ACID 500 MG TAB PO SCH (07:56)
[2017-01-31] MEDS: METOLAZONE 5 MG TAB PO SCH (07:56)
[2017-01-31] MEDS: ASPIRIN 81 MG ECTAB PO SCH (07:56)
[2017-01-31] MEDS: ISOSORBIDE MONONITRATE 30 MG TABCR PO SCH (07:57)
[2017-01-31] MEDS: CHOLECALCIFEROL 400 INTER.UNIT TAB PO SCH (07:57)
[2017-01-31 08:00] VITALS: BP 111/65; PULSE 98; TEMP 36.6; O2SAT 97
[2017-01-31 08:03] LABS: COMPLETE YES; POIKILOCYTOSIS PRESENT; SCHISTOCYTES OCCASIONAL; TARGET CELLS 1+
[2017-01-31] MEDS: FUROSEMIDE INJ 40 MG in SYRINGE 0 ML IV SCH ×2 (09:26→15:53)
[2017-01-31] MEDS: POTASSIUM CHLORIDE 20 MEQ TABCR PO SCH ×2 (10:11→15:57)
--- NOTE | 2017-01-31 10:41 | CARDIOLOGY PROGRESS NOTE ---
DATE: 01/31/2017 SUBJECTIVE: Mr. Bradley is resting comfortably in the bedside chair without complaints of chest pain or dyspnea. He was able to sleep last evening without difficulty. OBJECTIVE: VITAL SIGNS: Blood pressure 110/65 with irregular pulse of 80. Respiratory rate is 20 and the patient is afebrile at 36.6 degrees Celsius. Saturation is 97% on room air. NECK: Supple with full carotid upstrokes. No obvious bruits. Jugular venous pressure is 8 cm of water at 90 degrees. There is no thyromegaly. CARDIOVASCULAR: Reveals a regular rhythm with a 2/6 crescendo-decrescendo systolic murmur heard loudest at the base. [place] mechanical valve sounds noted. No diastolic murmurs. LUNGS: Clear without rales, rhonchi, or wheezes. ABDOMEN: Obese without bruits. EXTREMITIES: Reveal intact radial artery pulses bilaterally. 1-2+ pitting edema to the thighs bilaterally. LABORATORY DATA: CBC notes a hemoglobin of 8.0, hematocrit 24.9, white count 6.7, and platelet count 208,000. Electrolytes note a sodium of 142, potassium 3.3, chloride 102, bicarbonate 34, BUN 60, creatinine 2.0, and glucose 116. bus driver/monitor notes appropriate pacing. IMPRESSION AND PLAN: 1. Acute on chronic diastolic congestive heart failure - the patient is diuresing well. Metolazone added before the morning Lasix dose today. That should improve the diuresis. 2. Coronary artery disease -- status post coronary artery bypass grafting x1 in [address]. 3[address] Brayden's mechanical aortic valve replacement -- performed in 1991. Velocities across this prosthesis elevated at the time of an echocardiogram performed in September of this year. 4. Moderate mitral stenosis. 5. Cor pulmonale - with severe pulmonary hypertension. 6. Tachycardia/bradycardia syndrome -- now in permanent atrial fibrillation. VVI pacemaker placed in April 2009. 7. Chronic lower extremity edema. 8. Chronic renal failure. 9. Diabetes mellitus. 10. Anemia -- more pronounced then noted previously. There could be a component of hemodilution.
[2017-01-31 11:48] VITALS: BP 117/72; PULSE 73; TEMP 36.6; O2SAT 96
--- NOTE | 2017-01-31 12:48 | Progress Note ---
Subjective Date of Service: Jan 31, 2017. Subjective Pt evaluation today including: conversation w/ patient, physical exam, lab review, review of inpatient medication list Pain: no pain PO Intake: adequate Voiding: no voiding problems patient feeling better but still with a lot of swelling in legs he confirmed that he did indeed gain 27 pounds at home responded well to Zaroxolyn this AM, urinating a lot more reviewed labs and vitals discussed transfer to medical floor, will take time of discharge day by day Problem List Medical Problems: (1) Acute renal insufficiency Status: Acute (2) Bilateral lower extremity edema Status: Acute (3) Dysuria Status: Acute (4) Neck pain on right side Status: Acute (5) Right shoulder pain Status: Acute (6) Shoulder pain Status: Acute Review of Systems Constitutional: + weakness Respiratory: + dyspnea on exertion Cardiac: + edema All Other Systems: Reviewed and Negative Medications Current Inpatient Medications Medications (Trade) Dose Ordered Sig/Juanjo Route Start Time Stop Time Status Last Admin Dose Admin Acetaminophen (Tylenol Tab) 650 mg Q4H PRN PO 01/27/17 17:15 02/26/17 17:14 Al Hydrox/Mg Hydrox/Simethicone (Maalox Max Susp) 15 ml Q4H PRN PO 01/27/17 17:15 02/26/17 17:14 Magnesium Hydroxide (Milk Of Magnesia Susp) 30 ml Q12H PRN PO 01/27/17 17:15 02/26/17 17:14 Ondansetron HCl (Zofran Inj) 4 mg Q6H PRN IV 01/27/17 17:15 02/26/17 17:14 Polyethylene (Miralax Powder Packet) 17 gm DAILY PRN PO 01/27/17 17:15 02/26/17 17:14 Furosemide 40 mg/ Syringe 4 ml @ 4 mls/min BID17 IV 01/28/17 09:00 02/27/17 08:59 01/31/17 09:26 4 MLS/MIN Ascorbic Acid (Vitamin C Tab) 500 mg QAM PO 01/28/17 09:00 02/27/17 08:59 01/31/17 07:56 500 MG Aspirin (Ecotrin Tab) 81 mg Q2D@0900 PO 01/29/17 09:00 02/28/17 08:59 01/31/17 07:56 81 MG Cholecalciferol (Vitamin D Tab) 400 inter.unit QAM PO 01/28/17 09:00 02/27/17 08:59 01/31/17 07:57 400 INTER.UNIT Isosorbide Mononitrate (Imdur Ext Rel Tab) 30 mg QAM PO 01/28/17 09:00 02/27/17 08:59 01/31/17 07:57 30 MG Meclizine HCl (Antivert Tab) 25 mg TID PRN PO 01/27/17 17:30 02/26/17 17:29 Nitroglycerin (Nitrostat Tab) 0.4 mg PRN PRN UT 01/27/17 17:30 02/26/17 17:29 Warfarin Sodium (Coumadin Tab) 2.5 mg SuMoWeFr@1600 PO 01/28/17 16:00 02/27/17 15:59 01/30/17 16:46 2.5 MG Warfarin Sodium (Coumadin Tab) 4 mg TuThSa@1600 PO 01/29/17 16:00 02/28/17 15:59 01/29/17 16:34 4 MG Calcium/Vitamin D (Caltrate Plus Tab) 1 tab QAM PO 01/30/17 09:00 03/01/17 08:59 01/31/17 07:55 1 TAB Telmisartan (Micardis Tab) 40 mg QPM PO 01/30/17 21:00 03/01/17 20:59 01/30/17 20:36 40 MG Metolazone (Zaroxolyn Tab) 5 mg DAILY@0830 PO 01/31/17 08:30 03/02/17 08:29 01/31/17 07:56 5 MG Potassium Chloride (Klor-Con Tab) 20 meq BID17 PO 01/31/17 09:00 03/02/17 08:59 01/31/17 10:11 20 MEQ Objective Vital Signs Date Time Temp Pulse Resp B/P (MAP) Pulse Ox O2 Delivery O2 Flow Rate FiO2 01/31/17 11:48 36.6 73 18 117/72 (87) 96 Room Air 01/31/17 08:00 36.6 98 20 111/65 (80) 97 Room Air 01/31/17 08:00 Room Air 01/31/17 04:00 Room Air 01/31/17 03:53 37.0 76 18 119/71 (87) 97 Room Air 01/31/17 00:01 Room Air 01/31/17 00:00 37.1 70 18 110/66 (81) 96 Room Air 01/30/17 20:00 Room Air 01/30/17 19:32 36.6 63 18 126/75 (92) 97 Room Air 01/30/17 16:16 36.4 96 20 123/76 (92) 97 Room Air 01/30/17 16:00 Room Air Physical Exam General Appearance: WD/WN, no apparent distress Eyes: normal inspection, EOMI, sclerae normal Neck: supple, no adenopathy, no JVD, trachea midline Respiratory/Chest: chest non-tender, lungs clear, normal breath sounds, no respiratory distress, no accessory muscle use Cardiovascular: regular rate, rhythm, no gallop, no JVD, no murmur Abdomen: normal bowel sounds, non tender, soft, no organomegaly Extremities: normal range of motion, non-tender, normal inspection, no calf tenderness, + pedal edema (2+ pitting to the knees) 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, no motor/sensory deficits, alert, normal mood/affect, oriented x 3 Skin: normal color, warm/dry, no rash Lymphatic: no adenopathy Laboratory Results Last 24 Hours Test 01/31/17 00:00 01/31/17 06:25 Stool Occult Blood NEGATIVE White Blood Count 6.72 K/uL Red Blood Count 2.99 M/uL Hemoglobin 8.0 g/dL Hematocrit 24.9 % Mean Corpuscular Volume 83.3 fL Mean Corpuscular Hemoglobin 26.8 pg Mean Corpuscular Hemoglobin Concent 32.1 g/dl Platelet Count 208 K/uL Mean Platelet Volume 9.8 fL Neutrophils (%) (Auto) 70.2 % Lymphocytes (%) (Auto) 11.3 % Monocytes (%) (Auto) 14.0 % Eosinophils (%) (Auto) 3.6 % Basophils (%) (Auto) 0.6 % Neutrophils # (Auto) 4.72 K/uL Lymphocytes # (Auto) 0.76 K/uL Monocytes # (Auto) 0.94 K/uL Eosinophils # (Auto) 0.24 K/uL Basophils # (Auto) 0.04 K/uL RDW Standard Deviation 50.9 fL RDW Coefficient of Variation 16.7 % Immature Granulocyte % (Auto) 0.3 % Immature Granulocyte # (Auto) 0.02 K/uL Poikilocytosis PRESENT Target Cells 1+ Schistocytes OCCASIONAL Sodium Level 142 mmol/L Potassium Level 3.3 mmol/L Chloride Level 102 mmol/L Carbon Dioxide Level 34 mmol/L Anion Gap 6.0 mmol/L Blood Urea Nitrogen 60 mg/dl Creatinine 2.00 mg/dl Est Creatinine Clear Calc Drug Dose 35.5 ml/min Estimated GFR () 35.5 Estimated GFR (Non- 30.6 BUN/Creatinine Ratio 29.8 Random Glucose 116 mg/dl Calcium Level 8.9 mg/dl Magnesium Level 2.4 mg/dl Assessment and Plan 81 y/o male with admitted from ED on 01/27 with worsening shortness of breath, weight gain, and swelling. Past medical history of diastolic CHF, CAD s/p CABG x1, HTN, HLD, mechanical AVR , h/o a-fib, sick sinus syndrome, s/p pacemaker, CKD stage III, h/o prostate cancer s/p radiation, and h/o colon cancer s/p partial colectomy Per report during admission, he was hypotensive on arrival with BP of 98/68, otherwise VSS and afebrile. CXR did not show overt pulmonary edema. EKG shows no ischemic changes. Troponin negative. Hgb 8.5. Creatinine elevated above baseline at 3.00. BNP elevated at 2119. - Acute on chronic diastolic heart failure: likely due to interaction with alfuzosin and Lasix, decreasing effectiveness of Lasix continue Lasix 40mg IV BID, Cr actually improving Zaroxolyn started today, follow weights and I/O's prior Echo in September 2016 with EF 65% - SUPRIYA on CKD stage III: improving, Cr down to 2.0 today, continue to monitor while diuresing talmisartan resumed as well as Lasix and Zaroxolyn - Hypokalemia: K is 3.0, will start KCl 20mEq BID while using Lasix - Acute on chronic anemia: likely chronic disease Hb down to 8.0 today from 8.8, could be lab error, no signs of bleeding repeat H/H tomorrow - CAD s/p CABG, HTN--stable. Pt remains hypotensive/low normal continue Imdur, Talmisartan Mechanical AVR -INR therapeutic at 2.8 on admission -Continue warfarin 2.5 mg PO 4x/week and 4 mg PO 3x/week - INR therapeutic Code Status -Level III, FULL NO MECHANICAL VENTILATION Will transfer to medical, continue aggressive diuresis as renal function allows , still with a significant amount of edema Continued [facility] stay due to: multiple IV medications needed Discharge planning: home
[2017-01-31 15:16] VITALS: BP 113/69; PULSE 63; TEMP 36.3; O2SAT 100
[2017-01-31] MEDS: WARFARIN SOD 2.5 MG TAB PO SCH (15:53)
[2017-01-31] MEDS: TELMISARTAN 40 MG TAB PO SCH (20:43)
[2017-01-31 23:08] VITALS: BP 93/56; PULSE 68; TEMP 36.6; O2SAT 98
[2017-02-01] VITALS: BP 101/60
[2017-02-01 05:58] LABS: BASO % 0.8 %; BASO ABS # 0.06 K/uL (0-0.2); EOS % 4.5 %; IG% 0.1 %; LYMPH % 12.3 %; LYMPH ABS # 0.91 K/uL (1.2-3.4); MEAN CELL VOLUME 83.6 fL (80-100); MEAN CORPUSCULAR HEMOGLOBIN 26.3 pg (25-34); MEAN CORPUSCULAR HGB CONC 31.4 g/dl (32-36); MEAN PLATELET VOLUME 9.4 fL (7.4-10.4); MONO % 11.9 %; NEUT % 70.4 %; PLATELET COUNT 219 K/uL (130-400); RED BLOOD COUNT 3.35 M/uL (4.7-6.1); WHITE BLOOD COUNT 7.37 K/uL (4.8-10.8)
[2017-02-01 06:24] LABS: COMPLETE YES; HYPOCHROMIA PRESENT; POLYCHROMASIA 1+; SCHISTOCYTES 1+
[2017-02-01 06:29] LABS: BUN/CREATININE RATIO 30.7 (10-20); CALCIUM 9.8 mg/dl (8.5-10.1); CREATININE 1.8 mg/dl (0.60-1.40); MAGNESIUM 2.4 mg/dl (1.8-2.4); PHOSPHORUS 3.1 mg/dl (2.5-4.9); POTASSIUM 3.6 mmol/L (3.5-5.1)
[2017-02-01 07:12] VITALS: BP 110/68; PULSE 79; TEMP 36.4; O2SAT 97
[2017-02-01] MEDS: CHOLECALCIFEROL 400 INTER.UNIT TAB PO SCH (08:49)
[2017-02-01] MEDS: CALCIUM 600MG + VIT D 400 IU TAB PO SCH (08:49)
[2017-02-01] MEDS: ASCORBIC ACID 500 MG TAB PO SCH (08:49)
[2017-02-01] MEDS: METOLAZONE 5 MG TAB PO SCH (08:50)
[2017-02-01] MEDS: ISOSORBIDE MONONITRATE 30 MG TABCR PO SCH (08:50)
[2017-02-01] MEDS: [UNRECOGNIZED DRUG - OTHER] PO SCH (08:52)
[2017-02-01] MEDS: FUROSEMIDE INJ 40 MG in SYRINGE 0 ML IV SCH ×2 (08:53→17:03)
[2017-02-01] MEDS: POTASSIUM CHLORIDE 20 MEQ TABCR PO SCH ×2 (08:53→17:03)
[2017-02-01 15:29] VITALS: BP 111/68; PULSE 64; TEMP 36.5; O2SAT 96
--- NOTE | 2017-02-01 15:49 | Progress Note ---
Subjective Date of Service: Feb 01, 2017. Subjective Pt evaluation today including: conversation w/ patient, physical exam, lab review, review of inpatient medication list Pain: no pain PO Intake: adequate Voiding: no voiding problems patient responding well to Zaroxolyn again this AM, urinating a lot weight down 13 pounds from admission, still up 14 pounds from baseline still with significant pitting edema in legs, resolved in back and buttocks reviewed labs, Cr 1.8 Problem List Medical Problems: (1) Acute renal insufficiency Status: Acute (2) Bilateral lower extremity edema Status: Acute (3) Dysuria Status: Acute (4) Neck pain on right side Status: Acute (5) Right shoulder pain Status: Acute (6) Shoulder pain Status: Acute Review of Systems Constitutional: + weakness Cardiac: + edema All Other Systems: Reviewed and Negative Medications Current Inpatient Medications Medications (Trade) Dose Ordered Sig/Juanjo Route Start Time Stop Time Status Last Admin Dose Admin Acetaminophen (Tylenol Tab) 650 mg Q4H PRN PO 01/27/17 17:15 02/26/17 17:14 Al Hydrox/Mg Hydrox/Simethicone (Maalox Max Susp) 15 ml Q4H PRN PO 01/27/17 17:15 02/26/17 17:14 Magnesium Hydroxide (Milk Of Magnesia Susp) 30 ml Q12H PRN PO 01/27/17 17:15 02/26/17 17:14 Ondansetron HCl (Zofran Inj) 4 mg Q6H PRN IV 01/27/17 17:15 02/26/17 17:14 Polyethylene (Miralax Powder Packet) 17 gm DAILY PRN PO 01/27/17 17:15 02/26/17 17:14 Furosemide 40 mg/ Syringe 4 ml @ 4 mls/min BID17 IV 01/28/17 09:00 02/27/17 08:59 02/01/17 08:53 4 MLS/MIN Ascorbic Acid (Vitamin C Tab) 500 mg QAM PO 01/28/17 09:00 02/27/17 08:59 02/01/17 08:49 500 MG Aspirin (Ecotrin Tab) 81 mg Q2D@0900 PO 01/29/17 09:00 02/28/17 08:59 01/31/17 07:56 81 MG Cholecalciferol (Vitamin D Tab) 400 inter.unit QAM PO 01/28/17 09:00 02/27/17 08:59 02/01/17 08:49 400 INTER.UNIT Isosorbide Mononitrate (Imdur Ext Rel Tab) 30 mg QAM PO 01/28/17 09:00 02/27/17 08:59 02/01/17 08:50 30 MG Meclizine HCl (Antivert Tab) 25 mg TID PRN PO 01/27/17 17:30 02/26/17 17:29 Nitroglycerin (Nitrostat Tab) 0.4 mg PRN PRN UT 01/27/17 17:30 02/26/17 17:29 Warfarin Sodium (Coumadin Tab) 2.5 mg SuMoWeFr@1600 PO 01/28/17 16:00 02/27/17 15:59 01/31/17 15:53 2.5 MG Warfarin Sodium (Coumadin Tab) 4 mg TuThSa@1600 PO 01/29/17 16:00 02/28/17 15:59 01/29/17 16:34 4 MG Calcium/Vitamin D (Caltrate Plus Tab) 1 tab QAM PO 01/30/17 09:00 03/01/17 08:59 02/01/17 08:49 1 TAB Telmisartan (Micardis Tab) 40 mg QPM PO 01/30/17 21:00 03/01/17 20:59 01/31/17 20:43 40 MG Metolazone (Zaroxolyn Tab) 5 mg DAILY@0830 PO 01/31/17 08:30 03/02/17 08:29 02/01/17 08:50 5 MG Potassium Chloride (Klor-Con Tab) 20 meq BID17 PO 01/31/17 09:00 03/02/17 08:59 02/01/17 08:53 20 MEQ Objective Vital Signs Date Time Temp Pulse Resp B/P (MAP) Pulse Ox O2 Delivery O2 Flow Rate FiO2 02/01/17 15:29 36.5 64 18 111/68 (82) 96 Room Air 02/01/17 08:00 Room Air 02/01/17 07:12 36.4 79 18 110/68 (82) 97 Room Air 02/01/17 00:00 Room Air 02/01/17 00:00 101/60 (74) 01/31/17 23:08 36.6 68 18 93/56 (68) 98 Room Air 01/31/17 16:00 Room Air Physical Exam General Appearance: WD/WN, no apparent distress Eyes: normal inspection, EOMI, sclerae normal ENT: normal ENT inspection, hearing grossly normal, pharynx normal Neck: supple, no adenopathy, no JVD, trachea midline Respiratory/Chest: chest non-tender, lungs clear, normal breath sounds, no respiratory distress, no accessory muscle use Cardiovascular: regular rate, rhythm, no gallop, no JVD, no murmur Abdomen: normal bowel sounds, non tender, soft, no organomegaly Extremities: normal range of motion, non-tender, normal inspection, no calf tenderness, pelvis stable, + pertinent finding (pitting edema from knee down, minimal change since yesterday) 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, no motor/sensory deficits, alert, normal mood/affect, oriented x 3 Skin: normal color, warm/dry, no rash Lymphatic: no adenopathy Laboratory Results Last 24 Hours Test 02/01/17 05:25 White Blood Count 7.37 K/uL Red Blood Count 3.35 M/uL Hemoglobin 8.8 g/dL Hematocrit 28.0 % Mean Corpuscular Volume 83.6 fL Mean Corpuscular Hemoglobin 26.3 pg Mean Corpuscular Hemoglobin Concent 31.4 g/dl Platelet Count 219 K/uL Mean Platelet Volume 9.4 fL Neutrophils (%) (Auto) 70.4 % Lymphocytes (%) (Auto) 12.3 % Monocytes (%) (Auto) 11.9 % Eosinophils (%) (Auto) 4.5 % Basophils (%) (Auto) 0.8 % Neutrophils # (Auto) 5.18 K/uL Lymphocytes # (Auto) 0.91 K/uL Monocytes # (Auto) 0.88 K/uL Eosinophils # (Auto) 0.33 K/uL Basophils # (Auto) 0.06 K/uL RDW Standard Deviation 52.3 fL RDW Coefficient of Variation 17.0 % Immature Granulocyte % (Auto) 0.1 % Immature Granulocyte # (Auto) 0.01 K/uL Polychromasia 1+ Hypochromasia PRESENT Schistocytes 1+ Sodium Level 141 mmol/L Potassium Level 3.6 mmol/L Chloride Level 99 mmol/L Carbon Dioxide Level 35 mmol/L Anion Gap 7.0 mmol/L Blood Urea Nitrogen 55 mg/dl Creatinine 1.80 mg/dl Est Creatinine Clear Calc Drug Dose 39.4 ml/min Estimated GFR () 40.3 Estimated GFR (Non- 34.8 BUN/Creatinine Ratio 30.7 Random Glucose 114 mg/dl Calcium Level 9.8 mg/dl Phosphorus Level 3.1 mg/dl Magnesium Level 2.4 mg/dl Assessment and Plan 81 y/o male with admitted from ED on 01/27 with worsening shortness of breath, weight gain, and swelling. Past medical history of diastolic CHF, CAD s/p CABG x1, HTN, HLD, mechanical AVR , h/o a-fib, sick sinus syndrome, s/p pacemaker, CKD stage III, h/o prostate cancer s/p radiation, and h/o colon cancer s/p partial colectomy Per report during admission, he was hypotensive on arrival with BP of 98/68, otherwise VSS and afebrile. CXR did not show overt pulmonary edema. EKG shows no ischemic changes. Troponin negative. Hgb 8.5. Creatinine elevated above baseline at 3.00. BNP elevated at 2119. - Acute on chronic diastolic heart failure: likely due to interaction with alfuzosin and Lasix, decreasing effectiveness of Lasix continue Lasix 40mg IV BID, Cr actually improving, down to 1.8 today continue Zaroxolyn qAM, follow weights and I/O's, weight down 13 pounds since admission prior Echo in September 2016 with EF 65% - SUPRIYA on CKD stage III: resolved, Cr down to 1.8 today, continue to monitor while diuresing talmisartan resumed as well as Lasix and Zaroxolyn - Hypokalemia: K is 3.6, will continue KCl 20mEq BID while using Lasix - Acute on chronic anemia: likely chronic disease Hb up to 8.8 from 8.0, again, no signs of bleeding repeat H/H tomorrow - CAD s/p CABG, HTN--stable. Pt remains hypotensive/low normal continue Imdur, Talmisartan Mechanical AVR -INR therapeutic on admission -Continue warfarin 2.5 mg PO 4x/week and 4 mg PO 3x/week Code Status -Level III, FULL NO MECHANICAL VENTILATION continue aggressive diuresis Continued [facility] stay due to: multiple IV medications needed Discharge planning: home
[2017-02-01] MEDS: WARFARIN SOD 4 MG TAB PO SCH (17:02)
[2017-02-01] MEDS: TELMISARTAN 40 MG TAB PO SCH (21:02)
[2017-02-01 23:48] VITALS: BP 94/57; PULSE 79; TEMP 36.8; O2SAT 98
[2017-02-02 07:20] VITALS: BP 104/62; PULSE 87; TEMP 36.4; O2SAT 94
[2017-02-02] MEDS: CALCIUM 600MG + VIT D 400 IU TAB PO SCH (08:17)
[2017-02-02] MEDS: CHOLECALCIFEROL 400 INTER.UNIT TAB PO SCH (08:17)
[2017-02-02] MEDS: ISOSORBIDE MONONITRATE 30 MG TABCR PO SCH (08:17)
[2017-02-02] MEDS: METOLAZONE 5 MG TAB PO SCH (08:18)
[2017-02-02] MEDS: [UNRECOGNIZED DRUG - OTHER] PO SCH (08:18)
[2017-02-02] MEDS: ASPIRIN 81 MG ECTAB PO SCH (08:18)
[2017-02-02] MEDS: POTASSIUM CHLORIDE 20 MEQ TABCR PO SCH ×2 (08:18→16:59)
[2017-02-02] MEDS: ASCORBIC ACID 500 MG TAB PO SCH (08:18)
[2017-02-02] MEDS: FUROSEMIDE INJ 40 MG in SYRINGE 0 ML IV SCH ×2 (08:49→16:59)
[2017-02-02 09:55] LABS: BUN/CREATININE RATIO 27.9 (10-20); CALCIUM 9.9 mg/dl (8.5-10.1); CREATININE 1.9 mg/dl (0.60-1.40); POTASSIUM 3.4 mmol/L (3.5-5.1)
--- NOTE | 2017-02-02 10:07 | CARDIOLOGY PROGRESS NOTE ---
DATE: 02/02/2017 SUBJECTIVE: Mr. Bradley is resting comfortably in the bedside chair without complaints of chest pain or dyspnea. He has been ambulatory around his room without difficulty. OBJECTIVE: VITAL SIGNS: Blood pressure is 104/62 with a regular pulse of 87. Respiratory rate is 18 and the patient is afebrile at 36.4 degrees Celsius. Saturation is 94% on room air. NECK: Supple with full carotid upstrokes. No obvious bruits. Jugular venous pressure demonstrates a prominent V wave to the angle of the jaw. There is no thyromegaly. CARDIOVASCULAR: Reveals a regular rhythm with a 2/6 crescendo decrescendo systolic murmur heard loudest at the base. [place] mechanical valve sounds noted. No diastolic murmurs. LUNGS: Clear without rales, rhonchi, or wheezes. ABDOMEN: Obese without bruits. EXTREMITIES: Reveal intact radial artery pulses bilaterally. 1-2+ pitting edema to the thighs bilaterally. DATA: PRP is pending. Weight is 96.2 kg, down 1 kg since yesterday. IMPRESSION AND PLAN: 1. Acute on chronic diastolic congestive heart failure -- the patient continues to diurese on intravenous Lasix and 1 dose of metolazone every morning. 2. Coronary artery disease -- status post coronary artery bypass grafting x1 (SVG to OM) in [address]. 3[address]'s mechanical aortic valve replacement -- surgery performed in 1991. In September, echocardiogram revealed elevated velocities across the prosthesis. 4. Moderate mitral stenosis. 5. Cor pulmonale -- with severe pulmonary hypertension. 6. Tachycardia/bradycardia syndrome -- in permanent atrial fibrillation. VVI pacer placed in April 2009. 7. Chronic lower extremity edema. 8. Chronic renal failure. 9. Diabetes mellitus.
--- NOTE | 2017-02-02 10:13 | Progress Note ---
Subjective Date of Service: Feb 02, 2017. Subjective Pt evaluation today including: conversation w/ patient, physical exam, lab review, review of inpatient medication list Pain: no pain PO Intake: adequate Voiding: no voiding problems continues to diurese well, weight down to 212lbs today evaluated by cardiology, would like to keep one more night, patient agrees no labs ordered this AM, will check BMP, ordered for tomorrow as well, Cr had been improving every day patient having difficulty sleeping, this is chronic issue at home as well Problem List Medical Problems: (1) Acute renal insufficiency Status: Acute (2) Bilateral lower extremity edema Status: Acute (3) Dysuria Status: Acute (4) Neck pain on right side Status: Acute (5) Right shoulder pain Status: Acute (6) Shoulder pain Status: Acute Review of Systems Cardiac: + edema Psychiatric: + insomnia All Other Systems: Reviewed and Negative Medications Current Inpatient Medications Medications (Trade) Dose Ordered Sig/Juanjo Route Start Time Stop Time Status Last Admin Dose Admin Acetaminophen (Tylenol Tab) 650 mg Q4H PRN PO 01/27/17 17:15 02/26/17 17:14 Al Hydrox/Mg Hydrox/Simethicone (Maalox Max Susp) 15 ml Q4H PRN PO 01/27/17 17:15 02/26/17 17:14 Magnesium Hydroxide (Milk Of Magnesia Susp) 30 ml Q12H PRN PO 01/27/17 17:15 02/26/17 17:14 Ondansetron HCl (Zofran Inj) 4 mg Q6H PRN IV 01/27/17 17:15 02/26/17 17:14 Polyethylene (Miralax Powder Packet) 17 gm DAILY PRN PO 01/27/17 17:15 02/26/17 17:14 Furosemide 40 mg/ Syringe 4 ml @ 4 mls/min BID17 IV 01/28/17 09:00 02/27/17 08:59 02/02/17 08:49 4 MLS/MIN Ascorbic Acid (Vitamin C Tab) 500 mg QAM PO 01/28/17 09:00 02/27/17 08:59 02/02/17 08:18 500 MG Aspirin (Ecotrin Tab) 81 mg Q2D@0900 PO 01/29/17 09:00 02/28/17 08:59 02/02/17 08:18 81 MG Cholecalciferol (Vitamin D Tab) 400 inter.unit QAM PO 01/28/17 09:00 02/27/17 08:59 02/02/17 08:17 400 INTER.UNIT Isosorbide Mononitrate (Imdur Ext Rel Tab) 30 mg QAM PO 01/28/17 09:00 02/27/17 08:59 02/02/17 08:17 30 MG Meclizine HCl (Antivert Tab) 25 mg TID PRN PO 01/27/17 17:30 02/26/17 17:29 Nitroglycerin (Nitrostat Tab) 0.4 mg PRN PRN UT 01/27/17 17:30 02/26/17 17:29 Warfarin Sodium (Coumadin Tab) 2.5 mg SuMoWeFr@1600 PO 01/28/17 16:00 02/27/17 15:59 01/31/17 15:53 2.5 MG Warfarin Sodium (Coumadin Tab) 4 mg TuThSa@1600 PO 01/29/17 16:00 02/28/17 15:59 02/01/17 17:02 4 MG Calcium/Vitamin D (Caltrate Plus Tab) 1 tab QAM PO 01/30/17 09:00 03/01/17 08:59 02/02/17 08:17 1 TAB Telmisartan (Micardis Tab) 40 mg QPM PO 01/30/17 21:00 03/01/17 20:59 02/01/17 21:02 40 MG Metolazone (Zaroxolyn Tab) 5 mg DAILY@0830 PO 01/31/17 08:30 03/02/17 08:29 02/02/17 08:18 5 MG Potassium Chloride (Klor-Con Tab) 20 meq BID17 PO 01/31/17 09:00 03/02/17 08:59 02/02/17 08:18 20 MEQ Objective Vital Signs Date Time Temp Pulse Resp B/P (MAP) Pulse Ox O2 Delivery O2 Flow Rate FiO2 02/02/17 07:20 36.4 87 18 104/62 (76) 94 Room Air 02/02/17 00:00 Room Air 02/01/17 23:48 36.8 79 20 94/57 (69) 98 Room Air 02/01/17 16:00 Room Air 02/01/17 15:29 36.5 64 18 111/68 (82) 96 Room Air Physical Exam General Appearance: WD/WN, no apparent distress ENT: normal ENT inspection, hearing grossly normal, pharynx normal Neck: supple, no adenopathy, no JVD, trachea midline Respiratory/Chest: chest non-tender, lungs clear, normal breath sounds, no respiratory distress, no accessory muscle use Cardiovascular: regular rate, rhythm, no edema, no gallop, no JVD, no murmur Abdomen: normal bowel sounds, non tender, soft, no organomegaly Extremities: normal range of motion, non-tender, normal inspection, no calf tenderness, + pedal edema (pitting, slightly better) 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, no motor/sensory deficits, alert, normal mood/affect, oriented x 3 Skin: normal color, warm/dry, no rash Lymphatic: no adenopathy Laboratory Results Last 24 Hours Test 02/02/17 09:10 Sodium Level 140 mmol/L Potassium Level 3.4 mmol/L Chloride Level 98 mmol/L Carbon Dioxide Level 36 mmol/L Anion Gap 6.0 mmol/L Blood Urea Nitrogen 53 mg/dl Creatinine 1.90 mg/dl Est Creatinine Clear Calc Drug Dose 36.7 ml/min Estimated GFR () 37.7 Estimated GFR (Non- 32.6 BUN/Creatinine Ratio 27.9 Random Glucose 167 mg/dl Calcium Level 9.9 mg/dl Assessment and Plan 81 y/o male with admitted from ED on 01/27 with worsening shortness of breath, weight gain, and swelling. Past medical history of diastolic CHF, CAD s/p CABG x1, HTN, HLD, mechanical AVR , h/o a-fib, sick sinus syndrome, s/p pacemaker, CKD stage III, h/o prostate cancer s/p radiation, and h/o colon cancer s/p partial colectomy Per report during admission, he was hypotensive on arrival with BP of 98/68, otherwise VSS and afebrile. CXR did not show overt pulmonary edema. EKG shows no ischemic changes. Troponin negative. Hgb 8.5. Creatinine elevated above baseline at 3.00. BNP elevated at 2119. - Acute on chronic diastolic heart failure: likely due to interaction with alfuzosin and Lasix, decreasing effectiveness of Lasix continue Lasix 40mg IV BID, Cr was 1.8, will repeat today and tomorrow continue Zaroxolyn qAM, follow weights and I/O's, weight down 15 pounds since admission prior Echo in September 2016 with EF 65% cardiology would like to keep today for further diuresis, likely for d/c to home tomorrow, patient agrees with plan - SUPRIYA on CKD stage III: resolved, Cr down to 1.8 on 02/01, continue to monitor while diuresing talmisartan resumed as well as Lasix and Zaroxolyn - Hypokalemia: K was 3.6 yesterday, will continue KCl 20mEq BID while using Lasix, repeat BMP today - Acute on chronic anemia: likely chronic disease stable, Hb 8.8 - CAD s/p CABG, HTN--stable. Pt remains hypotensive/low normal continue Imdur, Talmisartan Mechanical AVR -INR therapeutic on admission -Continue warfarin 2.5 mg PO 4x/week and 4 mg PO 3x/week Code Status -Level III, FULL NO MECHANICAL VENTILATION continue aggressive diuresis, likely for d/c to home tomorrow Continued [facility] stay due to: multiple IV medications needed Discharge planning: home
[2017-02-02 15:01] VITALS: BP 94/52; PULSE 74; TEMP 36.6; O2SAT 98
[2017-02-02] MEDS: WARFARIN SOD 2.5 MG TAB PO SCH (16:07)
[2017-02-02 20:11] VITALS: BP 94/52; PULSE 74; TEMP 36.6; O2SAT 98
[2017-02-02] MEDS: TELMISARTAN 40 MG TAB PO SCH (21:25)
[2017-02-03 00:08] VITALS: BP 96/61; PULSE 73; TEMP 36.3; O2SAT 97
[2017-02-03 06:32] LABS: BUN/CREATININE RATIO 29.5 (10-20); CALCIUM 9.5 mg/dl (8.5-10.1); CREATININE 1.8 mg/dl (0.60-1.40); POTASSIUM 3.7 mmol/L (3.5-5.1)
[2017-02-03 07:11] VITALS: BP 103/67; PULSE 89; TEMP 36.5; O2SAT 98
[2017-02-03] MEDS: ASCORBIC ACID 500 MG TAB PO SCH (08:43)
[2017-02-03] MEDS: POTASSIUM CHLORIDE 20 MEQ TABCR PO SCH (08:43)
[2017-02-03] MEDS ORDERED: METO5TAB25 PO (08:43)
[2017-02-03] MEDS ORDERED: MCRK20 PO (08:43)
[2017-02-03] MEDS: [UNRECOGNIZED DRUG - OTHER] PO SCH (08:44)
[2017-02-03] MEDS: FUROSEMIDE INJ 40 MG in SYRINGE 0 ML IV SCH (08:44)
[2017-02-03] MEDS: ISOSORBIDE MONONITRATE 30 MG TABCR PO SCH (08:45)
[2017-02-03] MEDS: CALCIUM 600MG + VIT D 400 IU TAB PO SCH (08:45)
[2017-02-03] MEDS: CHOLECALCIFEROL 400 INTER.UNIT TAB PO SCH (08:46)
[2017-02-03] MEDS: METOLAZONE 5 MG TAB PO SCH (08:46)
--- NOTE | 2017-02-03 08:51 | Discharge Instructions ---
Discharge Instructions Date of Service Feb 03, 2017. Admission Reason for Admission: Acute on chronic diastolic heart failure Discharge Discharge Diagnosis / Problem: Acute on chronic diastolic heart failure, acute renal failure on CKD Discharge Goals Goal(s): Improve function, Improve disease control Activity Recommendations Activity Limitations: resume your previous activity Lifting Limitations: none Exercise/Sports Limitations: as tolerated May Resume Sexual Activity: when tolerated Shower/Bathe: no limitations Driving or Machine Use: no limitations . Instructions / Follow-Up Instructions / Follow-Up Medications: - LASIX: continue to take 40mg twice a day - METOLAZONE: take in the morning on Tuesday, Tuesday and Tuesday 30 minutes prior to morning Lasix, this will enhance effect of Lasix - POTASSIUM: take 20mEq once a day Acute heart failure: due to alfazosin interacting with Lasix, you have lost 14- 15 pounds of fluid since admission, still weigh more than baseline but you can continue to diurese at home weigh yourself every morning after you urinate and before eating breakfast sleep with legs elevated, keep legs elevated during the day while sitting call Dr. Ramon with any questions or concerns Acute renal failure on chronic kidney disease: renal function has returned to baseline and has remained stable with Lasix today your Cr is 1.8 your potassium has been low normal or even low at times, take 20 mEq of potassium every day FOLLOW UP - call Dr. Arguello's office for appointment in one week - call Dr. Ramon's office for appointment in 2-3 weeks Call your Primary Care doctor if any of the following symptoms or problems start or get worse: * Shortness of breath or difficulty breathing * Wake up at night short of breath * Chest pain * Cough * Swelling of your hands, feet, or legs * More fatigued or tired with your normal activity * Palpitations - sudden fast heart beats WEIGHT * Weigh yourself every morning after using the bathroom. * Use the same scale. * Wear the same amount of clothing. * Write your weight down on a chart. * Call your Primary Care doctor if you gain more than 2-3 pounds in 1-2 days. MEDICATIONS * Use this discharge instruction sheet for medication instructions. * Take your medications at the time your doctor ordered. * Do not skip a dose of your medicines. * If you miss a dose of medicine, take it as soon as possible, but DO NOT DOUBLE A DOSE. * Read your medicine information when you get home. * Know all of the side effects of your medicine. If in doubt, ask your pharmacist * Call your Primary Care doctor's office if you have any side effects. * Be sure all of your doctors know what medicine and herbs you take (including cold, flu, and herbal medicine). Take the following with you to your follow-up doctor appointments: * Weight Chart * Medication List * List of questions Do not drink excessive alcohol, beer or wine. Current Hospital Diet Patient's current hospital diet: Low Sodium Diet (2gm Na), AHA Diet (Heart Healthy) Discharge Diet Recommended Diet: AHA Diet (Heart Healthy) Fluid Restriction: 1800 ml (7 cups) Pending Studies Studies pending at discharge: no Medical Emergencies . Who to Call and When: Call 911 or go to the Emergency Room if: * If at any time you feel your situation is an emergency * You have tightness or pain in your chest that does not go away with rest or Nitroglycerin * You are very short of breath even with rest . Non-Emergent Contact Non-Emergency issues call your: Primary Care Provider, Manager Home [facility] Call Non-Emergent contact if: you have any medication questions . . "Provider Documentation" section prepared by Tesfaye Cedeño. . VTE Core Measure Inpt VTE Proph given/why not?: Warfarin (Coumadin), SCD's [place] Drug Monitoring Program Search Results: no issues identified
--- NOTE | 2017-02-03 10:07 | CARDIOLOGY PROGRESS NOTE ---
DATE: 02/03/2017 DATE: 02/03/2017 SUBJECTIVE: Mr. Bradley is resting comfortably in bed without complaints of chest pain, dyspnea, palpitations, syncope, or presyncope. He is anxious for hospital discharge. OBJECTIVE: VITAL SIGNS: Blood pressure 103/67 with a regular pulse of 80. Respiratory rate is 20 and the patient is afebrile at 36.5 degrees Celsius. Saturations 98% on room air. Weight is 95.8 kg, down 0.4 kg from yesterday. NECK: Supple with full carotid upstrokes. No obvious bruits. A prominent V-wave is seen within the jugular pulsation. CARDIOVASCULAR EXAMINATION: Reveals a regular rhythm with a 2/6 crescendo decrescendo systolic murmur heard loudest at the base. [place] mechanical valve sounds noted. No diastolic murmurs. S2 is split. LUNGS: Clear without rales, rhonchi, or wheezes. ABDOMEN: Obese without bruits. EXTREMITIES: Reveal intact radial artery pulses bilaterally. 1-2+ pitting edema noted to the knees. Trace edema in the thigh. LABORATORY DATA: Electrolytes note a sodium of 141, potassium 3.7, chloride 101, bicarb 34, BUN 53, creatinine 1.8, glucose 108. IMPRESSION AND PLAN: 1. Acute on chronic diastolic congestive heart failure -- the patient continues to diurese on his current regimen. Reviewed the use of sliding scale diuretics and daily weights when at home. 2. Coronary artery disease -- status post coronary artery bypass grafting x1 (SVG to OM) in 1991. [address] [facility] [place] mechanical aortic valve replacement -- 1991. Echocardiogram in September noted elevated velocities across the prosthesis. 4. Moderate mitral stenosis. 5. Cor pulmonale -- severe pulmonary hypertension 6. Chronic lower extremity edema. 7. 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 VVI pacer in April 2009. 8. Chronic renal failure. 9. Diabetes mellitus. 10. Disposition -- stable for hospital discharge from a cardiac perspective.
[2017-02-03 11:02] VITALS: BP 103/67; PULSE 89; TEMP 36.5; O2SAT 98
--- NOTE | 2017-02-04 09:31 | Discharge Summary ---
Discharge Summary Date of Service Feb 03, 2017. Discharge Summary Admission Date: Jan 27, 2017 at 17:20 Discharge Date: Feb 03, 2017 Discharge Disposition: Home Principal Diagnosis: Acute diastolic heart failure Problems/Secondary Diagnoses: SUPRIYA on CKD stage III, resolved Anemia Hypokalemia CAD Immunizations: Have You Had Influenza Vaccine: Yes History of Tetanus Vaccine?: Yes History of Pneumococcal: Yes History of Hepatitis B Vaccine: No Procedures: none Consultations: Cardiology Nephrology Medication Reconciliation New Medications: Potassium Chloride (Klor-Con M20) 20 Meq Tabcr 20 MEQ PO DAILY, #30 TABS 3 Refills Changed Medications: Metolazone (Zaroxolyn) 5 Mg Tab 5 MG PO UD PRN for edema, #30 TABS 2 Refills (Changed from: Refills: ; takes ~1 hour before Bumex, no more than 1x/wk) take 30 minutes before Lasix on Tuesday, Tuesday and Tuesday Continued Medications: Ascorbic Acid (Ascorbic Acid) 500 Mg Tab 500 MG PO QAM Aspirin (Aspirin Ec) 81 Mg Tab 81 MG PO Q2D Calcium Carbonate-Cholecalcife (Caltrate 600+D) 1 Tab Tab 1 TAB PO QAM Cholecalciferol (Vitamin D 400 Iu) 400 Unit Cap 400 INTER.UNIT PO QAM Furosemide (Furosemide) 40 Mg Tab 1 TAB PO BID Glucosamine-Chondroitin (Osteo Bi-Flex Regular Str) 1 Tab Tab 1 TAB PO QAM Isosorbide Mononitrate Ext Rel (Imdur Ext Rel) 30 Mg Ertab 30 MG PO QAM, TAB Meclizine HCl (Meclizine HCl) 25 Mg Tab 25 MG PO TID PRN for Dizziness or Vertigo Nitroglycerin (Nitrostat) 0.4 Mg Tab 0.4 MG UT PRN PRN for Chest Pain Red Yeast Rice Extract (Red Yeast Rice) 600 Mg Cap 1200 MG PO QAM Telmisartan (Micardis) 40 Mg Tab 40 MG PO QPM Warfarin Sod (Jantoven) 5 Mg Tab 2.5 MG PO 4XWK Warfarin Sodium (Warfarin Sodium) 4 Mg Tab 4 MG PO 3XWK M// Discharge Exam Patient doing well, weight down 15 pounds since admission, Cr holding steady, ambulating well. Reviewed plan for discharge with Zaroxolyn TID and weighing himself every morning and calling cardiology immediately if weight went up. Knows about fluid restriction will follow up closely with Dr. Samaniego Review of Systems: Constitutional: No fever, No chills, No sweats, No weight loss, No weakness , No fatigue, No problem reported Eyes: No worsening of vision, No eye pain, No redness, No discharge, No diplopia, No problem reported ENT: No hearing loss, No unusual epistaxis, No nasal symptoms, No sore throat, No tinnitus, No dental problems, No trouble swallowing, No problem reported Respiratory: No cough, No sputum, No wheezing, No shortness of breath, No dyspnea on exertion, No dyspnea at rest, No hemoptysis, No problem reported Cardiovascular: + edema, No chest pain, No orthopnea, No PND, No claudication, No palpitations, No problem reported Abdomen: No pain, No nausea, No vomiting, No diarrhea, No constipation, No GI bleeding, No problem reported Musculoskeletal: No joint pain, No muscle pain, No swelling, No calf pain, No problem reported Genitourinary - Male: No hematuria, No dysuria, No urinary frequency, No urinary urgency Neurologic: No memory loss, No paralysis, No weakness, No numbness/tingling , No vertigo, No balance problems, No problem reported Psychiatric: No depression symptoms, No anhedonism, No anxiety, No insomnia , No substance abuse, No problem reported Endocrine: No fatigue, No excessive thirst, No excessive urination, No problem reported Integumentary: No rash, No itch, No new/changing skin lesions, No color change, No bleeding, No problem reported Physical Exam: General Appearance: WD/WN, no apparent distress Eyes: normal inspection, EOMI, sclerae normal ENT: normal ENT inspection, hearing grossly normal, pharynx normal Neck: supple, no adenopathy, no JVD, trachea midline Respiratory/Chest: chest non-tender, lungs clear, normal breath sounds, no respiratory distress, no accessory muscle use Cardiovascular: regular rate, rhythm, no edema, no gallop, no JVD, no murmur , normal peripheral pulses Abdomen / GI: normal bowel sounds, non tender, soft, no organomegaly Extremities: normal inspection, no calf tenderness, normal capillary refill , normal range of motion, pelvis stable, + pedal edema (2+ pitting below the knee) 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 Past medical history of diastolic CHF, CAD s/p CABG x1, HTN, HLD, mechanical AVR , h/o a-fib, sick sinus syndrome, s/p pacemaker, CKD stage III, h/o prostate cancer s/p radiation, and h/o colon cancer s/p partial colectomy Per report during admission, he was hypotensive on arrival with BP of 98/68, otherwise VSS and afebrile. CXR did not show overt pulmonary edema. EKG shows no ischemic changes. Troponin negative. Hgb 8.5. Creatinine elevated above baseline at 3.00. BNP elevated at 2119. - Acute on chronic diastolic heart failure: likely due to interaction with alfuzosin and Lasix, decreasing effectiveness of Lasix, gained 27 pounds prior to admission treated with Lasix 40mg IV BID, Cr stable at 1.8 added Zaroxolyn qAM prior to morning Lasix with increased diuresis follow weights and I/O's, weight down 15-16 pounds since admission prior Echo in September 2016 with EF 65% cleared for discharge by cardiology specific heart failure instructions provided, knows to weigh himself daily, fluid restrict will be on lasix 40mg PO BID with Zaroxolyn 5mg MWF mornings prior to Lasix will call cardiology immediately if weight trends upward - SUPRIYA on CKD stage III: resolved, Cr down to 1.8 on 02/01 and remains stable talmisartan resumed as well as Lasix and Zaroxolyn - Hypokalemia: stable, will continue 20mEq daily since he will be on Zaroxolyn - Acute on chronic anemia: likely chronic disease, stable, no signs of bleeding - CAD s/p CABG, HTN--stable. Pt remains hypotensive/low normal continue Imdur, Talmisartan Mechanical AVR -INR therapeutic on admission -Continue warfarin 2.5 mg PO 4x/week and 4 mg PO 3x/week Code Status -Level III, FULL NO MECHANICAL VENTILATION Total Time Spent: Greater than 30 minutes This includes examination of the patient, discharge planning, medication reconciliation, and communication with other providers. Discharge Instructions Please refer to the electronic Patient Visit Report (Discharge Instructions) for additional information. Follow-Up Dr. Samaniego in two weeks Dr. Rafita Arguello in one week Additional Copies To Isidro Samaniego M.D.; Rafita Arguello M.D.
[2017-02-04] MEDS ORDERED: METO5TAB25 PO (13:47)
[2017-02-04] MEDS ORDERED: POTA10CA28 PO (13:47)
[2017-03-07] MEDS ORDERED: FERR1TAB13 PO (09:27)
== END 2017-02-03 12:47 | disposition home or self-care (01) | DRG 292 ==
LOC: C.EDB 15:12 → C.2T 17:20 → ENRESERV 17:43 → C.4E 01-31 11:41
PROVIDERS: ADMIT Hospitalist; ATTEND Internal Medicine
DX: I50.33 Acute on chronic diastolic (congestive) heart failure (principal); N17.9 Acute kidney failure, unspecified; I13.0 Hypertensive heart and chronic kidney disease with heart failure and stage 1 through stage 4 chronic kidney disease, or unspecified chronic kidney disease; T44.8X5A Adverse effect of centrally-acting and adrenergic-neuron-blocking agents, initial encounter; T50.1X5A Adverse effect of loop [high-ceiling] diuretics, initial encounter; D64.9 Anemia, unspecified; E87.6 Hypokalemia; I48.91 Unspecified atrial fibrillation; I25.10 Atherosclerotic heart disease of native coronary artery without angina pectoris; E11.9 Type 2 diabetes mellitus without complications; N18.3 Chronic kidney disease, stage 3 (moderate); I27.2 Other secondary pulmonary hypertension; E66.9 Obesity, unspecified; Z51.81 Encounter for therapeutic drug level monitoring; Z79.899 Other long term (current) drug therapy; Z79.01 Long term (current) use of anticoagulants; Z79.82 Long term (current) use of aspirin; Z95.2 Presence of prosthetic heart valve; Z95.1 Presence of aortocoronary bypass graft; Z85.46 Personal history of malignant neoplasm of prostate; Z85.038 Personal history of other malignant neoplasm of large intestine; Z68.29 Body mass index [BMI] 29.0-29.9, adult; Z87.891 Personal history of nicotine dependence; Z83.3 Family history of diabetes mellitus; Z82.49 Family history of ischemic heart disease and other diseases of the circulatory system

== ENCOUNTER → 2017-02-11 | Outpatient (CLI) | payer BC ==
[~2017-02-11] MED LIST changes: +FERR1TAB13 PO; +MCRK20 PO; +POTA10CA28 PO
[2017-02-11 09:32] LABS: BASO % 0.3 %; BASO ABS # 0.02 K/uL (0-0.2); EOS % 2.7 %; HEMATOCRIT 23.8 % (42-52); IG% 0.1 %; LYMPH % 14.2 %; LYMPH ABS # 0.96 K/uL (1.2-3.4); MEAN CELL VOLUME 79.1 fL (80-100); MEAN CORPUSCULAR HEMOGLOBIN 25.9 pg (25-34); MEAN CORPUSCULAR HGB CONC 32.8 g/dl (32-36); MEAN PLATELET VOLUME 9.9 fL (7.4-10.4); MONO % 10.8 %; NEUT % 71.9 %; PLATELET COUNT 199 K/uL (130-400); RED BLOOD COUNT 3.01 M/uL (4.7-6.1); WHITE BLOOD COUNT 6.76 K/uL (4.8-10.8)
[2017-02-11 10:00] LABS: ALB/GLOB RATIO 0.9 (0.9-2); ALKALINE PHOSPHATASE 126 U/L (45-117); ALT/SGPT 23 U/L (12-78); AST/SGOT 29 U/L (15-37); BLOOD UREA NITROGEN 83 mg/dl (7-18); BUN/CREATININE RATIO 29.7 (10-20); CARBON DIOXIDE 31 mmol/L (21-32); CHLORIDE 94 mmol/L (98-107); GLUCOSE 176 mg/dl (70-99); POTASSIUM 4.2 mmol/L (3.5-5.1); SODIUM 133 mmol/L (136-145)
[2017-02-11 10:02] LABS: ACANTHOCYTES 1+; ANISOCYTOSIS PRESENT; COMPLETE YES; HYPERSEGMENTED POLYS 1+; HYPOCHROMIA PRESENT; MICROCYTOSIS PRESENT; SCHISTOCYTES 1+
[2017-02-11 10:05] LABS: PROSTATE SPECIFIC ANTIGEN 0.035 ng/ml (0.000-4.000)
== END | disposition home or self-care (01) ==
LOC: C.LAB 08:19
PROVIDERS: ATTEND Internal Medicine
DX: N18.3 Chronic kidney disease, stage 3 (moderate) (principal); C61 Malignant neoplasm of prostate

== ENCOUNTER → 2017-02-14 | Outpatient (CLI) | payer BC ==
[~2017-02-14] MED LIST changes: -FERR1TAB13 PO
[2017-02-14 17:13] LABS: HEMATOCRIT 25.9 % (42-52); MEAN CORPUSCULAR HGB CONC 31.7 g/dl (32-36); PLATELET COUNT 245 K/uL (130-400); RED BLOOD COUNT 3.28 M/uL (4.7-6.1); WHITE BLOOD COUNT 6.73 K/uL (4.8-10.8)
[2017-02-14 17:19] LABS: BLOOD UREA NITROGEN 74 mg/dl (7-18); BUN/CREATININE RATIO 32.3 (10-20); CALCIUM 9.7 mg/dl (8.5-10.1); CARBON DIOXIDE 32 mmol/L (21-32); CHLORIDE 92 mmol/L (98-107); GLUCOSE 109 mg/dl (70-99); POTASSIUM 3.9 mmol/L (3.5-5.1); SODIUM 134 mmol/L (136-145)
== END | disposition home or self-care (01) ==
LOC: C.LABBC 13:33
PROVIDERS: ATTEND Internal Medicine
DX: Z00.00 Encounter for general adult medical examination without abnormal findings (principal); D64.9 Anemia, unspecified; N18.3 Chronic kidney disease, stage 3 (moderate)

== ENCOUNTER → 2017-02-18 | Outpatient (CLI) | payer BC ==
[~2017-02-18] MED LIST changes: +FERR1TAB13 PO
[2017-02-18 16:26] LABS: BLOOD UREA NITROGEN 67 mg/dl (7-18); BUN/CREATININE RATIO 26.9 (10-20); CALCIUM 9.4 mg/dl (8.5-10.1); CARBON DIOXIDE 34 mmol/L (21-32); CHLORIDE 92 mmol/L (98-107); GLUCOSE 123 mg/dl (70-99); POTASSIUM 4.1 mmol/L (3.5-5.1); SODIUM 133 mmol/L (136-145)
== END | disposition home or self-care (01) ==
LOC: C.LAB 14:16
PROVIDERS: ATTEND Internal Medicine
DX: Z00.00 Encounter for general adult medical examination without abnormal findings (principal)

== ENCOUNTER → 2017-03-07 | Outpatient (CLI) | payer BC ==
[2017-03-07 10:31] LABS: URINE APPEARANCE CLEAR (CLEAR); URINE BILIRUBIN NEG (NEG); URINE COLOR YELLOW; URINE EPITHELIAL CELL AUTO 0-5 /lpf (0-5); URINE NITRITE NEG (NEG); UROBILINOGEN NEG (NEG); ZZUR CULT IF INDIC CLEAN CATCH NO
[2017-03-07 10:33] LABS: MANUAL MICROSCOPIC REQUIRED? NO; REVIEW REQ? NO
[2017-03-07 10:47] LABS: URINE PROTIEN/CREAT RATIO 0.5 (0-0.2); URINE TOTAL PROTEIN 34.5 mg/dl (0-11.9)
[2017-03-07 11:01] LABS: BLOOD UREA NITROGEN 63 mg/dl (7-18); BUN/CREATININE RATIO 29.8 (10-20); CALCIUM 9.5 mg/dl (8.5-10.1); CARBON DIOXIDE 26 mmol/L (21-32); CHLORIDE 98 mmol/L (98-107); GLUCOSE 188 mg/dl (70-99); SODIUM 136 mmol/L (136-145)
== END | disposition home or self-care (01) ==
LOC: C.LAB 09:12
PROVIDERS: ATTEND Physician Assistant
DX: N17.9 Acute kidney failure, unspecified (principal); N18.9 Chronic kidney disease, unspecified; I50.30 Unspecified diastolic (congestive) heart failure